=== PATIENT | male | born 1975 | race Caucasian/White ===

== ENCOUNTER 2019-02-03 08:51 | Inpatient (IN) | payer BC ==
[2019-02-03] MEDS ORDERED: ONDANSETRON 4 MG/2 ML VIAL IVPUSH ONE (09:06)
[2019-02-03] MEDS ORDERED: KETOROLAC TROMETHAMINE 30 MG/1 ML VIAL IVPUSH ONE (09:09)
[2019-02-03] MEDS ORDERED: SODIUM CHLORIDE 1,000 ML IV STA ×2 (09:10→10:56)
--- NOTE | 2019-02-03 09:38 | PDOC ---
History of Present Illness - General Chief Complaint: Pain Stated Complaint: ABD PAIN/ NAUSEOUS Time Seen by Provider: 02/03/19 09:03 History Source: Patient Exam Limitations: No Limitations - History of Present Illness Travel History: No Initial Comments: 02/03/19 09:21 43-year-old male with history of high cholesterol presents to the ED with lower abdominal sharp pain since now associated with nausea and decreased appetite since yesterday. Patient states was constipated and Tuesday but had a normal brown bowel movement this morning. Patient denies history of GI disorders urinary disorders, or recent illness. Patient does state lifts heavy items at work but denies any protrusion of the abdomen since onset. Timing/Duration: reports: constant Quality: reports: mild, sharpness Abdominal Pain Onset Location: reports: RLQ Pain Radiation: reports: groin Activities at Onset: reports: none Aggravating Factors: improves with: None Alleviating Factors: improves with: None Past History - Travel Traveled outside of the country in the last 30 days: No - Past Medical History Allergies/Adverse Reactions: Allergies Allergy/AdvReac Type Severity Reaction Status Date / Time No Known Allergies Allergy Verified 02/03/19 08:57 Home Medications: Ambulatory Orders NK [No Known Home Medication] 02/03/19 COPD: No Hypercholesterolemia: Yes - Suicide/Smoking/Psychosocial Hx Smoking Status: No Smoking History: Never smoked Number of Cigarettes Smoked Daily: 0 Substance Use Type: Alcohol (occas) Hx Substance Use Treatment: No Patient Lives Alone: No Review of Systems - Review of Systems Able to Perform ROS?: Yes Constitutional: No: Symptoms Reported HEENTM: No: Symptoms Reported Respiratory: No: Symptoms reported Cardiac (ROS): No: Symptoms Reported ABD/GI: Yes: Constipated, Nausea, Poor Appetite : No: Symptoms Reported, Flank Pain Musculoskeletal: No: Back Pain Integumentary: No: Symptoms Reported Neurological: No: Symptoms reported Endocrine: No: Symptoms Reported Hematologic/Lymphatic: No: Symptoms Reported *Physical Exam - Vital Signs Last Vital Signs Temp Pulse Resp BP Pulse Ox 112 H 18 147/96 99 02/03/19 08:55 02/03/19 08:55 02/03/19 08:55 02/03/19 08:55 - Physical Exam General Appearance: Yes: Nourished, Appropriately Dressed. No: Apparent Distress HEENT: negative: Pale Conjunctivae Neck: positive: Supple Respiratory/Chest: positive: Lungs Clear, Normal Breath Sounds. negative: Respiratory Distress, Accessory Muscle Use Cardiovascular: positive: Regular Rhythm, Tachycardia. negative: Murmur Gastrointestinal/Abdominal: positive: Normal Bowel Sounds, Soft, Distended, Tenderness (right lower quadrant /right suprapubic). negative: Guarding, Rebound, Hernia, Mass Male Genitalia: positive: normal genitalia Extremity: positive: Normal Inspection Integumentary: positive: Normal Color, Warm, Moist Neurologic: positive: Motor Strength 5/5 (ambulatory) ED Treatment Course - LABORATORY CBC & Chemistry Diagram: 02/03/19 10:05 02/03/19 10:05 Medical Decision Making - Medical Decision Making 02/03/19 09:39 Chief complaint: Right lower quadrant right suprapubic sharp like pain since now associated with decreased appetite and mild nausea. Patient has no other complaints including fever, chills urinary complaints but does state was constipated and Tuesday but did have a bowel movement and normal consistency this morning Exam: Right lower quadrant right superpubic tenderness no CVA tenderness otherwise no acute findings. Patient was tachycardic in triage. Afebrile, Plan: Urine, CBC, comp and lipase, IV fluids, Zofran and Toradol ordered. We'll consider imaging once labs are reviewed 02/03/19 10:53 Laboratory Tests 02/03/19 02/03/19 02/03/19 10:05 10:05 10:05 WBC 16.3 H Hgb 14.6 Hct 43.0 Absolute Neuts (auto) 13.2 H Sodium 138 Potassium 4.3 Chloride 101 Carbon Dioxide 31 Anion Gap 5 L BUN 17.8 Creatinine 1.3 Random Glucose 112 H Calcium 9.3 Total Bilirubin 1.5 H AST 10 L Lipase 111 Due to patient's elevated white count and elevated heart rate, patient meets SIRS criteria. Nothing by mouth status ordered abdominal CT with contrast ordered second liter of IV fluids along with lactic acid and blood cultures ordered. Patient concerning for appendicitis versus colitis 02/03/19 12:28 CT of the abdomen shows extensive inflammatory changes within the right lower quadrant involving the cecum, terminal ileum, and appendix with a small fluid collection consistent with an abscess. The etiology of this inflammation is uncertain, however, acute appendicitis is suspected. Consult to surgery placed. Patient moves all holding. Patient ordered for vancomycin and Zosyn 02/03/19 14:17 Laboratory Tests 02/03/19 11:43 Lactic Acid 1.1 oral temp 99.0. Awaiting call back from sx. 2 nd call placed by med scribe 02/03/19 14:26 Case discussed with surgeon Dr. Arambula and is recommending IR referral for drainage of the abscess, give patient antibiotics, and keeping him nothing by mouth. He states will consult while patient's here in the hospital. *DC/Admit/Observation/Transfer Diagnosis at time of Disposition: Abdominal abscess, Sepsis, Appendicitis - Discharge Dispostion Decision to Admit order: Yes - Referrals - Patient Instructions - Post Discharge Activity
[2019-02-03] MEDS ORDERED: ONDANSETRON 4 MG/2 ML VIAL ONE (09:48)
[2019-02-03] MEDS ORDERED: KETOROLAC TROMETHAMINE 30 MG/1 ML VIAL ONE (09:48)
[2019-02-03 10:17] LABS: BASO % 0.6 % (0-2.0); EOS % 0.1 % (0-4.5); HEMOGLOBIN 14.6 GM/dL (11.7-16.9); MCH 30.4 pg (25.7-33.7); MEAN CELL VOLUME 89.4 fl (80-96); MEAN PLT VOLUME 7.4 fl (7.5-11.1); MONO % 9.4 % (3.8-10.2); NEUT % 80.9 % (42.8-82.8); PLATELET COUNT 323 K/MM3 (134-434); RDW 12.4 % (11.9-15.9); WHITE BLOOD COUNT 16.3 K/mm3 (4.0-10.0)
[2019-02-03 10:34] LABS: ALBUMIN 3.7 g/dl (3.4-5.0); BILIRUBIN,TOTAL 1.5 mg/dL (0.2-1); BLOOD UREA NITROGEN 17.8 mg/dL (7-18); CALCIUM 9.3 mg/dL (8.5-10.1); CREATININE 1.3 mg/dL (0.55-1.3); POTASSIUM 4.3 mmol/L (3.5-5.1); TOT PROT 7.2 g/dl (6.4-8.2)
[2019-02-03 11:07] LABS: URINE APPEARANCE Clear; URINE BILIRUBIN 1+ (NEGATIVE); URINE COLOR Dark yellow; URINE GLUCOSE (UA) Negative (NEGATIVE); URINE KETONE Negative (NEGATIVE); URINE LEUK ESTERASE Negative (NEGATIVE); URINE NITRITE Positive (NEGATIVE); URINE PROTEIN 2+ (NEGATIVE)
[2019-02-03 11:17] LABS: EPI CELLS 1.4 /HPF (0-5/HPF); HYALINE CASTS 5.25 /lpf (0-8); URINE BACTERIA 3.2 /hpf (NEGATIVE); URINE RBC 5.6 /hpf (0-4); URINE WBC 0.6 /hpf (0-5)
[2019-02-03] MEDS ORDERED: PIPERACILLIN/TAZOB 4.5 GM 4.5 GM in DEXTROSE 5%-WATER 100 ML IVPB ONE (12:20)
[2019-02-03] MEDS ORDERED: VANCOMYCIN 1,000 MG in DEXTROSE 5%-WATER - 250 ML IVPB ONE (12:20)
[2019-02-03 12:29] LABS: INR 1.27 (0.83-1.09)
[2019-02-03] MEDS ORDERED: PIPERACILLIN/TAZOB 4.5 GM 4.5 GM/100 ML BAG IVPB ONE (12:39)
[2019-02-03] MEDS ORDERED: VANCOMYCIN 1 GRAM (PRE-DOCKED) 1,000 MG/250 ML BAG IVPB ONE (12:39)
[2019-02-03] MEDS ORDERED: HYDROmorphone HCl 2 MG/ML VIAL IVPUSH PRN (15:38)
--- NOTE | 2019-02-03 15:51 | HP ---
CHIEF COMPLAINT: abdominal pain PCP: HISTORY OF PRESENT ILLNESS: Seen and examined; please refer to resident note for further historical information. Briefly, this is a 43 y/o male with a PMH as stated presenting with abdominal pain found to have likely appendicitis with abscess formation. 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 Septic on presentation with source +tachy +leukocytosis. Pain improved with pain medications; PRN dilaudid available. I contacted ID to inform them of his presence. In the ER he was hydrated and given broad spectrum abx per sepsis protocol. Surgery will see. Overall pain has been gradually worsening since but has improved with fliuids, abx, and hydration. Confirmed plan with sgy; to consult IR for drainage. Consult placed. Recent Travel: None PAST MEDICAL HISTORY: Denies chronic conditions, obesity PAST SURGICAL HISTORY: No abdominal surgeries Social History: Denies EtOH, IVDU, or tobacco Family History: Asked and noncontributory Allergies No Known Allergies Allergy (Verified 02/03/19 08:57) HOME MEDICATIONS: Home Medications Medication Instructions Recorded NK [No Known Home Medication] 02/03/19 REVIEW OF SYSTEMS 10 sys ROS done and negative aside from HPI PHYSICAL EXAMINATION Vital Signs - 24 hr 02/03/19 08:55 Pulse Rate 112 H Respiratory 18 Rate Blood Pressure 147/96 O2 Sat by Pulse 99 Oximetry (%) GENERAL: Awake, alert, and fully oriented, in no acute distress. HEAD: Normal with no signs of trauma. EYES: Pupils equal, round and reactive to light, extraocular movements intact EARS, NOSE, THROAT: Ears normal, nares patent, NECK: Normal range of motion, supple without lymphadenopathy, JVD, or masses. LUNGS: Breath sounds equal, clear to auscultation bilaterally. No wheezes HEART: Regular rate and rhythm, normal S1 and S2 without murmur, rub or gallop. ABDOMEN: Tender lower abdomen without rigidity, +BS, ND MUSCULOSKELETAL: Normal range of motion at all joints. No bony deformities LOWER EXTREMITIES: 2+ pulses, warm, well-perfused. No calf tenderness. No peripheral edema. NEUROLOGICAL: Cranial nerves II-XII intact. Normal speech. Normal gait. PSYCHIATRIC: Cooperative. Good eye contact. Appropriate mood and affect. SKIN: Warm, dry, normal turgor, no rashes or lesions noted, normal capillary refill Laboratory Results - last 24 hr 09/12/1502/03/19 02/03/19 10:05 10:05 10:05 WBC 16.3 H RBC 4.80 Hgb 14.6 Hct 43.0 MCV 89.4 MCH 30.4 MCHC 34.0 RDW 12.4 Plt Count 323 MPV 7.4 L Absolute Neuts (auto) 13.2 H Neutrophils % 80.9 Lymphocytes % 9.0 Monocytes % 9.4 Eosinophils % 0.1 Basophils % 0.6 Nucleated RBC % 0 PT with INR INR Sodium 138 Potassium 4.3 Chloride 101 Carbon Dioxide 31 Anion Gap 5 L BUN 17.8 Creatinine 1.3 Est GFR (CKD-EPI)AfAm 76.37 Est GFR (CKD-EPI)NonAf 65.90 Random Glucose 112 H Lactic Acid Calcium 9.3 Total Bilirubin 1.5 H AST 10 L ALT 21 Alkaline Phosphatase 93 Total Protein 7.2 Albumin 3.7 Lipase 111 Urine Color Urine Appearance Urine pH Ur Specific [place] Urine Protein Urine Glucose (UA) Urine Ketones Urine Blood Urine Nitrite Urine Bilirubin Urine Urobilinogen Ur Leukocyte Esterase Urine WBC (Auto) Urine RBC (Auto) Urine Casts (Auto) U Epithel Cells (Auto) Urine Bacteria (Auto) Blood Type Antibody Screen 02/03/19 02/03/19 02/03/19 10:11 11:43 11:43 WBC RBC Hgb Hct MCV MCH MCHC RDW Plt Count MPV Absolute Neuts (auto) Neutrophils % Lymphocytes % Monocytes % Eosinophils % Basophils % Nucleated RBC % PT with INR 15.00 H INR 1.27 H Sodium Potassium Chloride Carbon Dioxide Anion Gap BUN Creatinine Est GFR (CKD-EPI)AfAm Est GFR (CKD-EPI)NonAf Random Glucose Lactic Acid 1.1 Calcium Total Bilirubin AST ALT Alkaline Phosphatase Total Protein Albumin Lipase Urine Color Dark yellow Urine Appearance Clear Urine pH 6.0 Ur Specific [place] 1.020 Urine Protein 2+ H Urine Glucose (UA) Negative Urine Ketones Negative Urine Blood 2+ H Urine Nitrite Positive Urine Bilirubin 1+ H Urine Urobilinogen 1.0 Ur Leukocyte Esterase Negative Urine WBC (Auto) 0.6 Urine RBC (Auto) 5.6 Urine Casts (Auto) 5.25 U Epithel Cells (Auto) 1.4 Urine Bacteria (Auto) 3.2 Blood Type Antibody Screen 02/03/19 11:43 WBC RBC Hgb Hct MCV MCH MCHC RDW Plt Count MPV Absolute Neuts (auto) Neutrophils % Lymphocytes % Monocytes % Eosinophils % Basophils % Nucleated RBC % PT with INR INR Sodium Potassium Chloride Carbon Dioxide Anion Gap BUN Creatinine Est GFR (CKD-EPI)AfAm Est GFR (CKD-EPI)NonAf Random Glucose Lactic Acid Calcium Total Bilirubin AST ALT Alkaline Phosphatase Total Protein Albumin Lipase Urine Color Urine Appearance Urine pH Ur Specific [place] Urine Protein Urine Glucose (UA) Urine Ketones Urine Blood Urine Nitrite Urine Bilirubin Urine Urobilinogen Ur Leukocyte Esterase Urine WBC (Auto) Urine RBC (Auto) Urine Casts (Auto) U Epithel Cells (Auto) Urine Bacteria (Auto) Blood Type B POSITIVE Antibody Screen Negative CXR reviewed; NAD with no change since 2010 CT abdomen/pelvis shows extensive inflammation in RLQ involving cecum, terminal ileum, and appendix with abscess formation. Etiology suspected to be acute appendicitis. [id number]. I am informed that these findings were discussed with surgery by ER staff. I contacted ID to inform of consult. ASSESSMENT/PLAN: Patient presents with sepsis likely secondary to acute appendicitis; surgery and ID to follow. Full code. # Sepsis 2/2 appendicitis with abscess formation -Giving additional 500cc bolus checking lactate again. Consulted IR and sgy; pending callback from IR. ID consulted for zosyn; continue given IDSA guidelines. Will need procedural intervention. # Sinus Tachycardia, improved -Fluid responsive 2/2 above # Proteinuria -Assess for underlying hypertension DM once stable # Obesity (BMI 35) -Community Outreach Manager prior to DC; PCP referral to be given Full Code Visit type - Emergency Visit Emergency Visit: Yes ED Registration Date: 02/03/19 Care time: The patient presented to the Emergency Department on the above date and was hospitalized for further evaluation of their emergent condition. - New Patient This patient is new to me today: Yes Date on this admission: 02/03/19 - Critical Care Critical Care patient: No
[2019-02-03] MEDS: LACTATED RINGERS SOLUTION 1,000 ML/1,000 ML INFUS.BAG IV SCH ×2 (16:00→21:33)
[2019-02-03 16:12] LABS: BILIRUBIN,DIRECT 0.5 mg/dL (0.0-0.2)
[2019-02-03] MEDS ORDERED: LACTATED RINGERS SOLUTION 1000 ML INFUS.BAG IV ONE (20:23)
[2019-02-03 20:50] LABS: INR 1.28 (0.83-1.09); PROTHROMBIN TIME (PATIENT) 15.2 SEC (9.7-13.0)
[2019-02-03 23:02] VITALS: BMI 39.9
--- NOTE | 2019-02-04 08:32 | PN ---
Physical Exam: SUBJECTIVE: Patient seen and examined; abx pending ID approval. Please note I discussed with service; will require them LJ and please contact Dr. Aguiar for remote approval if needed as he has appendicitis with abscess formation requiring agent with specified coverage per IDSA guidelines. I spoke with IR this AM; states as clinically stabilizing will likely plan to drain tomorrow. Not on any AC, SCDs for DVT px. Lactate negative x2 with downtrending white count and improved clinical examination. 10 sys ROS done and negative aside from HPI OBJECTIVE: Vital Signs Period Temp Pulse Resp BP Sys/Ramírez Pulse Ox Last 24 Hr 97.4 F-100.9 F 89-112 18-20 120-147/66-96 96-99 GENERAL: The patient is awake, alert, and fully oriented, in no acute distress. HEAD: Normal with no signs of trauma. EYES: PERRL, extraocular movements intact, sclera anicteric, conjunctiva clear. No ptosis. ENT: Ears normal, nares patent, oropharynx clear without exudates, moist mucous membranes. NECK: Trachea midline, full range of motion, supple. LUNGS: Breath sounds equal, clear to auscultation bilaterally, no wheezes, no crackles, no accessory muscle use. HEART: Regular rate and rhythm, S1, S2 without murmur, rub or gallop. ABDOMEN: Soft, lower abdomen tender; when I saw him a second time last night it remains somewhat improved consistent with yesterday's exam; nondistended, normoactive bowel sounds, no guarding EXTREMITIES: 2+ pulses, warm, well-perfused, no edema. NEUROLOGICAL: Cranial nerves II through XII grossly intact. Normal speech, gait not observed. PSYCH: Normal mood, normal affect. SKIN: Warm, dry, normal turgor, no rashes or lesions noted Laboratory Results - last 24 hr 02/03/19 02/03/19 02/03/19 10:05 10:05 10:05 WBC 16.3 H RBC 4.80 Hgb 14.6 Hct 43.0 MCV 89.4 MCH 30.4 MCHC 34.0 RDW 12.4 Plt Count 323 MPV 7.4 L Absolute Neuts (auto) 13.2 H Neutrophils % 80.9 Lymphocytes % 9.0 Monocytes % 9.4 Eosinophils % 0.1 Basophils % 0.6 Nucleated RBC % 0 PT with INR INR Sodium 138 Potassium 4.3 Chloride 101 Carbon Dioxide 31 Anion Gap 5 L BUN 17.8 Creatinine 1.3 Est GFR (CKD-EPI)AfAm 76.37 Est GFR (CKD-EPI)NonAf 65.90 Random Glucose 112 H Lactic Acid Calcium 9.3 Total Bilirubin 1.5 H Direct Bilirubin 0.5 H AST 10 L ALT 21 Alkaline Phosphatase 93 Total Protein 7.2 Albumin 3.7 Lipase 111 Urine Color Urine Appearance Urine pH Ur Specific [place] Urine Protein Urine Glucose (UA) Urine Ketones Urine Blood Urine Nitrite Urine Bilirubin Urine Urobilinogen Ur Leukocyte Esterase Urine WBC (Auto) Urine RBC (Auto) Urine Casts (Auto) U Epithel Cells (Auto) Urine Bacteria (Auto) Blood Type Antibody Screen 02/03/19 02/03/19 02/03/19 10:11 11:43 11:43 WBC RBC Hgb Hct MCV MCH MCHC RDW Plt Count MPV Absolute Neuts (auto) Neutrophils % Lymphocytes % Monocytes % Eosinophils % Basophils % Nucleated RBC % PT with INR 15.00 H INR 1.27 H Sodium Potassium Chloride Carbon Dioxide Anion Gap BUN Creatinine Est GFR (CKD-EPI)AfAm Est GFR (CKD-EPI)NonAf Random Glucose Lactic Acid 1.1 Calcium Total Bilirubin Direct Bilirubin AST ALT Alkaline Phosphatase Total Protein Albumin Lipase Urine Color Dark yellow Urine Appearance Clear Urine pH 6.0 Ur Specific [place] 1.020 Urine Protein 2+ H Urine Glucose (UA) Negative Urine Ketones Negative Urine Blood 2+ H Urine Nitrite Positive Urine Bilirubin 1+ H Urine Urobilinogen 1.0 Ur Leukocyte Esterase Negative Urine WBC (Auto) 0.6 Urine RBC (Auto) 5.6 Urine Casts (Auto) 5.25 U Epithel Cells (Auto) 1.4 Urine Bacteria (Auto) 3.2 Blood Type Antibody Screen 02/03/19 02/03/19 02/03/19 11:43 20:08 20:08 WBC RBC Hgb Hct MCV MCH MCHC RDW Plt Count MPV Absolute Neuts (auto) Neutrophils % Lymphocytes % Monocytes % Eosinophils % Basophils % Nucleated RBC % PT with INR 15.20 H INR 1.28 H Sodium Potassium Chloride Carbon Dioxide Anion Gap BUN Creatinine Est GFR (CKD-EPI)AfAm Est GFR (CKD-EPI)NonAf Random Glucose Lactic Acid Calcium Total Bilirubin Direct Bilirubin AST ALT Alkaline Phosphatase Total Protein Albumin Lipase Urine Color Urine Appearance Urine pH Ur Specific [place] Urine Protein Urine Glucose (UA) Urine Ketones Urine Blood Urine Nitrite Urine Bilirubin Urine Urobilinogen Ur Leukocyte Esterase Urine WBC (Auto) Urine RBC (Auto) Urine Casts (Auto) U Epithel Cells (Auto) Urine Bacteria (Auto) Blood Type B POSITIVE B POSITIVE Antibody Screen Negative 02/03/19 20:58 WBC RBC Hgb Hct MCV MCH MCHC RDW Plt Count MPV Absolute Neuts (auto) Neutrophils % Lymphocytes % Monocytes % Eosinophils % Basophils % Nucleated RBC % PT with INR INR Sodium Potassium Chloride Carbon Dioxide Anion Gap BUN Creatinine Est GFR (CKD-EPI)AfAm Est GFR (CKD-EPI)NonAf Random Glucose Lactic Acid 0.7 Calcium Total Bilirubin Direct Bilirubin AST ALT Alkaline Phosphatase Total Protein Albumin Lipase Urine Color Urine Appearance Urine pH Ur Specific [place] Urine Protein Urine Glucose (UA) Urine Ketones Urine Blood Urine Nitrite Urine Bilirubin Urine Urobilinogen Ur Leukocyte Esterase Urine WBC (Auto) Urine RBC (Auto) Urine Casts (Auto) U Epithel Cells (Auto) Urine Bacteria (Auto) Blood Type Antibody Screen Active Medications Current Medications Generic Name Dose Route Start Last Admin Trade Name Freq PRN Reason Stop Dose Admin Hydromorphone HCl 1 mg 02/03/19 15:38 Dilaudid Vial - IVPUSH Q4H PRN PAIN LEVEL 7 - 10 Lactated Ringer's 1,000 ml in 1,000 mls @ 100 mls/hr 02/03/19 15:45 02/03/19 21:33 Lactated Ringers Solution IV 100 mls/hr ASDIR ALEXANDER Administration Piperacillin Sod/Tazobactam 100 mls @ 200 mls/hr 02/05/19 10:00 Sod 4.5 gm/ Dextrose IVPB Q8H-IV ALEXANDER Protocol Piperacillin Sod/Tazobactam 100 mls @ 200 mls/hr 02/04/19 10:15 Sod 4.5 gm/ Dextrose IVPB 02/05/19 02:29 Q8H-IV ALEXANDER Protocol NGTD on cultures ASSESSMENT/PLAN: Patient presents with appendicitis with abscess formation. He is being followed by IR, ID, and gen sgy. Pending IR drainage likely tomorrow. Discussed with their service. Continue abx per ID (please see in subjective; CALL ID FOR APPROVAL but he needs treatment now; protocol and restricted medication noted but he has an acute issue requiring specified agent). Problems include: -Sepsis 2/2 Appendicitis with abscess formation -Tachycardia (resolved, 2/2 above) -Obesity (BMI 40) Plan to continue isotonic fluids, broad spectrum abx, and monitor on the floor. Pending IR drainage. DVT px: SCDs Full Code Visit type - Emergency Visit Emergency Visit: No - New Patient This patient is new to me today: No - Critical Care Critical Care patient: No
[2019-02-04 09:40] LABS: HEMATOCRIT 39.8 % (35.4-49); HEMOGLOBIN 13.8 GM/dL (11.7-16.9); MCHC 34.7 g/dl (32.0-35.9); MEAN CELL VOLUME 89.4 fl (80-96); MEAN PLT VOLUME 7.6 fl (7.5-11.1); PLATELET COUNT 343 K/MM3 (134-434); RBC 4.45 M/mm3 (4.00-5.60); RDW 12.5 % (11.9-15.9); WHITE BLOOD COUNT 13.2 K/mm3 (4.0-10.0)
[2019-02-04 09:56] LABS: ALBUMIN 3.4 g/dl (3.4-5.0); BILIRUBIN,TOTAL 1.2 mg/dL (0.2-1); BLOOD UREA NITROGEN 14.8 mg/dL (7-18); CALCIUM 8.9 mg/dL (8.5-10.1); CREATININE 1.2 mg/dL (0.55-1.3); MAGNESIUM 2.3 mg/dL (1.8-2.4); POTASSIUM 3.8 mmol/L (3.5-5.1); TOT PROT 6.8 g/dl (6.4-8.2)
[2019-02-04] MEDS ORDERED: PIPERACILLIN/TAZOB 4.5 GM 4.5 GM in DEXTROSE 5%-WATER 100 ML IVPB SCH (10:15)
[2019-02-04] MEDS ORDERED: PIPERACILLIN/TAZOBACTAM 4.5 GM VIAL IVPB ONE (10:23)
[2019-02-04] MEDS ORDERED: DEXTROSE 5%-WATER 100 ML IVPB ONE (10:23)
[2019-02-04] MEDS: LACTATED RINGERS SOLUTION 1,000 ML/1,000 ML INFUS.BAG IV SCH (12:48)
--- NOTE | 2019-02-04 14:27 | CON.ID ---
Consult Consult Specialty:: infectious diseasea Referred by:: Reason for Consultation:: appendicular abscess,abd pain - History of Present Illness Chief Complaint: abd pain History of Present Illness: 43-year-old male with history of high cholesterol admitted with lower abdominal sharp pain since now associated with nausea and decreased appetite since yesterday. Patient states was constipated and Tuesday but had a normal brown bowel movement this morning. Patient denies history of GI disorders urinary disorders, or recent illness. patient came to the hospital because of continuos pain,was worked up and found to ahve appendicular abscess patient was started on abx and has started to feel better,but the pain is still present surgery has seen the patient and the plan is to drain the abscess wbc has decreased - History Source History Provided By: Patient Limitations to Obtaining History: No Limitations - Smoking History Smoking history: Never smoked Aproximately how many cigarettes per day: 0 Home Medications - Allergies Allergies/Adverse Reactions: Allergies Allergy/AdvReac Type Severity Reaction Status Date / Time No Known Allergies Allergy Verified 02/03/19 08:57 - Home Medications Home Medications: Ambulatory Orders NK [No Known Home Medication] 02/03/19 Review of Systems - Review of Systems Constitutional: reports: Fever Eyes: reports: No Symptoms HENT: reports: No Symptoms Neck: reports: No Symptoms Cardiovascular: reports: No Symptoms Respiratory: reports: No Symptoms Gastrointestinal: reports: Abdominal Pain Genitourinary: reports: No Symptoms Musculoskeletal: reports: No Symptoms Integumentary: reports: No Symptoms Neurological: reports: No Symptoms Endocrine: reports: No Symptoms Hematology/Lymphatic: reports: No Symptoms Psychiatric: reports: No Symptoms Physical Exam Vital Signs: Vital Signs Temperature 98.2 F 02/04/19 13:29 Pulse Rate 100 H 02/04/19 13:29 Respiratory Rate 20 02/04/19 13:29 Blood Pressure 136/73 02/04/19 13:29 O2 Sat by Pulse Oximetry (%) 98 02/03/19 22:47 Constitutional: Yes: Well Nourished, Calm, Mild Distress Neck: Yes: Supple, Trachea Midline Cardiovascular: Yes: Regular Rate and Rhythm Respiratory: Yes: Regular, CTA Bilaterally Gastrointestinal: Yes: Tenderness, Other (absent bowel sounds) Musculoskeletal: Yes: WNL Extremities: Yes: WNL Neurological: Yes: Alert, Oriented Psychiatric: Yes: Alert, Oriented Labs: CBC, BMP 02/04/19 08:50 02/04/19 08:50 Imaging - Results Chest X-ray: Report Reviewed, Image Reviewed Cat Scan: Report Reviewed, Image Reviewed Ultrasound: Report Reviewed, Image Reviewed Assessment/Plan ASSESSMENT/PLAN: patient coming to the hospital with ac appendicitis with appendicular abscess sepsis leukocytosis abd pain appndicitis appendicular abscess plan npo hydration plan for abscess drainage surgery on case close watch rest as per the team abx
--- NOTE | 2019-02-04 16:55 | EKG ---
Test Reason : Blood Pressure : / mmHG Vent. Rate : 103 BPM Atrial Rate : 103 BPM P-R Int : 138 ms QRS Dur : 090 ms QT Int : 344 ms P-R-T Axes : 025 009 009 degrees QTc Int : 450 ms SINUS TACHYCARDIA MINIMAL VOLTAGE CRITERIA FOR LVH, MAY BE NORMAL VARIANT BORDERLINE ECG WHEN COMPARED WITH ECG OF 24-SEP-2010 08:51, NO SIGNIFICANT CHANGE WAS FOUND Confirmed by DONALDO BURGOS MD ([id number]) on 02/04/2019 4:54:58 PM Referred By: Confirmed By:DONALDO BURGOS MD
[2019-02-04] MEDS ORDERED: PIPERACILLIN/TAZOBACTAM 3.375 GM VIAL IVPB ONE (17:11)
[2019-02-04] MEDS ORDERED: DEXTROSE 5%-WATER - 50 ML IVPB ONE (17:11)
[2019-02-04] MEDS: PIPERACILLIN/TAZOB 3.375 GM 3.375 GM in DEXTROSE 5%-WATER - 50 ML IVPB SCH (17:13)
--- NOTE | 2019-02-04 20:31 | PN ---
Progress Note (short form) - Note Progress Note: surgery pt seen and examined in am. full consult dictated. 43m with ruptured appendicitis and contained abscess with phlegmon involving appendix, terminal ileum, and cecum. surgery in acute setting setting would likely involve open right colectomy. recommendations for IR drainage have been made. if medical mgmt successful would recommend interval appendectomy in 6 weeks after colonoscopy. Pt is non toxic and disease is localized.
[2019-02-05] MEDS ORDERED: PIPERACILLIN/TAZOBACTAM 3.375 GM VIAL IVPB ONE ×3 (00:35→17:40)
[2019-02-05] MEDS ORDERED: DEXTROSE 5%-WATER - 50 ML IVPB ONE ×3 (00:36→17:40)
[2019-02-05] MEDS: PIPERACILLIN/TAZOB 3.375 GM 3.375 GM in DEXTROSE 5%-WATER - 50 ML IVPB SCH ×3 (01:20→17:42)
[2019-02-05] MEDS: LACTATED RINGERS SOLUTION 1,000 ML/1,000 ML INFUS.BAG IV SCH (03:15)
--- NOTE | 2019-02-05 07:30 | PN ---
Teaching Attending Note ATTENDING PHYSICIAN STATEMENT I saw and evaluated the patient. I reviewed the resident's note and discussed the case with the resident. I agree with the resident's findings and plan as documented. SUBJECTIVE: OBJECTIVE: ASSESSMENT AND PLAN:
[2019-02-05 08:38] LABS: BASO % 0.3 % (0-2.0); EOS % 0.6 % (0-4.5); HEMATOCRIT 39.9 % (35.4-49); HEMOGLOBIN 13.8 GM/dL (11.7-16.9); LYMPH % 9.7 % (8-40); MCH 30.8 pg (25.7-33.7); MCHC 34.6 g/dl (32.0-35.9); MEAN CELL VOLUME 89.1 fl (80-96); MEAN PLT VOLUME 7.5 fl (7.5-11.1); MONO % 6.7 % (3.8-10.2); NEUT % 82.7 % (42.8-82.8); PLATELET COUNT 339 K/MM3 (134-434); RBC 4.47 M/mm3 (4.00-5.60); RDW 12.4 % (11.9-15.9)
[2019-02-05 08:59] LABS: BLOOD UREA NITROGEN 12.9 mg/dL (7-18); CALCIUM 9.1 mg/dL (8.5-10.1); CREATININE 0.9 mg/dL (0.55-1.3)
--- NOTE | 2019-02-05 09:35 | PN ---
Progress Note, Physician History of Present Illness: patient stable stil with abd pain plan for drainage today - Current Medication List Current Medications: Active Medications Hydromorphone HCl (Dilaudid Vial -) 1 mg IVPUSH Q4H PRN PRN Reason: PAIN LEVEL 7 - 10 Lactated Ringer's (Lactated Ringers Solution) 1,000 ml in 1,000 mls @ 100 mls/ hr IV ASDIR ALEXANDER Last Admin: 02/05/19 03:15 Dose: 100 mls/hr Piperacillin Sod/Tazobactam (Sod 3.375 gm/ Dextrose) 50 mls @ 100 mls/hr IVPB Q8H-IV ALEXANDER; Protocol Last Admin: 02/05/19 09:17 Dose: 100 mls/hr - Objective Vital Signs: Vital Signs Temperature 98.4 F 02/05/19 05:48 Pulse Rate 93 H 02/05/19 05:48 Respiratory Rate 18 02/05/19 05:48 Blood Pressure 132/84 02/05/19 05:48 O2 Sat by Pulse Oximetry (%) 98 02/04/19 22:00 Constitutional: Yes: No Distress, Calm Cardiovascular: Yes: S1, S2 Respiratory: Yes: Regular, CTA Bilaterally Gastrointestinal: Yes: Soft, Tenderness, Other (absent bowel sounds) Musculoskeletal: Yes: WNL Extremities: Yes: WNL Neurological: Yes: Alert, Oriented Psychiatric: Yes: Alert, Oriented Labs: CBC, BMP 02/05/19 08:00 02/05/19 08:00 INR, PTT INR 1.28 (0.83-1.09) H 02/03/19 20:08 Assessment/Plan ASSESSMENT/PLAN: patient coming to the hospital with ac appendicitis with appendicular abscess sepsis leukocytosis abd pain appndicitis appendicular abscess plan npo hydration plan for abscess drainage surgery on case close watch rest as per the team abx
[2019-02-05] MEDS ORDERED: PIPERACILLIN/TAZOB 4.5 GM 4.5 GM in DEXTROSE 5%-WATER 100 ML IVPB SCH (10:00)
[2019-02-05 10:07] LABS: INR 1.2 (0.83-1.09); PROTHROMBIN TIME (PATIENT) 14.2 SEC (9.7-13.0)
--- NOTE | 2019-02-05 11:40 | CONS ---
DATE OF CONSULTATION: 02/04/2019 REASON FOR CONSULTATION: Acute appendicitis, abdominal abscess. This is an emergency room consultation at the request of the emergency room physician. Patient was seen and examined this morning at approximately 8:00. BRIEF HISTORY: This is a 43-year-old male who for several days had been having lower abdominal pain. He presented to the [facility] Emergency Room yesterday in the evening. There he was noted to have right lower quadrant tenderness. He had a low-grade fever of 100.9, and his white blood cell count was elevated at 16,000. His tenderness was localized to the right lower quadrant. He went for a CAT scan of his abdomen and pelvis, which showed an abscess in the right lower quadrant with extensive inflammatory changes involving the cecum as well as the terminal ileum and the appendix. The abscess was noted to be 4 cm x 2 cm x 5 cm in size. The patient was, otherwise, nontoxic, and since this appeared to be a contained process, decision was made for admission with evaluation by the interventional radiology service for drainage of abscess. Overnight, the patient had received Zosyn antibiotic as well as vancomycin. His fever has resolved. His white blood cell count dropped to 13,000, and he stated that he felt much better and was asking for food. He was also noted to have mildly elevated liver function tests likely secondary to sepsis; however, an ultrasound was done of the gallbladder, which showed no gallstones and no ductal dilatation. There was fatty liver. PAST MEDICAL HISTORY: Negative. PAST SURGICAL HISTORY: Nil. ALLERGIES: No known drug allergies. MEDICATIONS: Takes no medications. FAMILY HISTORY: Noncontributory. SOCIAL HISTORY: Negative for tobacco. REVIEW OF SYSTEMS: General: Denies fatigue or malaise. Cardiac: Denies chest pain or palpitations. Respiratory: Denies shortness of breath or wheeze. Gastrointestinal: As in HPI. Denies diarrhea. Denies blood in stool. Denies recent weight loss. Genitourinary: Denies dysuria. Musculoskeletal: Denies joint pain. Psychiatric: Denies anxiety, depression, or hearing voices. PHYSICAL EXAMINATION: General: This is a morbidly obese 43-year-old male in no distress. Vital Signs: He is currently afebrile. His vital signs are stable. HEENT: His head is normocephalic. His sclerae are anicteric. Neck: Supple. Chest: Clear. Abdomen: Soft. He has localized right lower quadrant tenderness with guarding as well as rebound. Overall, though, it is moderate. The remainder of his abdominal exam is benign. He has no surgical scars. Extremities: No edema. His laboratory is as stated in HPI. His imaging is as stated in HPI. ASSESSMENT/PLAN: A 43-year-old male with several days of lower abdominal pain with a CAT scan showing an abscess involving the appendix, terminal ileum, and cecum. Clinically, this is a ruptured appendix with a contained abscess. Any surgery in the acute setting would likely involve a full laparotomy with a right hemicolectomy. Also, this abscess, which has been contained by the body, would be disturbed during surgery, which could lead to worsening sepsis. Therefore, I have recommended drainage of the abscess by interventional radiology. This was recommended on February 03 in the evening. The patient is agreeable with this plan. This would hopefully allow him to get out of the hospital several days sooner and then decrease the length of time he is on antibiotics and then we could proceed with an appendectomy, and approximately 6 weeks after, a colonoscopy. Patient is currently nontoxic. He was also offered exploratory surgery and declines, and he prefers the more conservative approach. I have discussed this plan with the hospitalist service, and they are making arrangements as well as the ER physician with interventional radiology. DO FLORIAN DOTSON/[id number] MTDD
--- NOTE | 2019-02-05 14:08 | PN ---
Physical Exam: SUBJECTIVE: Patient seen and examined; he has no complaints today. pain improved. Surgery to be done severalweeks after drainagew. If he tolerates PO tomorrow and is clinically stable he can be discharged. All questions answered. Clinically improved. 10 sys ROS done and negative aside from HPI OBJECTIVE: Vital Signs Period Temp Pulse Resp BP Sys/Ramírez Pulse Ox Last 24 Hr 98.1 F-99.7 F 71-99 16-19 127-140/63-84 98-98 GENERAL: The patient is awake, alert, and fully oriented, in no acute distress. HEAD: Normal with no signs of trauma. EYES: PERRL, extraocular movements intact, sclera anicteric, conjunctiva clear. No ptosis. ENT: Ears normal, nares patent, oropharynx clear without exudates, moist mucous membranes. NECK: Trachea midline, full range of motion, supple. LUNGS: Breath sounds equal, clear to auscultation bilaterally, no wheezes, no crackles, no accessory muscle use. HEART: Regular rate and rhythm, S1, S2 without murmur, rub or gallop. ABDOMEN: Soft, lower abdomen tender; when I saw him a second time last night it remains somewhat improved consistent with yesterday's exam; nondistended, normoactive bowel sounds, no guarding EXTREMITIES: 2+ pulses, warm, well-perfused, no edema. NEUROLOGICAL: Cranial nerves II through XII grossly intact. Normal speech, gait not observed. PSYCH: Normal mood, normal affect. SKIN: Warm, dry, normal turgor, no rashes or lesions noted Laboratory Results - last 24 hr 02/05/19 02/05/19 02/05/19 08:00 08:00 08:45 WBC 12.0 H RBC 4.47 Hgb 13.8 Hct 39.9 MCV 89.1 MCH 30.8 MCHC 34.6 RDW 12.4 Plt Count 339 MPV 7.5 Absolute Neuts (auto) 9.9 H Neutrophils % 82.7 Lymphocytes % 9.7 Monocytes % 6.7 Eosinophils % 0.6 D Basophils % 0.3 Nucleated RBC % 0 PT with INR 14.20 H INR 1.20 H Sodium 140 Potassium 4.0 Chloride 104 Carbon Dioxide 28 Anion Gap 9 BUN 12.9 Creatinine 0.9 Est GFR (CKD-EPI)AfAm 119.13 Est GFR (CKD-EPI)NonAf 102.79 Random Glucose 95 Calcium 9.1 Active Medications Generic Name Dose Route Start Last Admin Trade Name Freq PRN Reason Stop Dose Admin Hydromorphone HCl 1 mg 02/03/19 15:38 Dilaudid Vial - IVPUSH Q4H PRN PAIN LEVEL 7 - 10 Lactated Ringer's 1,000 ml in 1,000 mls @ 100 mls/hr 02/03/19 15:45 02/05/19 03:15 Lactated Ringers Solution IV 100 mls/hr ASDIR ALEXANDER Administration Piperacillin Sod/Tazobactam 50 mls @ 100 mls/hr 02/04/19 18:00 02/05/19 09:17 Sod 3.375 gm/ Dextrose IVPB 100 mls/hr Q8H-IV ALEXANDER Administration Protocol NGTD on cultures ASSESSMENT/PLAN: Patient presents with appendicitis with abscess formation. He is being followed by IR, ID, and gen sgy. Drainage today, surgical followup as outpatient. If tolerating PO tomorrow and clinicaly improved will likely DC home tomorrow. Problems include: -Sepsis 2/2 Appendicitis with abscess formation; continuing zosyn, IR-guided drainage today. Discussed with [facility] surgical services. -Tachycardia (resolved, 2/2 above) -Obesity (BMI 40) Plan to continue isotonic fluids, broad spectrum abx, and monitor on the floor. Pending IR drainage. DVT px: SCDs Full Code Visit type - Emergency Visit Emergency Visit: No - New Patient This patient is new to me today: No - Critical Care Critical Care patient: No
--- NOTE | 2019-02-05 14:30 | PN ---
Progress Note (short form) - Note Progress Note: Surgery 43yo with ruptured appendicitis and contained abscess with phlegmon involving appendix, terminal ileum, and cecum. surgery in acute setting setting would likely involve open right colectomy. Plan for IR drainage today. Patient seen and examined at bedside with no new complaints. He denies any CP, SOB, Fever, Chills, N/V/D. Vital Signs Temp 98.4 F 02/05/19 05:48 Pulse 93 H 02/05/19 05:48 Resp 16 02/05/19 09:00 BP 132/84 02/05/19 05:48 Pulse Ox 98 02/05/19 09:00 Intake & Output 02/04/19 02/05/19 02/05/19 23:59 11:59 23:59 Intake Total 1200 Balance 1200 Intake: IV 1150 LACTATED RINGERS SOLUTION 1150 1,000 ml In 1,000 ml @ 100 mls/hr IV ASDIR ALEXANDER Rx#:[id number] IVPB 50 Oral 0 Other: Voiding Method Toilet Toilet # Unmeasured Voids Void 1 3 Bowel Movement No Yes # Bowel Movements 2 CBC, BMP 02/05/19 08:00 02/05/19 08:00 PE: A&Ox3, NAD Unlabored resp on RA ABD: Obese, with focal TTP and guarding over RLQ. no lesions or rashes seen. Non tender to palpation over LLQ Problem List - Problems (1) Abdominal abscess Assessment/Plan: Plan for IR drainage today. If medical management optimized, plan for interval appendectomy in 6 weeks after colonoscopy. The Pt is non toxic and disease is localized. - NPO for IR drainage today - IV ABX per ID - OOB as tolerated - start clear liquid diet tonight - d/c planning for home possibly tomorrow. Evaluation and plan discussed with Dr. Valdez Code(s): [id number] -
[2019-02-05] MEDS: SODIUM CHLORIDE 1,000 ML IV SCH (17:42)
[2019-02-06] MEDS ORDERED: PIPERACILLIN/TAZOBACTAM 3.375 GM VIAL IVPB ONE ×3 (00:41→17:45)
[2019-02-06] MEDS ORDERED: DEXTROSE 5%-WATER - 50 ML IVPB ONE ×3 (00:41→17:45)
[2019-02-06] MEDS: PIPERACILLIN/TAZOB 3.375 GM 3.375 GM in DEXTROSE 5%-WATER - 50 ML IVPB SCH ×3 (02:36→17:49)
[2019-02-06] MEDS: SODIUM CHLORIDE 1,000 ML IV SCH (05:42)
[2019-02-06 07:52] LABS: BLOOD UREA NITROGEN 13.9 mg/dL (7-18); CALCIUM 8.7 mg/dL (8.5-10.1); CREATININE 1.1 mg/dL (0.55-1.3); POTASSIUM 3.9 mmol/L (3.5-5.1)
[2019-02-06 08:12] LABS: HEMATOCRIT 37.5 % (35.4-49); MCH 31.1 pg (25.7-33.7); MCHC 34.8 g/dl (32.0-35.9); MEAN CELL VOLUME 89.4 fl (80-96); MEAN PLT VOLUME 7.4 fl (7.5-11.1); PLATELET COUNT 361 K/MM3 (134-434); RBC 4.19 M/mm3 (4.00-5.60); RDW 12.5 % (11.9-15.9); WHITE BLOOD COUNT 9.4 K/mm3 (4.0-10.0)
--- NOTE | 2019-02-06 08:21 | PN ---
Progress Note (short form) - Note Progress Note: 43m with ruptured appendicitis and contained abscess/phlegmon involving appendix , terminal ileum, and cecum. Surgery in acute setting setting would likely involve open right colectomy. Pt went to IR yesterday for possible drainage. Per patient, they were unable to perform procedure safely. This morning, found patient sitting on edge of bed. States he feels much better today compared to yesterday. Voiding spontaneously. OOB and ambulateing unassisted. Denies n/v/f/c, CP, SOB, TAYLOR. Last Vital Signs Temp Pulse Resp BP Pulse Ox 98.6 F 82 18 134/77 98 02/06/19 06:00 02/06/19 06:00 02/06/19 06:00 02/06/19 06:00 02/05/19 21:00 WBC TREND 02/03/19 02/04/19 02/05/19 02/06/19 10:05 08:50 08:00 06:00 WBC 16.3 H 13.2 H 12.0 H Pending Gen: nad Abd: Obese habitus. Soft. Minimal RLQ ttp. No guarding/reboud/rigidity Problem List - Problems (1) Acute appendicitis with rupture Assessment/Plan: 43m with ruptured appendicitis and contained abscess with phlegmon involving appendix, terminal ileum, and cecum. Surgery in acute setting setting would likely involve open right colectomy. IR unable to safely find a "window" to safely access abscess yesterday. Patient remains NPO as IR going to make a second attempt today. If IR successful, will keep patient in the hospital 1 mored day to make sure bowel wasn't inured during procedure. If unsuccessful, he will need a PICC line for 6 weeks. As well as ABD CT scan q week. NPO --> can feed after today's planned procedure. f/u WBC Cont OOB and ambulate If successful drain, will need interval appendectomy in 6 weeks ABX as out-patient (PO vs. PICC...to be determined based upon todays procedure) Above plan discussed with Dr. Valdez and agrees. Code(s): K35.32 - ACUTE APPENDICITIS WITH PERF AND LOC PERITONITIS, W/O ABSCS (2) Phlegmon Code(s): L02.91 - CUTANEOUS ABSCESS, UNSPECIFIED (3) Abdominal abscess Code(s): RFC8319 -
--- NOTE | 2019-02-06 12:03 | PN ---
Progress Note, Physician History of Present Illness: stable no new issues - Current Medication List Current Medications: Active Medications Hydromorphone HCl (Dilaudid Vial -) 1 mg IVPUSH Q4H PRN PRN Reason: PAIN LEVEL 7 - 10 Piperacillin Sod/Tazobactam (Sod 3.375 gm/ Dextrose) 50 mls @ 100 mls/hr IVPB Q8H-IV ALEXANDER; Protocol Last Admin: 02/06/19 10:08 Dose: 100 mls/hr Sodium Chloride (Normal Saline -) 1,000 mls @ 75 mls/hr IV ASDIR ALEXANDER Last Admin: 02/06/19 05:42 Dose: 75 mls/hr - Objective Vital Signs: Vital Signs Temperature 98.6 F 02/06/19 06:00 Pulse Rate 98 H 02/06/19 11:16 Respiratory Rate 22 H 02/06/19 11:16 Blood Pressure 154/69 02/06/19 11:16 O2 Sat by Pulse Oximetry (%) 100 02/06/19 11:16 Constitutional: Yes: No Distress, Calm Cardiovascular: Yes: S1, S2 Respiratory: Yes: Regular, CTA Bilaterally Gastrointestinal: Yes: Soft, Tenderness Musculoskeletal: Yes: WNL Extremities: Yes: WNL Labs: CBC, BMP 02/06/19 06:00 02/06/19 06:00 INR, PTT INR 1.20 (0.83-1.09) H 02/05/19 08:45 Assessment/Plan ASSESSMENT/PLAN: patient coming to the hospital with ac appendicitis with appendicular abscess sepsis leukocytosis abd pain appndicitis appendicular abscess plan npo hydration await for cx reports surgery on case close watch rest as per the team abx
[2019-02-06] MEDS ORDERED: ACETAMINOPHEN 500 MG TABLET (FP) PO PRN (21:29)
--- NOTE | 2019-02-06 21:37 | PN ---
Physical Exam: SUBJECTIVE: Patient seen and examined; no new complaints. Seen post procedure; was already cleared for diet when I encountered; eating without difficulty. Pending clearance from ID tomorrow and can likely be DC'd. 10 sys ROS done and negative aside from HPI OBJECTIVE: Vital Signs Period Temp Pulse Resp BP Sys/Ramírez Pulse Ox Last 24 Hr 98.1 F-99.2 F 82-109 13-22 134-154/62-93 100-100 GENERAL: The patient is awake, alert, and fully oriented, in no acute distress. HEAD: Normal with no signs of trauma. EYES: PERRL, extraocular movements intact, sclera anicteric, conjunctiva clear. No ptosis. ENT: Ears normal, nares patent, oropharynx clear without exudates, moist mucous membranes. NECK: Trachea midline, full range of motion, supple. LUNGS: Breath sounds equal, clear to auscultation bilaterally, no wheezes, no crackles, no accessory muscle use. HEART: Regular rate and rhythm, S1, S2 without murmur, rub or gallop. ABDOMEN: Soft, nontender, nondistended, normoactive bowel sounds, post- procedure site bandaged. Obee abdomen. EXTREMITIES: 2+ pulses, warm, well-perfused, no edema. NEUROLOGICAL: Cranial nerves II through XII grossly intact. Normal speech, gait not observed. PSYCH: Normal mood, normal affect. SKIN: Warm, dry, normal turgor, no rashes or lesions noted Laboratory Results - last 24 hr 02/03/19 02/06/19 02/06/19 14:18 06:00 06:00 WBC 9.4 RBC 4.19 Hgb 13.0 Hct 37.5 MCV 89.4 MCH 31.1 MCHC 34.8 RDW 12.5 Plt Count 361 MPV 7.4 L Sodium 141 Potassium 3.9 Chloride 101 Carbon Dioxide 28 Anion Gap 13 BUN 13.9 Creatinine 1.1 Est GFR (CKD-EPI)AfAm 93.47 Est GFR (CKD-EPI)NonAf 80.64 Random Glucose 104 Calcium 8.7 C. trachomatis (TREVON) Negative N. gonorrhoeae (TREVON) Negative Active Medications Generic Name Dose Route Start Last Admin Trade Name Freq PRN Reason Stop Dose Admin Acetaminophen 1,000 mg 02/06/19 21:29 Tylenol - PO Q6H PRN PAIN Piperacillin Sod/Tazobactam 50 mls @ 100 mls/hr 02/04/19 18:00 02/06/19 17:49 Sod 3.375 gm/ Dextrose IVPB 100 mls/hr Q8H-IV ALEXANDER Administration Protocol Sodium Chloride 1,000 mls @ 75 mls/hr 02/05/19 17:00 02/06/19 05:42 Normal Saline - IV 75 mls/hr ASDIR ALEXANDER Administration ASSESSMENT/PLAN: Patient presents for appendicitis with abscess; on IV zosyn per ID s/p IR- drainage POD#0 with no notable complications. Eating without issues, pain greatly improved. Per ID pending culture from procedure. Spoke with surgical services PA and can be DCd tomorrow pending ID approval for OP followup with Dr. Valdez. Appreciate co-management from specialty services. Likely DC home in AM pending clearance. -Appendicitis with abscess formation, POD#1 IR drainage on zosyn -Obesity Followup: -3-5 days PCP -Surgical followup per sgy/IR FENA: -Off IVF -BMP in AM -As tolerated Full Code Visit type - Emergency Visit Emergency Visit: No - New Patient This patient is new to me today: No - Critical Care Critical Care patient: No
[2019-02-07] MEDS ORDERED: PIPERACILLIN/TAZOBACTAM 3.375 GM VIAL IVPB ONE ×3 (01:40→16:18)
[2019-02-07] MEDS ORDERED: DEXTROSE 5%-WATER - 50 ML IVPB ONE ×3 (01:43→16:18)
[2019-02-07] MEDS: PIPERACILLIN/TAZOB 3.375 GM 3.375 GM in DEXTROSE 5%-WATER - 50 ML IVPB SCH ×3 (01:45→17:43)
[2019-02-07 07:19] LABS: BASO % 0.5 % (0-2.0); EOS % 1.1 % (0-4.5); HEMATOCRIT 37.3 % (35.4-49); HEMOGLOBIN 12.8 GM/dL (11.7-16.9); LYMPH % 11.8 % (8-40); MCH 30.8 pg (25.7-33.7); MCHC 34.4 g/dl (32.0-35.9); MEAN CELL VOLUME 89.6 fl (80-96); MEAN PLT VOLUME 7.2 fl (7.5-11.1); MONO % 8.5 % (3.8-10.2); NEUT % 78.1 % (42.8-82.8); PLATELET COUNT 375 K/MM3 (134-434); RBC 4.16 M/mm3 (4.00-5.60); RDW 12.6 % (11.9-15.9)
[2019-02-07 07:41] LABS: BLOOD UREA NITROGEN 12.5 mg/dL (7-18); CALCIUM 8.6 mg/dL (8.5-10.1); POTASSIUM 4.1 mmol/L (3.5-5.1)
--- NOTE | 2019-02-07 09:18 | PN ---
Progress Note (short form) - Note Progress Note: Surgery 43yo with ruptured appendicitis and contained abscess with phlegmon involving appendix, terminal ileum, and cecum. surgery in acute setting setting would likely involve open right colectomy. S/p IR drainage yesterday. Patient seen and examined at bedside with no new complaints. He denies any CP, SOB, Fever, Chills, N/V/D. He is tolerating his diet and and moving his bowels. Vital Signs Temp 98.4 F 02/05/19 05:48 Pulse 93 H 02/05/19 05:48 Resp 16 02/05/19 09:00 BP 132/84 02/05/19 05:48 Pulse Ox 98 02/05/19 09:00 Intake & Output 02/04/19 02/05/19 02/05/19 23:59 11:59 23:59 Intake Total 1200 Balance 1200 Intake: IV 1150 LACTATED RINGERS SOLUTION 1150 1,000 ml In 1,000 ml @ 100 mls/hr IV ASDIR ALEXANDER Rx#:[id number] IVPB 50 Oral 0 Other: Voiding Method Toilet Toilet # Unmeasured Voids Void 1 3 Bowel Movement No Yes # Bowel Movements 2 CBC, BMP 02/05/19 08:00 02/05/19 08:00 PE: A&Ox3, NAD Unlabored resp on RA ABD: Obese, with minimal focal TTP and guarding over RLQ- improved from previous exam 2 days ago, dressing c/d/i with surrounding tissue intact and no tracking erythema or active d/c. no lesions or rashes seen. Non tender to palpation over LLQ B/L LE compartments soft, supple and non-tender to palpation. Preliminary blood wound cultures pending with no growth after 72hours Fluid gram stain with no PMNs or WBCs seen, cultures pending Problem List - Problems (1) Abdominal abscess Assessment/Plan: S/p IR drainage today for intaabdominal collection s/p appendix perforation. Plan for interval appendectomy in 6 weeks after colonoscopy and repeat abdominal scan. - diet as tolerated - IV ABX per ID, d/c planning for home abx - OOB as tolerated - daily IS - d/c planning for home. -follow up with Dr Valdez in 2 weeks as out patient. Evaluation and plan discussed with Dr. Valdez Code(s): [id number] -
[2019-02-07] MEDS: SODIUM CHLORIDE 1,000 ML IV SCH ×2 (09:36→19:47)
--- NOTE | 2019-02-07 10:10 | PN ---
Physical Exam: SUBJECTIVE: Patient seen and examined, abdominal pain markedly improved, minimal discomfort. Tolerating diet well, no fevers, chills, nausea, vomiting or concerns. OBJECTIVE: Vital Signs Period Temp Pulse Resp BP Sys/Ramírez Pulse Ox Last 24 Hr 98.2 F-98.8 F 84-109 13-22 114-154/62-88 95-100 Intake & Output 02/04/19 02/05/19 02/06/19 02/07/19 23:59 23:59 23:59 23:59 Intake Total 1600 3122019 Balance 1600 3124 2019 1659 General: sitting in bed in no acute distress Neck: soft, supple Chest: no rales or wheezing Abdomen:soft, obese, NT throughout on exam currently, no voluntary or involuntary guarding or rigidity, pos bowel sounds Extremities: no edema HEENT: PERRL, EOMI Psych: pleasant, co-operative Laboratory Results - last 24 hr 02/03/19 02/07/19 02/07/19 14:18 06:40 06:40 WBC 10.0 RBC 4.16 Hgb 12.8 Hct 37.3 MCV 89.6 MCH 30.8 MCHC 34.4 RDW 12.6 Plt Count 375 MPV 7.2 L Absolute Neuts (auto) 7.8 Neutrophils % 78.1 Lymphocytes % 11.8 D Monocytes % 8.5 Eosinophils % 1.1 D Basophils % 0.5 Nucleated RBC % 0 Sodium 139 Potassium 4.1 Chloride 104 Carbon Dioxide 29 Anion Gap 6 L BUN 12.5 Creatinine 1.0 Est GFR (CKD-EPI)AfAm 104.88 Est GFR (CKD-EPI)NonAf 90.49 Random Glucose 104 Calcium 8.6 C. trachomatis (TREVON) Negative N. gonorrhoeae (TREVON) Negative Active Medications Generic Name Dose Route Start Last Admin Trade Name Freq PRN Reason Stop Dose Admin Acetaminophen 1,000 mg 02/06/19 21:29 Tylenol - PO Q6H PRN PAIN 1-10 Piperacillin Sod/Tazobactam 50 mls @ 100 mls/hr 02/04/19 18:00 02/07/19 09:35 Sod 3.375 gm/ Dextrose IVPB 100 mls/hr Q8H-IV ALEXANDER Administration Protocol Sodium Chloride 1,000 mls @ 75 mls/hr 02/05/19 17:00 02/07/19 09:36 Normal Saline - IV 75 mls/hr ASDIR ALEXANDER Administration CT A/P results reviewed Abscess drainage report noted ASSESSMENT/PLAN: 43 yom with PMhx of obesity, admitted with ruptured appendicits and contained abscess/phlegmon involving appendix/terminal ileum/cecum s/p IR guided drainage. -Acute ruptured appendicitis with contained abscess/phlegmon involving appendix/ terminal ileum/cecum s/p IR guided drainage 02/06 -Sepsis -Obesity Plan: Surgery input noted, PO as tolerated. Zosyn, follow up final fluid culture results. Discussed with Dr. Aguiar. Ambulate, Incentive spirometry Dispo plan for d/c on PO abx in 24-48 hours pending final culture results. Discussed with patient in detail, all questions answered. Informed of need for surgery follow up in 2 weeks and educated on warning symptoms after discharge. Visit type - Emergency Visit Emergency Visit: Yes ED Registration Date: 02/03/19 Care time: The patient presented to the Emergency Department on the above date and was hospitalized for further evaluation of their emergent condition. - New Patient This patient is new to me today: Yes Date on this admission: 02/07/19 - Critical Care Critical Care patient: No - Discharge Referral Referred to [facility] No
--- NOTE | 2019-02-07 11:56 | PN ---
Progress Note, Physician History of Present Illness: patient stable doing well tolerating diet - Current Medication List Current Medications: Active Medications Acetaminophen (Tylenol -) 1,000 mg PO Q6H PRN PRN Reason: PAIN 1-10 Piperacillin Sod/Tazobactam (Sod 3.375 gm/ Dextrose) 50 mls @ 100 mls/hr IVPB Q8H-IV ALEXANDER; Protocol Last Admin: 02/07/19 09:35 Dose: 100 mls/hr Sodium Chloride (Normal Saline -) 1,000 mls @ 75 mls/hr IV ASDIR ALEXANDER Last Admin: 02/07/19 09:36 Dose: 75 mls/hr - Objective Vital Signs: Vital Signs Temperature 98.2 F 02/07/19 09:37 Pulse Rate 99 H 02/07/19 09:37 Respiratory Rate 17 02/07/19 09:37 Blood Pressure 131/88 02/07/19 09:37 O2 Sat by Pulse Oximetry (%) 95 02/06/19 22:00 Constitutional: Yes: No Distress, Calm Cardiovascular: Yes: S1, S2 Respiratory: Yes: Regular, CTA Bilaterally Gastrointestinal: Yes: Normal Bowel Sounds, Soft Musculoskeletal: Yes: WNL Extremities: Yes: WNL Neurological: Yes: Alert, Oriented Psychiatric: Yes: Alert, Oriented Labs: CBC, BMP 02/07/19 06:40 02/07/19 06:40 INR, PTT INR 1.20 (0.83-1.09) H 02/05/19 08:45 Assessment/Plan ASSESSMENT/PLAN: patient coming to the hospital with ac appendicitis with appendicular abscess sepsis leukocytosis abd pain appndicitis appendicular abscess plan continue current mgmt awaiting cx reports patient will be able to go on oral depending on the organism will need a total of 2 weeks
[2019-02-08] MEDS ORDERED: DEXTROSE 5%-WATER - 50 ML IVPB ONE ×2 (02:17→09:08)
[2019-02-08] MEDS ORDERED: PIPERACILLIN/TAZOBACTAM 3.375 GM VIAL IVPB ONE ×2 (02:17→09:08)
[2019-02-08] MEDS: PIPERACILLIN/TAZOB 3.375 GM 3.375 GM in DEXTROSE 5%-WATER - 50 ML IVPB SCH ×2 (02:24→10:33)
[2019-02-08 07:39] LABS: BASO % 0.4 % (0-2.0); EOS % 1.2 % (0-4.5); HEMATOCRIT 38.1 % (35.4-49); HEMOGLOBIN 12.8 GM/dL (11.7-16.9); LYMPH % 9.7 % (8-40); MCH 30.2 pg (25.7-33.7); MCHC 33.6 g/dl (32.0-35.9); MEAN CELL VOLUME 89.9 fl (80-96); MEAN PLT VOLUME 7.1 fl (7.5-11.1); NEUT % 81.7 % (42.8-82.8); PLATELET COUNT 412 K/MM3 (134-434); RBC 4.24 M/mm3 (4.00-5.60); RDW 12.7 % (11.9-15.9)
[2019-02-08 10:35] VITALS: BP 156/83; PULSE 98; TEMP 98.8
--- NOTE | 2019-02-08 11:14 | PN ---
Progress Note, Physician History of Present Illness: stable still with c/o of abd pain remained afebrile tolerating diet - Current Medication List Current Medications: Active Medications Acetaminophen (Tylenol -) 1,000 mg PO Q6H PRN PRN Reason: PAIN 1-10 Piperacillin Sod/Tazobactam (Sod 3.375 gm/ Dextrose) 50 mls @ 100 mls/hr IVPB Q8H-IV ALEXANDER; Protocol Last Admin: 02/08/19 10:33 Dose: 100 mls/hr Sodium Chloride (Normal Saline -) 1,000 mls @ 75 mls/hr IV ASDIR ALEXANDER Last Admin: 02/07/19 19:47 Dose: 75 mls/hr - Objective Vital Signs: Vital Signs Temperature 98.8 F 02/08/19 10:00 Pulse Rate 98 H 02/08/19 10:00 Respiratory Rate 18 02/08/19 10:00 Blood Pressure 156/83 02/08/19 10:00 O2 Sat by Pulse Oximetry (%) 96 02/07/19 22:00 Constitutional: Yes: No Distress, Calm, Obese Cardiovascular: Yes: S1, S2 Respiratory: Yes: Regular, CTA Bilaterally Gastrointestinal: Yes: Normal Bowel Sounds, Soft Musculoskeletal: Yes: WNL Extremities: Yes: WNL Wound/Incision: Yes: Dressing Dry and Intact Neurological: Yes: Alert, Oriented Psychiatric: Yes: Alert, Oriented Labs: CBC, BMP 02/08/19 06:43 02/07/19 06:40 INR, PTT INR 1.20 (0.83-1.09) H 02/05/19 08:45 Assessment/Plan ASSESSMENT/PLAN: patient coming to the hospital with ac appendicitis with appendicular abscess sepsis leukocytosis abd pain appndicitis appendicular abscess plan continue current mgmt can change to augmentin for 12 more days follow with surgery if starts spiking to come back to the hospital
--- NOTE | 2019-02-08 11:33 | DS ---
Physical Exam: SUBJECTIVE: Patient seen and examined, denies any pain, nausea, vomiting or concerns, tolerating diet well. OBJECTIVE: Vital Signs Period Temp Pulse Resp BP Sys/Ramírez Pulse Ox Last 24 Hr 98.2 F-99.1 F 81-98 18-20 126-156/72-91 96 Intake & Output 02/05/19 02/06/19 02/07/19 02/08/19 23:59 23:59 23:59 23:59 Intake Total 3125 2019 3365 1140 Balance 3125 2019 336 1140 PHYSICAL EXAM GENERAL: The patient is awake, alert, and fully oriented, in no acute distress. HEAD: Normal with no signs of trauma. EYES: PERRL, extraocular movements intact, sclera anicteric, conjunctiva clear. ENT: Ears normal, nares patent, oropharynx clear without exudates, moist mucous membranes. NECK: Trachea midline, full range of motion, supple. LUNGS: Breath sounds equal, clear to auscultation bilaterally, no wheezes, no crackles, no accessory muscle use. HEART: Regular rate and rhythm, S1, S2 ABDOMEN: Soft, obese, non tender throughout, No voluntary or involuntary guarding or rigidity, pos bowel sounds EXTREMITIES: 2+ pulses, warm, well-perfused, no edema. PSYCH: Normal mood, normal affect. SKIN: Warm, dry, normal turgor, no rashes or lesions noted. LABS Laboratory Results - last 24 hr 02/08/19 06:43 WBC 12.0 H RBC 4.24 Hgb 12.8 Hct 38.1 MCV 89.9 MCH 30.2 MCHC 33.6 RDW 12.7 Plt Count 412 MPV 7.1 L Absolute Neuts (auto) 9.8 H Neutrophils % 81.7 Lymphocytes % 9.7 Monocytes % 7.0 Eosinophils % 1.2 Basophils % 0.4 Nucleated RBC % 0 Microbiology 02/06/19 11:00 Abscess Gram Stain - Final 02/06/19 11:00 Abscess Body Fluid Culture - Final NO GROWTH OF AEROBIC ORGANISMS AFTER 48 HOURS INCUBATION 02/06/19 11:00 Abscess Anaerobic Culture - Final NO ANAEROBES WERE ISOLATED 02/03/19 11:43 Blood - Peripheral Venous Blood Culture - Preliminary NO GROWTH OBTAINED AFTER 96 HOURS, INCUBATION TO CONTINUE FOR 1 DAYS. 02/03/19 11:43 Blood - Peripheral Venous Blood Culture - Preliminary NO GROWTH OBTAINED AFTER 96 HOURS, INCUBATION TO CONTINUE FOR 1 DAYS. 02/03/19 10:11 Urine - Urine Clean Catch Urine Culture - Final NO GROWTH OBTAINED CT A/P (02/03/19) Sequential axial images were obtained from the domes of the diaphragms through the symphysis pubis following the administration of both oral and intravenous contrast material. The liver, spleen, pancreas, adrenal glands and kidneys demonstrate no significant abnormalities. There is no evidence of intra- abdominal or retroperitoneal lymphadenopathy or fluid collections. There is no evidence of pneumoperitoneum or bowel obstruction. There are extensive inflammatory changes involving the right lower quadrant. These include the cecum , terminal ileum and appendix. The etiology of the inflammation is uncertain and acute appendicitis is suspected. There is a fluid collection in this location consistent with an abscess. The collection measures approximately 4.1 x 2.3 x 5.3 cm. Examination of the pelvis demonstrates no evidence of pelvic masses, fluid collections or lymphadenopathy. There is no evidence of acute bony pathology. IMPRESSION: Extensive inflammatory changes within the right lower quadrant involving the cecum, terminal ileum and appendix with a small fluid collection consistent with an abscess. The etiology of this inflammation is uncertain, however, acute appendicitis is suspected. Clinical correlation and follow -up recommended. Please see above discussion. Reported By: Kavon Burnham MD Ultrasound abdomen (02/03/2019): The study is limited. There is a trace amount of ascites within the upper abdomen. The gallbladder is normal in size and free of calculi with no evidence of intra or extrahepatic biliary duct dilatation. The liver is enlarged measuring 19 cm in craniocaudad dimension. It is hyperechoic in texture consistent with diffuse fatty infiltration. No discrete intrahepatic masses are identified. Hepatopedal flow is documented within the main portal vein. The pancreas is normal in size and texture with no pancreatic masses identified. The tail of the pancreas was not well visualized due to overlying bowel gas. There is no evidence of hydronephrosis or acute abnormalities of the right kidney. There is no evidence of AAA. The IVC is patent. IMPRESSION: Diffuse fatty infiltration of the liver and trace ascites. There is no evidence of biliary ductal dilatation. Limited study as described above. Reported By: Kavon Burnham MD HOSPITAL COURSE: Date of Admission:02/03/19 Date of Discharge: 02/08/19 Minutes to complete discharge: 42 Discharge Summary Reason For Visit: APPENDICITIS Current Active Problems Abdominal abscess (Acute) Acute appendicitis with rupture (Acute) Appendicitis (Acute) Phlegmon (Acute) Sepsis (Acute) Hospital Course: 43 yom with PMhx of obesity, admitted with ruptured appendicits and contained abscess/phlegmon involving appendix/terminal ileum/cecum . He was seen by surgery and had IR guided abscess drainage. He was continued on zosyn. Drainage cultures have been negative so far. He was seen by infectious disease and recommended augmentin for 12 more days. He is advised follow up with Dr. Valdez in 2 weeks and plan for interval appendectomy in 6 weeks Discharge instructions were discussed in detail with patient and he relayed full understanding. he will be discharged home in stable condition. Condition: Good - Instructions Diet, Activity, Other Instructions: You've been diagnosed with an acute appendicitis that has ruptured. An abscess/phlegmon developed. Interventional Radiology drained the abscess. MEDICATIONS: Augmentin twice daily for 12 more days. INSTRUCTIONS: Resume your normal everyday activity as tolerated. There are no dietary restrictions. Eat healthy, high-fiber foods. Drink 6 to 8 glasses of liquid each day. This will assist in keeping your bowels are regular. FOLLOW UP: You will f/u with Dr. Shiva Valdez as an out-patient to schedule follow up in 2 weeks time. Will discuss/plan an INTERVAL APPENDECTOMY in 6 weeks. Return to ER if any of the following develops: Severe pain not relieved by medication worsening belly pain, fevers 101 or higher, nausea, vomiting, inability to eat or any new concerns. Referrals: Shiva Valdez MD [Staff Physician] - Disposition: HOME - Home Medications Comprehensive Discharge Medication List: Ambulatory Orders Amox-Tr/K Cl [Augmentin - 875Mg Tablet] 1 tab PO BID #24 tablet 02/08/19 This patient is new to me today: No Emergency Visit: Yes ED Registration Date: 02/03/19 Care time: The patient presented to the Emergency Department on the above date and was hospitalized for further evaluation of their emergent condition. Critical Care patient: No - Discharge Referral Referred to [facility] Med [facility].C[facility] No
== END 2019-02-08 14:32 | disposition home or self-care (01) | DRG 853 ==
LOC: JER 08:51 → JERBED 12:29 → J6S 19:28
PROVIDERS: ADMIT Internal Medicine; ATTEND Hospitalist
PROC: 0D9J3ZX Drainage of Appendix, Percutaneous Approach, Diagnostic (ICD-10-PCS; principal; 2019-02-06)
DX: A41.9 Sepsis, unspecified organism (principal); K35.33 Acute appendicitis with perforation, localized peritonitis, and gangrene, with abscess; E66.9 Obesity, unspecified; Z68.35 Body mass index [BMI] 35.0-35.9, adult; R00.0 Tachycardia, unspecified; D41.9 Neoplasm of uncertain behavior of unspecified urinary organ; R80.9 Proteinuria, unspecified
CPT/HCPCS: 36415; 49406; 71045-TC-FY; 74177-TC; 76098-TC-FY; 76380-TC; 76705-TC; 80048; 80053; 81003; 82248; 83605; 83690; 83735; 85025; 85027; 85610; 86850; 86900; 86901; 87040; 87070; 87075; 87086; 87205; 87491; 87591; 87899; 93005; 93010; 99284-25; J7030

== ENCOUNTER 2019-02-20 22:34 | Inpatient (IN) | payer BC ==
--- NOTE | 2019-02-20 23:25 | PDOC ---
History of Present Illness - General Chief Complaint: Edema Stated Complaint: right sided abdominal swelling Time Seen by Provider: 02/20/19 23:25 History Source: Patient Exam Limitations: No Limitations - History of Present Illness Initial Comments: Ki Reddy is a 43 yo M w a hx of HTN, HCL, and a recent appendiceal abscess 10 days ago who received a surgical drainage of the abscess by Dr. Valdez. The patient was given a 10 day course of amoxicillin clavulanate as well and told to follow up after he finished the Abx course. The patient has taken 9/10 pills and has one more dose to take tomorrow. He presents to the ER today because he is concerned that his right lower quadrant is swollen and wants to make sure there is no new infection inside of his abdomen. Patient denies any fevers, chills, abdominal pain, nausea, vomiting, diarrhea, or other complaints. Surgeon: Dr. Valdez PCP: None Past History - Past Medical History Allergies/Adverse Reactions: Allergies Allergy/AdvReac Type Severity Reaction Status Date / Time No Known Allergies Allergy Verified 02/20/19 22:39 Home Medications: Ambulatory Orders Amox-Tr/K Cl [Augmentin - 875Mg Tablet] 1 tab PO BID #24 tablet 02/08/19 COPD: No Hypercholesterolemia: Yes - Immunization History Immunization Up to Date: No - Psycho Social/Smoking Cessation Hx Smoking Status: No Smoking History: Unknown if ever smoked Have you smoked in the past 12 months: No Number of Cigarettes Smoked Daily: 0 Information on smoking cessation initiated: No Hx Alcohol Use: No Drug/Substance Use Hx: No Substance Use Type: Alcohol Hx Substance Use Treatment: No Review of Systems - Review of Systems Able to Perform ROS?: Yes Comments:: CONSTITUTIONAL: Absent: fever, no chills, no fatigue EYES: Absent: visual changes ENT: Absent: ear pain, no sore throat CARDIOVASCULAR: Absent: chest pain, no palpitations RESPIRATORY: Absent: cough, no SOB GI: Absent: abdominal pain, no nausea, no vomiting, no constipation, no diarrhea GENITOURINARY: Absent: dysuria, no frequency, no hematuria MUSKULOSKELETAL: Absent: back pain, no arthralgia, no myalgia SKIN: Absent: rash NEURO: Absent: headache *Physical Exam - Vital Signs Last Vital Signs Temp Pulse Resp BP Pulse Ox 98.0 F 102 H 16 156/99 100 02/20/19 22:36 02/20/19 22:36 02/20/19 22:36 02/20/19 22:36 02/20/19 22:36 - Physical Exam Comments: GENERAL: Well-appearing, well-nourished. No apparent distress. HEENT: Normocephalic, atraumatic. PERRL, EOM intact. CARDIOVASCULAR: Normal S1, S2. Regular rate and rhythm. PULMONARY: No evidence of respiratory distress. Lungs clear to auscultation bilaterally. No wheezing, rales or rhonchi. ABDOMEN: There is no RLQ abdominal pain or swelling. Soft, non-distended, non-tender. EXTREMITIES: Normal ROM in all four extremities. No gross deformities. SKIN: Warm, dry. No rash NEUROLOGICAL: No focal neurological deficits. ED Treatment Course - LABORATORY CBC & Chemistry Diagram: 02/21/19 00:00 02/21/19 00:00 - RADIOLOGY Radiograph Interpretation: CTAP: EXAM: ABDOMEN \T\ PELVIS CT WITH CONTR HISTORY: Rule out abscess COMPARISON: None. FINDINGS: Lung bases are clear. The visualized cardiac chambers are normal size and configuration. There is a 1.6 and a nonspecific left digital nodule. Normal liver, gallbladder, pancreas, spleen, right adrenal gland and kidneys. The stomach and abdominal small and large bowel are normal. There is no aortic aneurysm. There is no significant retroperitoneal lymphadenopathy. The pelvic small and large bowel are normal. The appendix is dilated to 12 mm in inflamed, consistent with acute appendicitis. No abscess or free air. The urinary bladder and prostate gland are normal. No pelvic free fluid is identified. There is no significant pelvic lymphadenopathy. Left inguinal calcification or possibly surgical device is noted unrelated to any acute pathology. IMPRESSION: Acute appendicitis without abscess or free air. Left adrenal nodule can be followed up with nonemergent MRI Medical Decision Making - Medical Decision Making Ki Reddy is a 43 yo M w a hx of HTN, HCL, and a recent appendiceal abscess 10 days ago who received a surgical drainage of the abscess by Dr. Valdez. The patient was given a 10 day course of amoxicillin clavulanate as well and told to follow up after he finished the Abx course. The patient has taken 9/10 pills and has one more dose to take tomorrow. He presents to the ER today because he is concerned that his right lower quadrant is swollen and wants to make sure there is no new infection inside of his abdomen. Patient denies any fevers, chills, abdominal pain, nausea, vomiting, diarrhea, or other complaints. Surgeon: Dr. Valdez Vital Signs Temp Pulse Resp BP Pulse Ox 98.0 F 102 H 16 156/99 100 02/20/19 22:36 02/20/19 22:36 02/20/19 22:36 02/20/19 22:36 02/20/19 22:36 DDx IBNLT: Abdominal abscess, abdominal swelling, UTI/Pylo, electrolyte/ metabolic disturbance Plan: Labs, Urine, IV hydration, CTAP, re-assess Labs: Elevated BUN - Hydrating patient Urine: Clean CTAP: Acute appendicitis without an abscess. appendix still inflamed, mild irregular. Re-assessment: Patient has minimal RLQ pain Surgical consult: I have spoken with Dr. Valdez who is aware of the situation. He requests for patient to be admitted to the hospital, him to be consulted, NPO , IVNS at 100 mls/hr, Zosyn Disposition: Admit *DC/Admit/Observation/Transfer Diagnosis at time of Disposition: Appendicitis Qualifiers: Appendicitis type: acute appendicitis Acute appendicitis type: unspecified acute appendicitis type Qualified Code(s): K35.80 - Unspecified acute appendicitis - Discharge Dispostion Condition at time of disposition: Stable Decision to Admit order: Yes - Referrals - Patient Instructions - Post Discharge Activity Discharge - Discharge Information Problems reviewed: Yes Clinical Impression/Diagnosis: Appendicitis Qualifiers: Appendicitis type: acute appendicitis Acute appendicitis type: unspecified acute appendicitis type Qualified Code(s): K35.80 - Unspecified acute appendicitis Condition: Stable
--- NOTE | 2019-02-20 23:27 | PDOC ---
Attending Attestation - Resident Resident Name: Sunny Gómez - ED Attending Attestation I have performed the following: I have examined & evaluated the patient, The case was reviewed & discussed with the resident, I agree w/resident's findings & plan - HPI HPI: 02/21/19 00:31 see resident hpi - Physicial Exam PE: 02/21/19 00:31 agree with resident exam - Medical Decision Making 02/21/19 00:32 44 yo male with history of appendiceal abscess pt due for appendectomy plan for repeat CT surgical consultation
[2019-02-20] MEDS ORDERED: SODIUM CHLORIDE 0.9% 500 ML INFUS.BAG IV ONE (23:30)
[2019-02-21 00:17] LABS: BASO % 0.9 % (0-2.0); EOS % 1.3 % (0-4.5); HEMATOCRIT 43.7 % (35.4-49); HEMOGLOBIN 14.5 GM/dL (11.7-16.9); LYMPH % 28.3 % (8-40); MCH 29.7 pg (25.7-33.7); MCHC 33.3 g/dl (32.0-35.9); MEAN CELL VOLUME 89.2 fl (80-96); MONO % 9.7 % (3.8-10.2); NEUT % 59.8 % (42.8-82.8); PLATELET COUNT 410 K/MM3 (134-434); WHITE BLOOD COUNT 7.4 K/mm3 (4.0-10.0)
[2019-02-21 00:24] LABS: PH,URINE 5.5 (5.0-8.0); URINE APPEARANCE CLEAR; URINE BILIRUBIN NEGATIVE (NEGATIVE); URINE COLOR YELLOW; URINE GLUCOSE (UA) NEGATIVE (NEGATIVE); URINE KETONE NEGATIVE (NEGATIVE); URINE LEUK ESTERASE NEGATIVE (NEGATIVE); URINE NITRITE NEGATIVE (NEGATIVE); URINE PROTEIN NEGATIVE (NEGATIVE); URINE UROBILINOGEN 0.2 mg/dL (0.2-1.0)
[2019-02-21 00:38] LABS: ALBUMIN 3.8 g/dl (3.4-5.0); BILIRUBIN,TOTAL 0.4 mg/dL (0.2-1); BLOOD UREA NITROGEN 18.5 mg/dL (7-18); CALCIUM 9.1 mg/dL (8.5-10.1); CREATININE 1.2 mg/dL (0.55-1.3); POTASSIUM 3.8 mmol/L (3.5-5.1); TOT PROT 7.2 g/dl (6.4-8.2)
[2019-02-21] MEDS ORDERED: PIPERACILLIN/TAZOB 4.5 GM 4.5 GM in DEXTROSE 5%-WATER 100 ML IVPB ONE (02:14)
[2019-02-21] MEDS ORDERED: SODIUM CHLORIDE 1,000 ML IV SCH (02:15)
[2019-02-21] MEDS ORDERED: PIPERACILLIN/TAZOB 4.5 GM 4.5 GM/100 ML BAG IVPB ONE (02:25)
--- NOTE | 2019-02-21 04:05 | HP ---
CHIEF COMPLAINT: abdominal swelling PCP: none HISTORY OF PRESENT ILLNESS: 44 y.o. M PMH HTN, HLD, recent appendiceal abscess 10 days ago s/p surgical drainage by Dr. Ingram (currently on last day of 10 day course Augmentin) presented for RLQ abdominal swelling. Pt says he is not in much pain, and hasnt been in pain over the past 10 days. Pain today is 2/10 in intensity. The pain is localized to RLQ and does not radiate. There is no associated nausea or vomiting. Pt has been eating well and exercising without experiencing any pain. On ROS denies CP/ SOB/ RAMIREZ/ fevers/ chills/ N/V/D/ myalgias. ER course was notable for: (1) Zosyn 4.5g (2) 1L NS (3) CT abdomen: acute appendicitis w/o abscess or free air Recent Travel: denies PAST MEDICAL HISTORY: as per HPI PAST SURGICAL HISTORY: drainage of appendiceal abscess [address] Dill Social History: denies x3 Smoking: Alcohol: Drugs: Allergies No Known Allergies Allergy (Verified 02/20/19 22:39) Family Hx: Mom & Dad Diabetes mellitus HOME MEDICATIONS: Home Medications Medication Instructions Recorded Amox-Tr/K Cl [Augmentin - 875Mg 1 tab PO BID #24 tablet 02/08/19 Tablet] REVIEW OF SYSTEMS CONSTITUTIONAL: Absent: fever, chills, diaphoresis, generalized weakness, malaise, loss of appetite, weight change HEENT: Absent: rhinorrhea, nasal congestion, throat pain, throat swelling, difficulty swallowing, mouth swelling, ear pain, eye pain, visual changes CARDIOVASCULAR: Absent: chest pain, syncope, palpitations, irregular heart rate, lightheadedness , peripheral edema RESPIRATORY: Absent: cough, shortness of breath, dyspnea with exertion, orthopnea, wheezing, stridor, hemoptysis GASTROINTESTINAL: Absent: abdominal pain, abdominal distension, nausea, vomiting, diarrhea, constipation, melena, hematochezia GENITOURINARY: Absent: dysuria, frequency, urgency, hesitancy, hematuria, flank pain, genital pain MUSCULOSKELETAL: Absent: myalgia, arthralgia, joint swelling, back pain, neck pain SKIN: Absent: rash, itching, pallor HEMATOLOGIC/IMMUNOLOGIC: Absent: easy bleeding, easy bruising, lymphadenopathy, frequent infections ENDOCRINE: Absent: unexplained weight gain, unexplained weight loss, heat intolerance, cold intolerance NEUROLOGIC: Absent: headache, focal weakness or paresthesias, dizziness, unsteady gait, seizure, mental status changes, bladder or bowel incontinence PSYCHIATRIC: Absent: anxiety, depression, suicidal or homicidal ideation, hallucinations. PHYSICAL EXAMINATION Vital Signs - 24 hr 02/20/19 02/21/19 22:36 03:46 Temperature 98.0 F Pulse Rate 102 H Pulse Rate [ 78 Left Radial] Respiratory 16 18 Rate Blood Pressure 156/99 Blood Pressure 157/85 [Left Arm] O2 Sat by Pulse 100 95 Oximetry (%) GENERAL: Awake, alert, and fully oriented, in no acute distress. HEENT: No lymphadenopathy. No scleral icterus LUNGS: Breath sounds equal, clear to auscultation bilaterally. No wheezes, and no crackles. No accessory muscle use. HEART: Regular rate and rhythm, normal S1 and S2 without murmur, rub or gallop. ABDOMEN: Minimally tender to palpation of RLQ; otherwise nontender. [place] + . Soft, not distended, normoactive bowel sounds, no guarding, no rebound, no masses. UPPER EXTREMITIES: 2+ pulses, warm, well-perfused. No cyanosis. No clubbing. No peripheral edema. LOWER EXTREMITIES: 2+ pulses, warm, well-perfused. No calf tenderness. No peripheral edema. PSYCHIATRIC: Cooperative. Good eye contact. Appropriate mood and affect. SKIN: No rashes or lesions noted Laboratory Results - last 24 hr 02/21/19 02/21/19 02/21/19 00:00 00:00 00:00 WBC 7.4 RBC 4.90 Hgb 14.5 Hct 43.7 MCV 89.2 MCH 29.7 MCHC 33.3 RDW 13.0 Plt Count 410 MPV 7.0 L Absolute Neuts (auto) 4.4 Neutrophils % 59.8 D Lymphocytes % 28.3 D Monocytes % 9.7 Eosinophils % 1.3 Basophils % 0.9 Nucleated RBC % 0 Sodium 141 Potassium 3.8 Chloride 104 Carbon Dioxide 29 Anion Gap 8 BUN 18.5 H Creatinine 1.2 Est GFR (CKD-EPI)AfAm 83.54 Est GFR (CKD-EPI)NonAf 72.08 Random Glucose 97 Calcium 9.1 Total Bilirubin 0.4 AST 15 ALT 40 Alkaline Phosphatase 81 Total Protein 7.2 Albumin 3.8 Urine Color Yellow Urine Appearance Clear Urine pH 5.5 Ur Specific [place] 1.008 L Urine Protein Negative Urine Glucose (UA) Negative Urine Ketones Negative Urine Blood Negative Urine Nitrite Negative Urine Bilirubin Negative Urine Urobilinogen 0.2 Ur Leukocyte Esterase Negative ASSESSMENT/PLAN: 44 y.o. M PMH HTN, HLD, appendiceal abscess presenting for RLQ edema found to have acute appendicitis. #Acute appendicitis -CT abdomen confirms appendicitis w/o abscess or free air -S/p Zosyn 4.5g -Surgery consulted (Dr. Dill)- on board for OR tomorrow -C/w IVF: NS @100mL/ hr -Monitor vitals -NPO -F/u ID consult #Hx appendiceal abscess -On day #03/08 Augmentin -Resolved on repeat imaging -Abd fluid drainage cultures negative for organisms #L adrenal nodule -Incidental finding on CT abdomen -Outpatient workup recommended #FEN -NS -Monitor lytes -NPO #DVT PPX: SCDs Visit type - Emergency Visit Emergency Visit: Yes ED Registration Date: 02/21/19 Care time: The patient presented to the Emergency Department on the above date and was hospitalized for further evaluation of their emergent condition. - New Patient This patient is new to me today: Yes Date on this admission: 02/21/19 - Critical Care Critical Care patient: No ATTENDING PHYSICIAN STATEMENT I saw and evaluated the patient. I reviewed the resident's note and discussed the case with the resident. I agree with the resident's findings and plan as documented. SUBJECTIVE: OBJECTIVE: ASSESSMENT AND PLAN:
[2019-02-21 04:17] LABS: INR 1.03 (0.83-1.09)
[2019-02-21 04:23] LABS: PROTHROMBIN TIME (PATIENT) 12.2 SEC (9.7-13.0)
--- NOTE | 2019-02-21 04:42 | PN ---
Teaching Attending Note Name of Resident: Mariana Hemphill ATTENDING PHYSICIAN STATEMENT I saw and evaluated the patient. I reviewed the resident's note and discussed the case with the resident. I agree with the resident's findings and plan as documented. SUBJECTIVE: 44yo man admitted 02/03 for sepsis secondary to appendicitis, 02/06 periappendiceal abscess drained- 20cc of serous-turbinate fluid, treated with IV zosyn, no growth from culture. Was d/c 02/08 with 12 days of augment with surgery f/u. Now returns with worsening rlq abdominal pain. OBJECTIVE: Last Vital Signs Temp Pulse Resp BP Pulse Ox 98.0 F 78 18 157/85 95 02/20/19 22:36 02/21/19 03:46 02/21/19 03:46 02/21/19 03:46 02/21/19 03:46 gen -aaox3 , obese heent- at, nc neck supple cv-s1+s2+rrr abdomen -soft, nontender Abnormal Lab Results 02/21/19 02/21/19 02/21/19 00:00 00:00 00:00 MPV 7.0 L BUN 18.5 H Ur Specific [place] 1.[address] abdomen confirms appendicitis w/o abscess or free air ASSESSMENT AND PLAN: #appendicitis- did not respond to conservation management s/p IR periappendiceal abscess drainage and augmentin as outpatient. Surgery is warranted. -c/w zosyn -Surgery consulted (Dr. Dill) -iv fluid -type/screen -pt/ptt -keep npo -morphine iv for pain control #L adrenal nodule-Incidental finding on CT abdomen -Outpatient workup -dvt ppx- scds
[2019-02-21 07:12] VITALS: BMI 39.2
--- NOTE | 2019-02-21 11:01 | EKG ---
Test Reason : Blood Pressure : / mmHG Vent. Rate : 084 BPM Atrial Rate : 084 BPM P-R Int : 144 ms QRS Dur : 088 ms QT Int : 372 ms P-R-T Axes : 028 002 018 degrees QTc Int : 439 ms NORMAL SINUS RHYTHM NORMAL ECG WHEN COMPARED WITH ECG OF 03-FEB-2019 11:38, NO SIGNIFICANT CHANGE WAS FOUND Confirmed by EASTON PATEL MD ([id number]) on 02/21/2019 11:00:27 AM Referred By: Confirmed By:EASTON PATEL MD
--- NOTE | 2019-02-21 11:07 | PN ---
Progress Note (short form) - Note Progress Note: surgery pt seen and examined. well known to me. 3 weeks s/p drainage of appendiceal abscess and medical management of appendicitis. Pt is due to finish augmentin tomorrow. Pt eating well without fever or pain. Pt noted his rlq was more swollen so came to ER. wbc normal. no fever. exam benign. Ct shows significant improvent in inflammatory process. Plan- recommend regular diet. would extend augmentin for 7 more days. pt is scheduled to see Dr. Ambrosio in February to schedule interval appendectomy. Pt declines surgery now as still increased risk of conversion to open and right colectomy. Pt can return to work full duty no restrictions.
[2019-02-21 15:01] VITALS: BP 128/68; PULSE 80; TEMP 98.4
--- NOTE | 2019-02-21 15:06 | DS ---
Physical Exam: SUBJECTIVE: Patient seen and examined OBJECTIVE: Vital Signs Period Temp Pulse Resp BP Sys/Ramírez Pulse Ox Last 24 Hr 98.0 F-98.7 F 78-102 16-20 128-157/65-99 95-100 PHYSICAL EXAM GENERAL: The patient is awake, alert, and fully oriented, in no acute distress. HEAD: Normal with no signs of trauma. EYES: PERRL, extraocular movements intact, sclera anicteric, conjunctiva clear. ENT: Ears normal, nares patent, oropharynx clear without exudates, moist mucous membranes. NECK: Trachea midline, full range of motion, supple. LUNGS: Breath sounds equal, clear to auscultation bilaterally, no wheezes, no crackles, no accessory muscle use. HEART: Regular rate and rhythm, S1, S2 without murmur, rub or gallop. ABDOMEN: Soft, nontender, nondistended, normoactive bowel sounds, no guarding, no rebound, no hepatosplenomegaly, no masses. EXTREMITIES: 2+ pulses, warm, well-perfused, no edema. NEUROLOGICAL: Cranial nerves II through XII grossly intact. Normal speech, gait not observed. PSYCH: Normal mood, normal affect. SKIN: Warm, dry, normal turgor, no rashes or lesions noted. LABS Laboratory Results - last 24 hr 02/21/19 02/21/19 02/21/19 00:00 00:00 00:00 WBC 7.4 RBC 4.90 Hgb 14.5 Hct 43.7 MCV 89.2 MCH 29.7 MCHC 33.3 RDW 13.0 Plt Count 410 MPV 7.0 L Absolute Neuts (auto) 4.4 Neutrophils % 59.8 D Lymphocytes % 28.3 D Monocytes % 9.7 Eosinophils % 1.3 Basophils % 0.9 Nucleated RBC % 0 PT with INR INR PTT (Actin FS) Sodium 141 Potassium 3.8 Chloride 104 Carbon Dioxide 29 Anion Gap 8 BUN 18.5 H Creatinine 1.2 Est GFR (CKD-EPI)AfAm 83.54 Est GFR (CKD-EPI)NonAf 72.08 Random Glucose 97 Calcium 9.1 Total Bilirubin 0.4 AST 15 ALT 40 Alkaline Phosphatase 81 Total Protein 7.2 Albumin 3.8 Urine Color Yellow Urine Appearance Clear Urine pH 5.5 Ur Specific [place] 1.008 L Urine Protein Negative Urine Glucose (UA) Negative Urine Ketones Negative Urine Blood Negative Urine Nitrite Negative Urine Bilirubin Negative Urine Urobilinogen 0.2 Ur Leukocyte Esterase Negative Blood Type Antibody Screen 02/21/19 02/21/19 02/21/19 02:56 02:56 02:56 WBC RBC Hgb Hct MCV MCH MCHC RDW Plt Count MPV Absolute Neuts (auto) Neutrophils % Lymphocytes % Monocytes % Eosinophils % Basophils % Nucleated RBC % PT with INR 12.20 INR 1.03 PTT (Actin FS) 36.1 Sodium Potassium Chloride Carbon Dioxide Anion Gap BUN Creatinine Est GFR (CKD-EPI)AfAm Est GFR (CKD-EPI)NonAf Random Glucose Calcium Total Bilirubin AST ALT Alkaline Phosphatase Total Protein Albumin Urine Color Urine Appearance Urine pH Ur Specific [place] Urine Protein Urine Glucose (UA) Urine Ketones Urine Blood Urine Nitrite Urine Bilirubin Urine Urobilinogen Ur Leukocyte Esterase Blood Type B POSITIVE Antibody Screen Negative HOSPITAL COURSE: Date of Admission:02/21/19 Date of Discharge: 02/21/19 Discharge Summary Reason For Visit: APPENDICITIS Current Active Problems Abdominal abscess (Acute) Appendicitis (Acute) Condition: Stable - Instructions Diet, Activity, Other Instructions: You presented to the hospital with abdominal pain that was concerning for Acute Appendicitis. You were evaluated by a general surgeon and advised to follow up outpatient. Medication Changes: 1. Continue to take Augmentin twice a day for 7 more days. Follow up with the following physicians: 1. PCP in one week, please call to schedule follow up to further manage your diabetes 2. General surgeon (Dr. Ambrosio) in February for your already scheduled appointment to further schedule your interval appendectomy. You can return to work for full duty with no restrictions. Please continue to monitor your diet as you need to intake less sugar and drink plenty of fluids. Continue all your other medications as prescribed. Please return to the ER if you have any signs or symptoms of chest pain, shortness of breath, uncontrollable fever, chills, nausea, vomiting, numbness, tingling, or weakness in any part of your body, changes in vision, or slurred speech. Please return to the ER if symptoms persist, worsen, or new symptoms arise. Referrals: Kian Ambrosio MD [Staff Physician] - Disposition: HOME - Home Medications Comprehensive Discharge Medication List: Ambulatory Orders Amox-Tr/K Cl [Augmentin 875-125mg Tablet -] 1 tab PO BID@0800,1730 #14 tablet ATTENDING PHYSICIAN STATEMENT I saw and evaluated the patient. I reviewed the resident's note and discussed the case with the resident. I agree with the resident's findings and plan as documented. SUBJECTIVE: OBJECTIVE: ASSESSMENT AND PLAN:
[2019-02-21] MEDS ORDERED: AMOX TR/POT CLAV 875MG/125MG TABLETS (FP) PO SCH (17:30)
--- NOTE | 2019-02-21 18:01 | PN ---
Teaching Attending Note Name of Resident: Brody Aguirre ATTENDING PHYSICIAN STATEMENT I saw and evaluated the patient. I reviewed the resident's note and discussed the case with the resident. I agree with the resident's findings and plan as documented. SUBJECTIVE: RLQ abdominal pain improved. No nausea/vomiting. No diarrhea/melena/ hematochezia. No fever/chills. OBJECTIVE: Afebrile, hemodynamically Stable. Last Vital Signs Temp Pulse Resp BP Pulse Ox 98.4 F 80 20 128/68 97 02/21/19 14:59 02/21/19 14:59 02/21/19 14:59 02/21/19 14:59 02/21/19 09:00 HEENT: Atraumatic, Normocephalic. HEART: S1, S2, RRR LUNGS: clear to auscultation ABDOMEN: soft, minimal RLQ tenderness. No guarding/rebound. Bowel Sounds normal. EXTREMITIES: No edema, no calf tenderness. Laboratory Results - last 24 hr 02/21/19 02/21/19 02/21/19 00:00 00:00 00:00 WBC 7.4 RBC 4.90 Hgb 14.5 Hct 43.7 MCV 89.2 MCH 29.7 MCHC 33.3 RDW 13.0 Plt Count 410 MPV 7.0 L Absolute Neuts (auto) 4.4 Neutrophils % 59.8 D Lymphocytes % 28.3 D Monocytes % 9.7 Eosinophils % 1.3 Basophils % 0.9 Nucleated RBC % 0 PT with INR INR PTT (Actin FS) Sodium 141 Potassium 3.8 Chloride 104 Carbon Dioxide 29 Anion Gap 8 BUN 18.5 H Creatinine 1.2 Est GFR (CKD-EPI)AfAm 83.54 Est GFR (CKD-EPI)NonAf 72.08 Random Glucose 97 Calcium 9.1 Total Bilirubin 0.4 AST 15 ALT 40 Alkaline Phosphatase 81 Total Protein 7.2 Albumin 3.8 Urine Color Yellow Urine Appearance Clear Urine pH 5.5 Ur Specific [place] 1.008 L Urine Protein Negative Urine Glucose (UA) Negative Urine Ketones Negative Urine Blood Negative Urine Nitrite Negative Urine Bilirubin Negative Urine Urobilinogen 0.2 Ur Leukocyte Esterase Negative Blood Type Antibody Screen 02/21/19 02/21/19 02/21/19 02:56 02:56 02:56 WBC RBC Hgb Hct MCV MCH MCHC RDW Plt Count MPV Absolute Neuts (auto) Neutrophils % Lymphocytes % Monocytes % Eosinophils % Basophils % Nucleated RBC % PT with INR 12.20 INR 1.03 PTT (Actin FS) 36.1 Sodium Potassium Chloride Carbon Dioxide Anion Gap BUN Creatinine Est GFR (CKD-EPI)AfAm Est GFR (CKD-EPI)NonAf Random Glucose Calcium Total Bilirubin AST ALT Alkaline Phosphatase Total Protein Albumin Urine Color Urine Appearance Urine pH Ur Specific [place] Urine Protein Urine Glucose (UA) Urine Ketones Urine Blood Urine Nitrite Urine Bilirubin Urine Urobilinogen Ur Leukocyte Esterase Blood Type B POSITIVE Antibody Screen Negative Home Medications Medication Instructions Recorded Amox-Tr/K Cl [Augmentin 875-125mg 1 tab PO BID@0800,1730 #14 tablet 02/21/19 Tablet -] ASSESSMENT AND PLAN: 44 year old male with history of sepsis secondary to appendicitis, admitted 02/03 , s/p periappendiceal abscess drainage by IR 02/06, Cx negative, treated with IV Zosyn, discharged 02/08 on Augmentin, now re-presents with recurrence of RLQ abdominal pain, without nausea/vomiting/diarrhea/melena/fever/chills. CT A/P - possible recurrent/persistent acute appendicits with resolution of prior collection. He was evaluated by Surgery - patient declines appendectomy currently due to risks involved with acute surgical intervention. Surgery recommends continuation of oral Augmentin and follow up with Dr. Ambrosio as an out- patient for elective appendectomy. He has remained afebrile, hemodynamically stale, tolerating oral intake. He is strongly advised to seek medical attention if any fever/cills or worsening of abdominal pain.
== END 2019-02-21 15:22 | disposition home or self-care (01) | DRG 373 ==
LOC: JER 22:34 → JERBED 02-21 02:19 → J7W 02-21 06:36
PROVIDERS: ADMIT Internal Medicine
DX: K35.890 Other acute appendicitis without perforation or gangrene (principal)
CPT/HCPCS: 36415; 74177-TC; 80053; 81003; 85025; 85610; 85730; 86850; 86900; 86901; 87086; 93005; 93010; 97116-GP; 97161-GP; 99285-25; J7030

== ENCOUNTER 2019-05-02 07:01 | Day surgery (SDC) | payer BC ==
--- NOTE | 2019-04-25 09:28 | HP ---
DATE OF ADMISSION: 05/02/2019 DATE OF DICTATION: 03/01/2019 BRIEF HISTORY: This is a 44-year-old gentleman who at the end of December/early January presented to [facility] with a right lower quadrant pain. Diagnosis at that time was acute perforated appendicitis. He underwent interventional radiology and drainage and was managed medically. He went on to improve and subsequently discharged. On February 21, 2019, he re-presented to the hospital with complaint and worry that he had noted some swelling in his right lower quadrant. At that time, the patient underwent a CAT scan again through the emergency room. The CT demonstrated resolution of the right lower quadrant abscess that was seen in early January and improvement in the inflammatory changes in the right lower quadrant about the appendix. Patient was subsequently discharged and placed on another week's worth of p.o. antibiotics. At present, the patient followed with me in the office (March 01, 2019), and he had no complaints of fever, chills, or sweats. No complaints of pain and his appetite has been excellent. His bowel movements are normal. PAST MEDICAL HISTORY: No coronary disease, hypertension, or diabetes. PAST SURGICAL HISTORY: None. MEDICATIONS: None. ALLERGIES: None. SOCIAL HISTORY: Patient does not smoke or drink. No history of drug use. PHYSICAL EXAMINATION: Abdomen: Soft, nontender, nondistended. It is obese. He has an upper midline diastasis from xiphoid to umbilicus. He has a chronically incarcerated, small umbilical hernia. He has no right lower quadrant tenderness. No guarding. No rebound. IMPRESSION/PLAN: History of perforated acute appendicitis, intraabdominal abscess, status post percutaneous drainage and medical management. This is a 44-year-old gentleman who clearly has improved from a perforated appendix with medical management. At this point, I would recommend proceeding with an appendectomy in the next month or two. The patient understands that his perforated appendix could be related to a carcinoma and that was explained to him at the time of his initial evaluation at [facility] and the patient has opted to undergo medical management since the likelihood of a carcinoma was low. Since carcinoma is still on the differential, I think he should undergo evaluation by GI and get a full colonoscopy prior to any surgical intervention. Once the colonoscopy is performed, and assuming no suspicious findings are noted, he will then undergo an interval laparoscopic appendectomy, possible open, possible partial colectomy as needed, depending on what the appendix looks like at the base. The indications, alternatives, and complications of the procedure have been discussed. Questions answered. We will plan to obtain written consent the day of surgery. Huber BENITEZ [id number] cc: MD Luis Tang MD
[2019-05-01 15:04] VITALS: BMI 40.4
[2019-05-02] MEDS ORDERED: ERTAPENEM SODIUM 1 GM VIAL ONE (08:01)
[2019-05-02] MEDS ORDERED: TAMSULOSIN HCL 0.4 MG CAP ONE (08:01)
[2019-05-02] MEDS ORDERED: TAMSULOSIN HCL 0.4 MG CAP PO ONE (08:05)
[2019-05-02] MEDS ORDERED: LIDOCAINE HCL/PF 2% SDV 5ML VIAL ONE (09:45)
[2019-05-02] MEDS ORDERED: KETOROLAC TROMETHAMINE 30 MG/1 ML VIAL ONE (09:45)
[2019-05-02] MEDS ORDERED: DEXAMETHASONE SOD PHOSPHATE 4 MG/1 ML VIAL ONE (09:45)
[2019-05-02] MEDS ORDERED: ONDANSETRON 4 MG/2 ML VIAL ONE (09:45)
[2019-05-02] MEDS ORDERED: SODIUM CHLORIDE 0.9% P/F 10 ML VIAL IJ ONE ×2 (09:45→11:10)
[2019-05-02] MEDS ORDERED: ceFAZolin SODIUM 1 GM VIAL ONE (09:45)
[2019-05-02] MEDS ORDERED: KETAMINE HCL 200 MG/20 ML VIAL ONE (09:48)
[2019-05-02] MEDS ORDERED: PROPOFOL 20 ML ONE (09:49)
[2019-05-02] MEDS ORDERED: ROCURONIUM BROMIDE 50 MG/5 ML SYRINGE ONE ×2 (09:49→11:01)
[2019-05-02] MEDS ORDERED: MIDAZOLAM HCL 2 MG/2 ML SINGLE DOSE VIAL ONE ×3 (09:53→09:57)
[2019-05-02] MEDS ORDERED: ROPIVACAINE HCL 0.5% 30ML VIAL ONE (09:56)
[2019-05-02] MEDS ORDERED: ONDANSETRON 4 MG/2 ML VIAL IVPUSH PRN ×2 (10:34→11:26)
[2019-05-02] MEDS ORDERED: oxyCODONE HCL 5 MG TABLET PO PRN ×3 (10:34→11:26)
[2019-05-02] MEDS ORDERED: ERTAPENEM SODIUM 1 GM VIAL IVPB ONE (10:40)
[2019-05-02] MEDS ORDERED: PHENYLEPHRINE HCL 10 MG/1 ML SINGLE DOSE VIAL ONE (10:45)
[2019-05-02] MEDS ORDERED: LACTATED RINGERS SOLUTION 1,000 ML IV SCH (10:45)
[2019-05-02] MEDS ORDERED: GLYCOPYRROLATE 0.2 MG/1 ML VIAL ONE (11:25)
[2019-05-02] MEDS ORDERED: NEOSTIGMINE METHYLSULFATE 0.5 MG/1 ML - 10 ML MDV ONE (11:25)
[2019-05-02] MEDS ORDERED: ACETAMINOPHEN 325 MG TABLET (FP) PO PRN (11:26)
[2019-05-02] MEDS ORDERED: morphine SULFATE 4 MG/ML VIAL IVPB PRN (11:26)
[2019-05-02] MEDS ORDERED: D5-1/2NS+20 MEQ KCL - 20 MEQ/1,000 ML INFUS.BAG IV SCH (11:30)
[2019-05-02] MEDS ORDERED: LABETALOL HCL 5 MG/1 ML (100MG/20 ML VIAL) ONE (11:31)
--- NOTE | 2019-05-02 11:34 | HP ---
DATE OF ADMISSION: 05/02/2019 HISTORY OF PRESENT ILLNESS: Patient was initially evaluated on March 01, 2019. Please refer to that dictation for complete details. The details are essentially unchanged. This is a re-dictation due to [facility] guidelines. Patient has had a history of previous acute perforated appendicitis. Now he is here for an elective appendectomy. PAST MEDICAL HISTORY: Significant for no coronary disease, hypertension or diabetes. PAST SURGICAL HISTORY: None. MEDICATIONS: None. ALLERGIES: None. SOCIAL HISTORY: Patient does not smoke nor drink. No history of drug use. PHYSICAL EXAMINATION: Abdomen: Obese, soft, nontender and nondistended. He has an upper midline diastasis from xiphoid to umbilicus. Chronically incarcerated small umbilical hernia. He has no right lower quadrant tenderness, no guarding, no rebound. IMPRESSION/PLAN: History of perforated appendicitis. Patient is here today for elective appendectomy. The indications, alternatives and complications were discussed. Questions answered. Will plan to obtain re-consent the day of surgery. Huber BENITEZ [id number] cc: MD Luis Tang MD MTDD
--- NOTE | 2019-05-02 15:18 | OP ---
DATE OF OPERATION: 05/02/2019 PREOPERATIVE DIAGNOSIS: History of perforated acute appendicitis. POSTOPERATIVE DIAGNOSIS: History of perforated acute appendicitis. PROCEDURE: Laparoscopic partial colectomy, appendectomy. SURGEON: Kian Ambrosio MD FUR FINISHER: Antony Morales MD ANESTHESIA: Michael Cota MD (general). ESTIMATED BLOOD LOSS: Minimal. SPECIMEN: Portion of appendix with colon. INDICATION FOR PROCEDURE: This is a 44-year-old gentleman who presented late summer with perforated appendicitis. He was managed medically and now is here for interval appendectomy. Patient identified and appropriately positioned on operating room table. After placement of general anesthesia, the abdomen prepped and draped in usual sterile fashion with ChloraPrep. A supraumbilical incision was made deep in the subcutaneous tissue. The fascia was divided sharply under direct vision. A Veress needle followed by structural needle was placed. Also under direct vision, a suprapubic 12-mm port placed as well as a left lower quadrant 5-mm. The right colon was identified along with the terminal ileum. The appendix was tucked in a retrocecal/intrapelvic location and therefore the right colon had to be mobilized off the white line of T[place] with blunt dissection. Once this was accomplished, the appendix was densely adherent medially to the mesentery of the terminal ileum. This had to be with blunt and sharp dissection, and as this was accomplished, the appendix was slowly teased out of the pelvis. At this point, it was obvious it was not really retrocecal but tucked on itself into the pelvis. Using blunt dissection, the mesentery of the appendix was slowly mobilized and off the mesentery of the terminal ileum, and the appendix rolled into the operative field. Next, the mesoappendix was divided with the LigaSure device, 4 welds placed prior to complete division. The appendix was hard near the midbody tip and it was also hard at its base, and therefore a portion of the cecum had to be resected to allow a nice tight staple line. An Hooja CRISTOPHER purple load 60 stapler was used for the resection of the portion of the colon. This was placed across the cecum. It was done in such a fashion that the terminal ileum was not compromised. The stapler was fired with a single load and the specimen was placed in an EndoCatch bag and brought out through the suprapubic port site. The right gutter was then irrigated, the operative field noted to be hemostatic. Ports were removed, port sites hemostatic. The suprapubic and 5-mm supraumbilical site was reapproximated with interrupted 0 Vicryl suture, all skin closed with nohemi followed by Dermabond. At the conclusion of this case, sponge count was correct. ATTESTATION: Brief operative note handwritten on the preprinted form. [facility] queried prior to giving narcotics. Huber BENITEZ [id number] cc: Lavelle Waters MD MTDD
[2019-05-03 06:04] VITALS: BP 112/60; PULSE 74; TEMP 97.7
[2019-05-03] MEDS ORDERED: PANTOPRAZOLE SODIUM 40 MG VIAL IVPUSH SCH (10:00)
[2019-05-03] MEDS ORDERED: ENOXAPARIN NA (PORCINE) 40 MG/0.4 ML DISP.SYRIN SQ SCH (10:00)
--- NOTE | 2019-05-03 14:29 | PN ---
Progress Note (short form) - Note Progress Note: surgery pt seen and examined. feels well. ambulating and voiding abd- soft, nt, obese, incisions clean Plan- will d/c home. f/u in 2 weeks. liquids till sat. no lifting. path pending
[2019-05-03] MEDS ORDERED: ROSUVASTATIN CA 20 MG TABLET (FP) PO SCH (22:00)
[2019-05-04] MEDS ORDERED: METOPROLOL TARTRATE 50 MG TABLET (FP) PO SCH (10:00)
--- NOTE | 2019-05-04 18:44 | PATH ---
Surgical Pathology Report Patient Name: JOANNA HERRING [facility]. Rec. 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 TUMOR INVADES THROUGH THE VISCERAL PERITONEUM (SEROSA). PROXIMAL MARGIN INVOLVED BY RARE FOCUS OF ACELLULAR MUCIN IN THE SUBSEROSA. LYMPHOVASCULAR INVASION IDENTIFIED. PERINEURAL INVASION IDENTIFIED. FOCAL CHRONIC INFLAMMATION AND HISTIOCYTIC REACTION IN THE PERIAPPENDICEAL FIBROADIPOSE TISSUE PRESENT. PATHOLOGIC STAGE CLASSIFICATION (pTNM): pT4a pNX ALSO SEE SURGICAL PATHOLOGY CANCER CASE SUMMARY BELOW. Comment: The tumor measures approximately 6.1cm in length from appendiceal tip. One focus of isolated acellular mucin present in the subserosa of the proximal margin. Immunohistochemistry stained slides show tumor cells demonstrating patchy staining for neuroendocrine markers chromogranin and synaptophysin, diffuse positivity for CEA and CK20; CK 7 is negative; Ki-67 shows proliferative index~40 %. Mucicarmine stain highlights the intra and extracellular mucin. The histomorphology and immunophenotype support the above diagnosis. AE1/AE3 and CK20 (block 5) is negative in the areas of histiocytic reaction in the periappendiceal fibroadipose tissue. Mucicarmine stain, CEA and Ki-67 performed at [place], [place] ([id number]) and interpreted at [facility]. Immunohistochemistry stains AE1/AE3, CK7, CK20, chromogranin A and synaptophysin performed and interpreted at [facility]. Positive and negative controls (internal if applicable) show appropriate results Intradepartmental case reviewed with concordance of diagnosis. This case was discussed with Dr. Valdez on May 04, 2019. Comments Surgical Pathology Cancer Case Summary Procedure _x_ Appendectomy + Tumor Site + _x_ tumor occupies majority of the appendix, measuring approximately 6.1 cm from the appendiceal tip. 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) Histologic Grade _x_ G3: Poorly differentiated Tumor Extension _x_ Tumor invades the visceral peritoneum (serosa) Margins Proximal Margin _x__ Involved by acellular mucin Mesenteric Margin _x_ Uninvolved by invasive carcinoma + Distance of invasive carcinoma from closest mesenteric margin: <1 mm Lymphovascular Invasion _x_ Present Tumor Deposits _x_ Not identified + Perineural Invasion + __x_ Present Regional Lymph Nodes _x_ No lymph nodes submitted or found Pathologic Stage Classification (pTNM, AJCC 8th Edition) Primary Tumor (pT) _x_ pT4a: Tumor invades through the visceral peritoneum, including the acellular mucin or mucinous epithelium involving the serosa of the appendix or serosa of the mesoappendix Regional Lymph Nodes (pN) _x_ pNX: Regional lymph nodes cannot be assessed + Additional Pathologic Findings + _x_ Focal chronic inflammation and histiocytic reaction in the periappendiceal fibroadipose tissue. Electronically Signed Denita Gonzalez M.D. Addendum Reported: 05/08/2019 Addendum Diagnosis Additional Immunohistochemical stains performed at [facility], [place], [place] ([id number]) and interpreted at [facility] show P53 is positive. Immunohistochemical stains for MisMatch Repair Protein Analysis performed at [facility] in [place], [place] ([id number]) and interpreted at [facility] show the following: RESULTS: HMLH-1 INTACT NUCLEAR EXPRESSION HMSH-2 INTACT NUCLEAR EXPRESSION HMSH-6 INTACT NUCLEAR EXPRESSION PMS2 INTACT NUCLEAR EXPRESSION INTERPRETATION: No loss of nuclear expression of MMR proteins: low probability of microsatellite instability-high (MSI-H) Positive and negative controls (internal if applicable) show appropriate results. Maryam Armas M.D. Gross Description Received in formalin, labeled "appendix," is a 7 cm. in length vermiform appendix with a stapled margin of resection and minimal attached fat. The serosa is urbina-pink with adhesions. Sectioning reveals a possibly occluded lumen. The wall of the appendix averages 0.2 cm. in thickness. Investigations Consultant sections are submitted in one cassette. Additional cassettes are submitted as follows: 2-margin of resection; 3-9-wribihdvx of specimen from proximal to distal. The entire specimen submitted. 05/02/2019 saudi05/02/2019
== END 2019-05-03 16:11 | disposition home or self-care (01) ==
LOC: JASUSAT 07:01 → JASU-SURG 07:01 → J6S 16:23 → JASUSAT 05-03 16:11
PROVIDERS: ATTEND Surgery
PROC: 0DBH4ZZ Excision of Cecum, Percutaneous Endoscopic Approach (ICD-10-PCS; 2019-05-02)
PROC: 0DTJ4ZZ Resection of Appendix, Percutaneous Endoscopic Approach (ICD-10-PCS; principal; 2019-05-02 09:00)
DX: K36 Other appendicitis (principal)
CPT/HCPCS: 88305-TC; 88341-TC; 88342-TC; 94760

== ENCOUNTER 2019-07-24 07:39 | Inpatient (IN) | payer OTHER, BC ==
--- NOTE | 2019-07-19 09:09 | HP ---
DATE OF DICTATION: 05/15/2019 DATE OF SURGERY: 07/25/2019 REASON FOR ADMISSION: Appendiceal cancer. BRIEF HISTORY: This is a 44-year-old gentleman who had initially presented to [facility] with a perforated appendix. The patient at that time was managed medically. He subsequently then scheduled to undergo an interval appendectomy which he had in April 2019. 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 There is microscopic tumor at the stable line. There is invasion of this tumor into the subserosa. Patient is here today for a laparoscopic right hemicolectomy. PAST MEDICAL HISTORY: No coronary artery disease, hypertension, or diabetes. PAST SURGICAL HISTORY: As mentioned above. ALLERGIES: None. MEDICATION: Various antibiotics. SOCIAL HISTORY: He does not smoke, does not drink. No history of drug use. PHYSICAL EXAMINATION: Abdomen: Obese, soft, nontender, nondistended. He has upper midline diastasis. He has well healed laparoscopic appendectomy scars. No evidence of infection or hernia. IMPRESSION/PLAN: Appendiceal carcinoma: This is a 44-year-old gentleman with an unusual cancer of the appendix. 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 Patient is here today for a laparoscopic right hemicolectomy. The indications, alternatives, and complications of the procedure discussed. Questions answered. Will plan on obtaining written consent the day of surgery. SETH PORTER M.D. [id number] MTDD
[2019-07-24] MEDS ORDERED: PEG 3350/NA SULF BICARB CL/KCL 4000 ML SOLN.RECON PO ONE (10:00)
[2019-07-24] MEDS ORDERED: METOPROLOL TARTRATE 50 MG TABLET (FP) PO SCH (10:00)
[2019-07-24] MEDS ORDERED: ERTAPENEM SODIUM 1 GM in SODIUM CHLORIDE 50 ML IVPB ONE (10:45)
[2019-07-24 11:18] LABS: HEMOGLOBIN 15.7 GM/dL (11.7-16.9); MCH 30.6 pg (25.7-33.7); MCHC 34.1 g/dl (32.0-35.9); MEAN CELL VOLUME 89.6 fl (80-96); MEAN PLT VOLUME 7.2 fl (7.5-11.1); PLATELET COUNT 280 K/MM3 (134-434); RBC 5.13 M/mm3 (4.00-5.60); RDW 12.9 % (11.9-15.9); WHITE BLOOD COUNT 6.1 K/mm3 (4.0-10.0)
[2019-07-24] MEDS ORDERED: FLU VACCINE QUAD 60 MCG/0.5 ML (MDV 19-20) IM ONE (12:00)
[2019-07-24] MEDS: LACTATED RINGERS SOLUTION 1,000 ML IV SCH ×2 (12:15→22:03)
--- NOTE | 2019-07-24 13:30 | EKG ---
Test Reason : Blood Pressure : / mmHG Vent. Rate : 080 BPM Atrial Rate : 080 BPM P-R Int : 138 ms QRS Dur : 084 ms QT Int : 378 ms P-R-T Axes : 026 002 016 degrees QTc Int : 435 ms NORMAL SINUS RHYTHM NORMAL ECG WHEN COMPARED WITH ECG OF 21-FEB-2019 03:05, NO SIGNIFICANT CHANGE WAS FOUND Confirmed by Michael Velazquez MD ([id number]) on 07/24/2019 1:30:06 PM Referred By: Gladys MALLORY Confirmed By:Michael Velazquez MD
[2019-07-25] MEDS: LACTATED RINGERS SOLUTION 1,000 ML IV SCH (07:00)
[2019-07-25] MEDS ORDERED: KETOROLAC TROMETHAMINE 30 MG/1 ML VIAL ONE (07:34)
[2019-07-25] MEDS ORDERED: ceFAZolin SODIUM 1 GM VIAL ONE ×2 (07:34→07:55)
[2019-07-25] MEDS ORDERED: DEXAMETHASONE SOD PHOSPHATE 4 MG/1 ML VIAL ONE (07:34)
[2019-07-25] MEDS ORDERED: SODIUM CHLORIDE 0.9% P/F 10 ML VIAL IJ ONE (07:34)
[2019-07-25] MEDS ORDERED: LIDOCAINE HCL/PF 2% SDV 5ML VIAL ONE (07:34)
[2019-07-25] MEDS ORDERED: ONDANSETRON 4 MG/2 ML VIAL ONE (07:34)
[2019-07-25] MEDS ORDERED: SUCCINYLCHOLINE CHLORIDE 200 MG/10 ML SYRINGE ONE (07:35)
[2019-07-25] MEDS ORDERED: ROCURONIUM BROMIDE 50 MG/5 ML SYRINGE ONE ×3 (07:35→09:47)
[2019-07-25] MEDS ORDERED: MIDAZOLAM HCL 2 MG/2 ML SINGLE DOSE VIAL ONE ×3 (07:35→07:37)
[2019-07-25] MEDS ORDERED: PROPOFOL 20 ML ONE ×2 (07:35→09:38)
[2019-07-25] MEDS ORDERED: DEXMEDETOMIDINE HCL 200 MCG/2 ML IVPB ONE (07:40)
[2019-07-25] MEDS ORDERED: DEXAMETHASONE SOD PHOSPHATE/PF 10 MG/ML SDV ONE (07:40)
[2019-07-25] MEDS ORDERED: GlUCAGON HUMAN RECOMBINANT 1 MG/VIAL ONE (07:52)
[2019-07-25] MEDS ORDERED: LIDOCAINE HCL 2% (20ML MULTI-DOSE VIAL) ONE (07:58)
[2019-07-25] MEDS ORDERED: BUPIVACAINE HCL/PF 0.25% (2.5MG/ML) 10 ML VIAL ONE (08:02)
[2019-07-25] MEDS ORDERED: ceFAZolin SODIUM 1 GM VIAL IVPB ONE (08:19)
[2019-07-25] MEDS ORDERED: KETAMINE HCL 200 MG/20 ML VIAL ONE (08:21)
[2019-07-25] MEDS ORDERED: NEOSTIGMINE METHYLSULFATE 0.5 MG/1 ML - 10 ML MDV ONE (09:04)
[2019-07-25] MEDS ORDERED: GLYCOPYRROLATE 0.2 MG/1 ML VIAL ONE (09:05)
[2019-07-25] MEDS ORDERED: MAGNESIUM SULF 50% (8.12 MEQ/2 ML-1 GM VIAL) ONE (09:34)
[2019-07-25] MEDS ORDERED: DEXAMETHASONE SOD PHOSPHATE 4 MG/1 ML VIAL NR ONE (10:30)
[2019-07-25] MEDS ORDERED: BUPIVACAINE HCL 0.25% 125 MG/50 ML VIAL NR ONE (10:30)
--- NOTE | 2019-07-25 11:02 | OP ---
Operative Note - Note: Operative Date: 07/25/19 Pre-Operative Diagnosis: cancer of appendix Operation: laparoscopic right colectomy Findings: significant intra-abdominal fat, chronic scarring in rlq, no metastatic disease or adenopathy Post-Operative Diagnosis: Same as Pre-op Surgeon: Kian Ambrosio Joint Setter: Shiva Valdez Anesthesiologist/GRINDING SUPERVISOR: Sascha Lee Anesthesia: General Specimens Removed: right colon Estimated Blood Loss (mls): 30
[2019-07-25] MEDS ORDERED: oxyCODONE HCL 5 MG TABLET PO PRN (11:03)
[2019-07-25] MEDS ORDERED: ONDANSETRON 4 MG/2 ML VIAL IVPUSH PRN (11:03)
[2019-07-25] MEDS ORDERED: morphine SULFATE 4 MG/ML VIAL IVPB PRN (11:03)
[2019-07-25] MEDS ORDERED: ACETAMINOPHEN 325 MG TABLET (FP) PO PRN (11:03)
[2019-07-25] MEDS ORDERED: LACTATED RINGERS SOLUTION 1,000 ML IV SCH (12:45)
[2019-07-25] MEDS ORDERED: ACETAMINOPHEN INJECTION 100 ML IVPB ONE (12:58)
[2019-07-25] MEDS: ACETAMINOPHEN 1000 MG/100 ML VIAL (NON FORMULARY) IVPB SCH ×3 (13:00→19:41)
[2019-07-25] MEDS: D5-1/2NS+20 MEQ KCL - 20 MEQ/1,000 ML INFUS.BAG IV SCH ×2 (14:00→15:10)
[2019-07-25] MEDS: ERTAPENEM SODIUM 1 GM in SODIUM CHLORIDE 50 ML IVPB SCH (16:18)
[2019-07-26] MEDS: D5-1/2NS+20 MEQ KCL - 20 MEQ/1,000 ML INFUS.BAG IV SCH ×2 (04:07→16:52)
[2019-07-26] MEDS ORDERED: ERTAPENEM SODIUM 1 GM in SODIUM CHLORIDE 50 ML IVPB ONE (06:00)
[2019-07-26 08:06] LABS: HEMATOCRIT 40.5 % (35.4-49); HEMOGLOBIN 14.4 GM/dL (11.7-16.9); MCH 31.3 pg (25.7-33.7); MCHC 35.4 g/dl (32.0-35.9); MEAN CELL VOLUME 88.3 fl (80-96); PLATELET COUNT 248 K/MM3 (134-434); RBC 4.59 M/mm3 (4.00-5.60); RDW 12.9 % (11.9-15.9); WHITE BLOOD COUNT 9.6 K/mm3 (4.0-10.0)
--- NOTE | 2019-07-26 08:28 | PN ---
Progress Note, Physician Chief Complaint: s/p right hemicolectomy under general anesthesia History of Present Illness: post op day one - Current Medication List Current Medications: Active Medications Acetaminophen (Tylenol -) 650 mg PO Q4H PRN PRN Reason: FEVER Acetaminophen (Ofirmev Injection -) 1,000 mg IVPB Q6H [facility] Stop: 07/26/19 13:59 Last Admin: 07/25/19 19:41 Dose: 1,000 mg Enoxaparin Sodium (Lovenox -) 40 mg SQ DAILY [facility] Potassium Chloride/Dextrose/Sod Cl (D5-1/2ns+20 Meq Kcl -) 20 meq in 1,000 mls @ 100 mls/hr IV ASDIR [facility] Last Admin: 07/26/19 04:07 Dose: 100 mls/hr Ertapenem 1 gm/ Sodium (Chloride) 50 mls @ 100 mls/hr IVPB DAILY [facility] Stop: 07/26/19 10:29 Last Admin: 07/25/19 16:18 Dose: 100 mls/hr Metoprolol Tartrate (Lopressor -) 50 mg PO DAILY [facility] Morphine Sulfate (Morphine Sulfate) 8 mg IVPB Q3H PRN PRN Reason: PAIN LEVEL 7 - 10 Ondansetron HCl (Zofran Injection) 4 mg IVPUSH Q6H PRN PRN Reason: NAUSEA Oxycodone HCl (Roxicodone -) 7.5 mg PO Q4H PRN PRN Reason: PAIN LEVEL 4 - 6 Pantoprazole Sodium (Protonix Iv) 40 mg IVPUSH DAILY [facility] - Objective Vital Signs: Vital Signs Temperature 98.2 F 07/26/19 05:30 Pulse Rate 64 07/26/19 05:30 Respiratory Rate 20 07/26/19 05:30 Blood Pressure 149/71 07/26/19 05:30 O2 Sat by Pulse Oximetry (%) 97 07/25/19 21:00 Constitutional: Yes: Well Nourished Cardiovascular: Yes: WNL Respiratory: Yes: WNL Gastrointestinal: Yes: Tenderness Labs: CBC, BMP 07/26/19 07:20 Assessment/Plan doing well, no nausea or vomiting overnight, pain controlled, no anesthetic complications. Dept of anesthesia will sign off care at this time
[2019-07-26] MEDS: ACETAMINOPHEN 1000 MG/100 ML VIAL (NON FORMULARY) IVPB SCH (08:34)
--- NOTE | 2019-07-26 08:55 | OP ---
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 PROCEDURE: Laparoscopic right hemicolectomy. SURGEON: Kian Ambrosio MD. CHIEF GUARD: Shiva Valdez DO. ANESTHESIOLOGIST: Fanny Jones MD. ANESTHESIA: General anesthesia. ESTIMATED BLOOD LOSS: Minimal. SPECIMEN: Right colon. 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 He is now here for a right colectomy. Patient identified and appropriately positioned on operating table. He was placed under general anesthesia. The abdomen prepped and draped in the usual sterile fashion with ChloraPrep. An incision overlying the previous scar was made deep in the subcutaneous tissue. The fascia divided sharply. Under direct vision, the peritoneum incised, and the Veress needle was placed followed by a structural needle placed. The remaining 4 ports were placed under direct vision as well, all 5 mm. Upon placement of the laparoscope, this gentleman has a large amount of intraabdominal fat. There were no adhesions from his previous laparoscopic appendectomy. The right colon identified and the cecum lifted to the anterior abdominal wall. In doing so, the ileocolic pedicle was identified. The ileocolic pedicle was in a large amount of fat within the mesentery. The fat was sharply divided with the LigaSure device. The vessel was isolated circumferentially and then taken serially with the LigaSure, four welds placed prior to complete division. The ileocolic pedicle examined, noted to be hemostatic. The loose areolar plane was then subsequently developed with blunt dissection, but in the peritoneal side of the mesentery and fat there was a large amount, and very thick layer of fat. This was taken with LigaSure device. The duodenum identified and left in the retroperitoneal location. The colon anterior to this was subsequently lifted and into the loose areolar fat. As this approached the level of the hepatic flexure, there was again so much fat that to identify the liver bed from the medial to lateral approach was next to impossible. Therefore, the colon was now brought down from the hepatic flexure, and the reflection was taken down with LigaSure device. The fat in the posterior portion of the flexure was then serially taken with LigaSure device, four welds placed prior to complete division. Next, the transverse colon was off the omentum in a similar fashion with the LigaSure device, and the mesocolon identified for the transverse portion of the colon. Next the transverse colon lifted to the anterior abdominal wall and the fat from the medial side was then subsequently slowly divided in layers to identify the right colic as well as the right branch of the middle colic vessels. Once this was accomplished, those vessels were serially taken with LigaSure device, four welds placed prior to complete division. Now this freed up the medial surface of the mesentery, and the colon now rolled more inferiorly, and going from the lateral to the medial approach, the fat was then serially taken to connect the 2 sides. Once the proximal transverse colon was completely freed, attention was now focused back to the right gutter. The colon rolled off the right gutter, and the peritoneal reflection divided with LigaSure device at the level of the cecum where the previous appendectomy had been performed, and the drain area was a little thickened, and this area was taken with LigaSure to free up and mobilize the ileum. Once the colon completely freed, a limited midline incision was made (the port site was lengthened). A wound protector placed to the area draped in the usual fashion, and the colon extracted through this opening. The proximal transverse colon was anastomosed to the ileum in a functional [id number] fashion with CRISTOPHER 83.8-mm stapler. The antrotomy closed with a TA60 3.8-mm stapler, and the transverse staple line was then oversewn with horizontal mattress 3-0 silk sutures, and the staple line was then subsequently dunked with 3-0 silk Lembert sutures. The surgeon and offset press assistant then scrubbed and changed gloves and gown. The draped area was all handed off. The wound protector removed. The area irrigated, the operative field irrigated and noted to be hemostatic. The ports removed. Port sites were hemostatic as well. The assistant product manager now injected a total of 40 mL 0.25% Marcaine with 2 mg Decadron in the rectus sheath bilaterally as a rectus sheath block. The rectus midline was then reapproximated with interrupted 0 PDS suture. The chronically incarcerated umbilical hernia was repaired primarily with these sutures as well. The skin now stapled, and Dermabond placed to the staple line. At the conclusion of this case, sponge and instrument counts were correct. ATTESTATION: Brief operative note handwritten on the preprinted form. [facility] queried prior to giving narcotics. Huber BENITEZ [id number] cc: MD SATNAM PÉREZ MD MTDD
[2019-07-26 09:22] LABS: BLOOD UREA NITROGEN 17.9 mg/dL (7-18); CALCIUM 8.3 mg/dL (8.5-10.1); CREATININE 1.2 mg/dL (0.55-1.3); MAGNESIUM 2.6 mg/dL (1.8-2.4); PHOSPHOROUS 2.9 mg/dL (2.5-4.9); POTASSIUM 4.1 mmol/L (3.5-5.1)
--- NOTE | 2019-07-26 09:37 | PN ---
Progress Note (short form) - Note Progress Note: surgery pt seen and examined. feels well. spirometer at max. ambulating and voiding. no pain afebrile abd- soft, minimal soilage on dressing. nohemi intact. no infection Laboratory Tests 07/26/19 07:20 WBC 9.6 A/P 1) Pod#1- npo, ivf, 2) morphine, oxycodone, tyleonol -- no nsaids 3) prophylaxis- lovenox, protonix, oob, spirometer, finish invanz 4) htn- controlled, 5) appendiceal cancer- follow path
[2019-07-26] MEDS: PANTOPRAZOLE SODIUM 40 MG VIAL IVPUSH SCH (10:42)
[2019-07-26] MEDS: ERTAPENEM SODIUM 1 GM in SODIUM CHLORIDE 50 ML IVPB SCH (10:42)
[2019-07-26] MEDS: METOPROLOL TARTRATE 50 MG TABLET (FP) PO SCH (10:42)
--- NOTE | 2019-07-26 10:50 | CONSULT ---
Consult Consult Specialty:: FM Reason for Consultation:: f/u pt medically h/o htn - History Source History Provided By: Patient - Past Surgical History Past Surgical History: Yes: None - Alcohol/Substance Use Hx Alcohol Use: No History of Substance Use: reports: None - Smoking History Smoking history: Never smoked Have you smoked in the past 12 months: No Aproximately how many cigarettes per day: 0 - Social History Usual Living Arrangement: With Spouse Place of : [facility] History of Recent Travel: No Home Medications - Allergies Allergies/Adverse Reactions: Allergies Allergy/AdvReac Type Severity Reaction Status Date / Time No Known Allergies Allergy Verified 05/01/19 15:17 - Home Medications Home Medications: Ambulatory Orders Metoprolol Tartrate 50 mg PO DAILY 05/01/19 Rosuvastatin [Crestor -] 20 mg PO DAILY 05/01/19 Family Medical History Family History: Unremarkable Review of Systems - Review of Systems Constitutional: reports: No Symptoms Eyes: reports: No Symptoms HENT: reports: No Symptoms Neck: reports: No Symptoms Cardiovascular: reports: No Symptoms Respiratory: reports: No Symptoms Gastrointestinal: reports: No Symptoms Genitourinary: reports: No Symptoms Breasts: reports: No Symptoms Reported Musculoskeletal: reports: Other (rt bottuck rad to rtleg) Integumentary: reports: No Symptoms Neurological: reports: No Symptoms Endocrine: reports: No Symptoms Hematology/Lymphatic: reports: No Symptoms Psychiatric: reports: No Symptoms Physical Exam Vital Signs: Vital Signs Temperature 98.2 F 07/26/19 05:30 Pulse Rate 64 07/26/19 05:30 Respiratory Rate 20 07/26/19 05:30 Blood Pressure 149/71 07/26/19 05:30 O2 Sat by Pulse Oximetry (%) 97 07/25/19 21:00 Constitutional: Yes: Calm Eyes: Yes: WNL HENT: Yes: WNL Neck: Yes: WNL Cardiovascular: Yes: WNL Respiratory: Yes: WNL Gastrointestinal: Yes: WNL, Other (wd dry intact) ...Rectal Exam: Yes: Deferred Renal/: Yes: WNL Breast(s): Yes: WNL Musculoskeletal: Yes: Back Pain Extremities: Yes: WNL Edema: No Peripheral Pulses WNL: Yes Wound/Incision: Yes: Clean/Dry Neurological: Yes: WNL ...Motor Strength: WNL Psychiatric: Yes: WNL Labs: CBC, BMP 07/26/19 07:20 07/26/19 07:20 Assessment/Plan cont meds as is oob bowel sounds decreaced vss oob tylenol for pain dvt prophylaxisis will f/u if needed appy with me out pt will hold off feeding ? 2 days fua if ilius shoiud occur
[2019-07-26] MEDS: ENOXAPARIN NA (PORCINE) 40 MG/0.4 ML DISP.SYRIN SQ SCH (10:54)
[2019-07-26 15:15] VITALS: BMI 41.1
[2019-07-27] MEDS: D5-1/2NS+20 MEQ KCL - 20 MEQ/1,000 ML INFUS.BAG IV SCH ×3 (01:27→23:09)
[2019-07-27 08:21] LABS: BASO % 0.7 % (0-2.0); EOS % 1.5 % (0-4.5); HEMOGLOBIN 14.6 GM/dL (11.7-16.9); LYMPH % 16.3 % (8-40); MCH 31.4 pg (25.7-33.7); MCHC 35.6 g/dl (32.0-35.9); MEAN CELL VOLUME 88.3 fl (80-96); MONO % 11.1 % (3.8-10.2); NEUT % 70.4 % (42.8-82.8); PLATELET COUNT 230 K/MM3 (134-434); RBC 4.64 M/mm3 (4.00-5.60); WHITE BLOOD COUNT 7.3 K/mm3 (4.0-10.0)
[2019-07-27 08:49] LABS: BLOOD UREA NITROGEN 16.2 mg/dL (7-18); CALCIUM 8.7 mg/dL (8.5-10.1); CREATININE 1.2 mg/dL (0.55-1.3); MAGNESIUM 2.5 mg/dL (1.8-2.4); PHOSPHOROUS 2.8 mg/dL (2.5-4.9); POTASSIUM 4.1 mmol/L (3.5-5.1)
[2019-07-27] MEDS: PANTOPRAZOLE SODIUM 40 MG VIAL IVPUSH SCH (09:25)
[2019-07-27] MEDS: ENOXAPARIN NA (PORCINE) 40 MG/0.4 ML DISP.SYRIN SQ SCH (09:26)
[2019-07-27] MEDS: METOPROLOL TARTRATE 50 MG TABLET (FP) PO SCH (09:26)
--- NOTE | 2019-07-27 13:07 | PN ---
Progress Note, Physician Chief Complaint: comfotable vss no po food yet adb tympanic ? ileus sx f/u - Current Medication List Current Medications: Active Medications Acetaminophen (Tylenol -) 650 mg PO Q4H PRN PRN Reason: FEVER Acetaminophen (Tylenol -) 650 mg PO Q4H [facility] Enoxaparin Sodium (Lovenox -) 40 mg SQ DAILY [facility] Last Admin: 07/27/19 09:26 Dose: 40 mg Potassium Chloride/Dextrose/Sod Cl (D5-1/2ns+20 Meq Kcl -) 20 meq in 1,000 mls @ 100 mls/hr IV ASDIR [facility] Last Admin: 07/27/19 11:36 Dose: 100 mls/hr Metoprolol Tartrate (Lopressor -) 50 mg PO DAILY [facility] Last Admin: 07/27/19 09:26 Dose: 50 mg Morphine Sulfate (Morphine Sulfate) 8 mg IVPB Q3H PRN PRN Reason: PAIN LEVEL 7 - 10 Ondansetron HCl (Zofran Injection) 4 mg IVPUSH Q6H PRN PRN Reason: NAUSEA Oxycodone HCl (Roxicodone -) 7.5 mg PO Q4H PRN PRN Reason: PAIN LEVEL 4 - 6 Pantoprazole Sodium (Protonix Iv) 40 mg IVPUSH DAILY [facility] Last Admin: 07/27/19 09:25 Dose: 40 mg - Objective Vital Signs: Vital Signs Temperature 98.1 F 07/27/19 08:23 Pulse Rate 88 07/27/19 08:23 Respiratory Rate 16 07/27/19 08:23 Blood Pressure 122/84 07/27/19 08:23 O2 Sat by Pulse Oximetry (%) 99 07/27/19 09:00 Labs: CBC, BMP 07/27/19 07:10 07/27/19 07:10
[2019-07-27] MEDS ORDERED: ACETAMINOPHEN 325 MG TABLET (FP) PO PRN (14:49)
--- NOTE | 2019-07-27 14:52 | PN ---
Progress Note (short form) - Note Progress Note: surgery pt seen and examined. remains well. spirometer at max. ambulating and voiding. no pain. had a bm afebrile abd- soft, incisions clean, nohemi intact. no infection, minimal ruq tenderness Laboratory Tests 07/26/19 07:20 WBC 9.6 A/P 1) Pod#2- npo, ivf. poss liquids between pod 3-5 pending clinical course and abd exam. 2) morphine, oxycodone, tylenol -- no nsaids 3) prophylaxis- lovenox, protonix, oob, spirometer, off invanz 4) htn- controlled, 5) appendiceal cancer- follow path x-ray by medical team unrevealing. no surgical concerns or management decisions require imaging currently.
[2019-07-28 08:53] LABS: BASO % 0.5 % (0-2.0); EOS % 1.5 % (0-4.5); HEMATOCRIT 42.5 % (35.4-49); HEMOGLOBIN 15.2 GM/dL (11.7-16.9); MCH 31.4 pg (25.7-33.7); MCHC 35.7 g/dl (32.0-35.9); MEAN CELL VOLUME 87.8 fl (80-96); MONO % 11.9 % (3.8-10.2); NEUT % 67.1 % (42.8-82.8); PLATELET COUNT 248 K/MM3 (134-434); RBC 4.84 M/mm3 (4.00-5.60); RDW 12.9 % (11.9-15.9); WHITE BLOOD COUNT 7.2 K/mm3 (4.0-10.0)
[2019-07-28 09:30] LABS: BLOOD UREA NITROGEN 15.2 mg/dL (7-18); CALCIUM 7.9 mg/dL (8.5-10.1); CREATININE 1.2 mg/dL (0.55-1.3); MAGNESIUM 2.1 mg/dL (1.8-2.4); PHOSPHOROUS 3.4 mg/dL (2.5-4.9); POTASSIUM 4.2 mmol/L (3.5-5.1)
[2019-07-28] MEDS: ENOXAPARIN NA (PORCINE) 40 MG/0.4 ML DISP.SYRIN SQ SCH (09:30)
[2019-07-28] MEDS: D5-1/2NS+20 MEQ KCL - 20 MEQ/1,000 ML INFUS.BAG IV SCH (09:31)
[2019-07-28] MEDS: PANTOPRAZOLE SODIUM 40 MG VIAL IVPUSH SCH (09:32)
[2019-07-28] MEDS: METOPROLOL TARTRATE 50 MG TABLET (FP) PO SCH (09:32)
--- NOTE | 2019-07-28 11:23 | PN ---
Progress Note (short form) - Note Progress Note: surgery pt seen and examined. remains well. spirometer at max. ambulating and voiding. more bms. no pain afebrile abd- soft, incisions clean, nohemi intact. no infection, no tenderness and minimal distension Selected Entries 07/28/19 05:49 Temperature 98.0 F Laboratory Tests 07/27/19 07/28/19 07:10 07:00 WBC 7.3 7.2 A/P 1) Pod#3- full liquids. stop ivf. poss d/c tomorrow on liquids if tolerates. 2) morphine, oxycodone, tylenol -- no nsaids 3) prophylaxis- lovenox, protonix, oob, spirometer, 4) htn- controlled, 5) appendiceal cancer- follow path
--- NOTE | 2019-07-28 11:58 | PN ---
Progress Note, Physician Chief Complaint: none - Current Medication List Current Medications: Active Medications Acetaminophen (Tylenol -) 650 mg PO Q4H PRN PRN Reason: FEVER Acetaminophen (Tylenol -) 650 mg PO Q4H PRN PRN Reason: PAIN Enoxaparin Sodium (Lovenox -) 40 mg SQ DAILY [facility] Last Admin: 07/28/19 09:30 Dose: 40 mg Metoprolol Tartrate (Lopressor -) 50 mg PO DAILY [facility] Last Admin: 07/28/19 09:32 Dose: 50 mg Ondansetron HCl (Zofran Injection) 4 mg IVPUSH Q6H PRN PRN Reason: NAUSEA Pantoprazole Sodium (Protonix -) 40 mg PO DAILY [facility] - Objective Vital Signs: Vital Signs Temperature 98.0 F 07/28/19 05:49 Pulse Rate 75 07/28/19 05:49 Respiratory Rate 18 07/28/19 05:49 Blood Pressure 131/86 07/28/19 05:49 O2 Sat by Pulse Oximetry (%) 99 07/27/19 21:00 Constitutional: Yes: No Distress Eyes: Yes: WNL HENT: Yes: WNL Neck: Yes: WNL Cardiovascular: Yes: WNL Respiratory: Yes: WNL Gastrointestinal: Yes: Normal Bowel Sounds ...Rectal Exam: Yes: Deferred Genitourinary: Yes: WNL Musculoskeletal: Yes: WNL Extremities: Yes: WNL Edema: No Peripheral Pulses WNL: Yes Integumentary: Yes: WNL Wound/Incision: Yes: Clean/Dry Neurological: Yes: WNL ...Motor Strength: WNL Psychiatric: Yes: WNL Labs: CBC, BMP 07/28/19 07:00 07/28/19 07:00 Assessment/Plan agree w full liq po no ileus vss ? d/c in am
[2019-07-29 09:22] LABS: BASO % 0.4 % (0-2.0); EOS % 1.5 % (0-4.5); HEMATOCRIT 46.9 % (35.4-49); HEMOGLOBIN 16.5 GM/dL (11.7-16.9); LYMPH % 22.7 % (8-40); MCH 31.3 pg (25.7-33.7); MCHC 35.2 g/dl (32.0-35.9); MEAN CELL VOLUME 88.9 fl (80-96); MEAN PLT VOLUME 7.2 fl (7.5-11.1); MONO % 10.1 % (3.8-10.2); NEUT % 65.3 % (42.8-82.8); PLATELET COUNT 302 K/MM3 (134-434); RBC 5.27 M/mm3 (4.00-5.60); RDW 13.1 % (11.9-15.9); WHITE BLOOD COUNT 8.4 K/mm3 (4.0-10.0)
[2019-07-29] MEDS ORDERED: PANTOPRAZOLE 40 MG TABLET PO SCH (10:00)
[2019-07-29] MEDS: METOPROLOL TARTRATE 50 MG TABLET (FP) PO SCH (10:04)
[2019-07-29 10:05] VITALS: BP 138/86; PULSE 96; TEMP 98.3
[2019-07-29] MEDS: ENOXAPARIN NA (PORCINE) 40 MG/0.4 ML DISP.SYRIN SQ SCH (10:05)
--- NOTE | 2019-07-29 16:00 | DS ---
DATE OF ADMISSION: 07/24/2019 DATE OF DISCHARGE: 07/29/2019 ADMITTING DIAGNOSES: Cancer of the appendix with preexisting hypertension and hyperlipidemia. DISCHARGE DIAGNOSES: Cancer of the appendix with preexisting hypertension and hyperlipidemia. BRIEF HISTORY: This is a 44-year-old male who has been treated for a ruptured appendicitis in the past. This was done medically. Eventually he had an interval appendectomy, which showed that he had a cancer of his appendix. He presented to [facility] on July 24 for surgical management. He was admitted. He was given IV hydration and bowel preparation. On July 25, he underwent a laparoscopic right hemicolectomy. Please reference Dr. Kian Ambrosio's operative report for further details. Postoperatively he did well. He was treated with intravenous antibiotics. He received prophylactic Invanz. He received his usual medication for hypertension and hyperlipidemia. He is being discharged home today, July 28. He is ambulating, voiding, having bowel movements, passing gas, and tolerating a full liquid diet. He has had no fevers in the past 72 hours and only 1 recorded the entire admission, the day of surgery itself. His heart rate is 96. His blood pressure is 138/86. His white blood cell count is 8.4 without a shift. His white blood cell count has been normal throughout the admission. He is currently pain free at the time of discharge and requesting to go home. He will stay on a liquid diet until Tuesday, at which point he will transition to a regular diet. He is okay to shower. He is okay to walk. He is okay to climb stairs. He will not lift more than 20 pounds. He will follow with Dr. Ambrosio in approximately 1 to 2 weeks time to evaluate for staple removal. He will apply Vaseline to his onhemi to soften the glue. His pathology report is not available at the time of his discharge. He also was consulted on with Dr. Lavelle Waters throughout his visit to manage his hypertension and hyperlipidemia. He will follow with Dr. Waters as well regarding his medical needs. DO FLORIAN DOTSON/[id number]
--- NOTE | 2019-08-01 15:47 | PATH ---
Surgical Pathology Report Patient Name: JOANNA HERRING Med. Rec. #: [id number] /Age/Gender: 1975 (Age: 44) / M Account: [id number] Location: [address] [place] [address]/[facility] Taken: 07/25/2019 Received: 07/25/2019 Reported: 08/01/2019 Physicians: Kian Ambrosio Specimen(s) Received RIGHT COLON Clinical History Malignant neoplasm appendix Final Diagnosis COLON, RIGHT, LAPAROSCOPIC HEMICOLECTOMY: SEGMENT OF CECUM AND SURROUNDING PERICOLONIC FAT WITH CHANGES OF PRIOR PROCEDURE INCLUDING CHRONIC INFLAMMATION, HISTIOCYTIC INFILTRATE, POLARIZABLE FOREIGN BODY MATERIAL WITH ASSOCIATED FOREIGN BODY GIANT CELL REACTION. NO MALIGNANCY IDENTIFIED. PORTION OF RIGHT COLON AND TERMINAL ILEUM WITHOUT SIGNIFICANT PATHOLOGIC FINDINGS. TWELVE LYMPH NODES NEGATIVE FOR CARCINOMA (0/12). SURGICAL MARGINS ARE VIABLE. Comment: Immunohistochemical stains performed and interpreted at [facility] for AE1/3 and CK20 utilized to evaluate this case. Prior material from appendix malignancy reviewed ([id number]). Positive and negative controls (internal if applicable) show appropriate results. Electronically Signed Maryam Armas M.D. Gross Description Received in formalin labeled "right colon," is a 12.5 cm in length portion of terminal ileum with an attached 20 cm in length portion of cecum and right colon. The specimen displays 2 stapled mucosal margins as well as abundant attached pericolonic adipose tissue. There is no appendix present and there is a staple line at the previous appendiceal resection site. The remaining serosa is urbina-knowles and smooth. The mucosa is urbina with normal folds. No mucosal masses are identified. Sectioning of the pericolonic adipose tissue reveals multiple small possible lymph nodes. Previous appendiceal resection site and all possible lymph nodes are submitted. Plate Straightener sections are submitted in 38 cassettes as follows: 1-terminal ileal margin of resection; 2-distal mucosal margin of resection; 3-mesenteric margin of resection; 3-3-bklmwdhm appendiceal resection site staple line; 9-uninvolved terminal ileum; 10-uninvolved right colon; 11-one lymph node; 12-18-two whole possible lymph nodes each, 19-20- pericolonic adipose tissue near previous appendiceal resection site, 76-vdzb-cxmkauyfvd adipose tissue, 23-28- multiple possible lymph nodes, 32-34- multiple possible lymph nodes, 35-38- additional jean-intestinal adipose tissue. 07/26/2019 [facility]07/26/2019
== END 2019-07-29 13:43 | disposition home or self-care (01) | DRG 331 ==
LOC: JSAMEDAYSX 07:39 → J5S 09:28 → J6S 07-25 14:29
PROVIDERS: ADMIT Surgery; ATTEND Surgery
PROC: 0DBF4ZZ Excision of Right Large Intestine, Percutaneous Endoscopic Approach (ICD-10-PCS; principal; 2019-07-25 08:00)
DX: C18.1 Malignant neoplasm of appendix (principal); I10 Essential (primary) hypertension
CPT/HCPCS: 36415; 74018-TC-FY; 74019-TC-FY; 80048; 83735; 84100; 85025; 85027; 88307-TC; 88341-TC; 93005; 93010; 94010; 94760; G0008; J0131; Q2036

== ENCOUNTER 2020-07-08 16:25 | Emergency (ER) | payer BC, OTHER ==
[2020-07-08 16:35] VITALS: BMI 39.0
[2020-07-08] MEDS ORDERED: ACETAMINOPHEN 325 MG TABLET (FP) PO ONE (16:42)
[2020-07-08] MEDS ORDERED: ACETAMINOPHEN 325 MG TABLET (FP) ONE (16:45)
[2020-07-08] MEDS ORDERED: LIDOCAINE HCL 1%, 10 MG/ML (50 mL VIAL) SQ ONE (17:02)
[2020-07-08] MEDS ORDERED: LIDOCAINE HCL 1%, 10 MG/ML (20ML VIAL) ONE (17:06)
[2020-07-08] MEDS ORDERED: SODIUM CHLORIDE 0.9% 500 ML INFUS.BAG IV ONE (17:43)
[2020-07-08] MEDS ORDERED: DALBAVANCIN HCL 1,500 MG in DEXTROSE 5%-WATER - 500 ML IVPB ONE (17:43)
[2020-07-08] MEDS ORDERED: DALBAVANCIN HCL 500 MG VIAL (RESTRICTED TO ID ONLY) IVPB ONE (17:46)
[2020-07-08 18:06] VITALS: BP 130/86; PULSE 101; TEMP 99.8
[2020-07-08 18:50] LABS: ALBUMIN 4.7 g/dl (3.4-5.0); BILIRUBIN,TOTAL 1.1 mg/dl (0.2-1); CALCIUM 9.3 mg/dl (8.5-10); CREATININE 1.2 mg/dl (0.55-1.3); POTASSIUM 4.1 mmol/L (3.5-5.1)
== END 2020-07-08 19:02 | disposition home or self-care (01) ==
LOC: FER 16:25
DX: L03.011 Cellulitis of right finger (principal)
CPT/HCPCS: 36415; 73130-TC-RT-FY; 73140-TC-RT-FY; 80053; 87070; 87077; 87205; 99285-25; J0875

== ENCOUNTER 2020-07-09 15:19 | Emergency (ER) | payer BC ==
[2020-07-09 15:28] VITALS: BP 151/99; PULSE 99; TEMP 99.9; BMI 39.0
== END 2020-07-09 16:57 | disposition home or self-care (01) ==
LOC: FER 15:19
DX: L03.011 Cellulitis of right finger (principal)
CPT/HCPCS: 99283-25

== ENCOUNTER 2021-09-25 16:43 | Observation (INO) | payer BC ==
[2021-09-25] MEDS ORDERED: LACTATED RINGERS SOLUTION 1000 ML INFUS.BAG IV ONE (17:15)
[2021-09-25] MEDS ORDERED: ACETAMINOPHEN 1000 MG/100 ML BAG IVPB ONE (17:15)
[2021-09-25] MEDS ORDERED: ONDANSETRON 4 MG/2 ML VIAL IVPUSH ONE (17:15)
[2021-09-25] MEDS ORDERED: ONDANSETRON 4 MG/2 ML VIAL ONE (17:29)
[2021-09-25] MEDS ORDERED: ACETAMINOPHEN INJECTION 100 ML IVPB ONE (17:30)
[2021-09-25 17:52] LABS: HEMATOCRIT 39.7 % (35.4-49); HEMOGLOBIN 14.2 G/dL (11.7-16.9); MCH 30.6 pg (25.7-33.7); MCHC 35.8 g/dl (32.0-35.9); MEAN CELL VOLUME 85.6 fl (80-96); MEAN PLT VOLUME 7.3 fl (7.5-11.1); PLATELET COUNT 298.7 10^3/uL (134-434); RBC 4.64 10^6/uL (4.00-5.60); RDW 14.2 % (11.9-15.9); WHITE BLOOD COUNT 6.3 10^3/uL (4.0-10.8)
[2021-09-25 18:08] LABS: ALBUMIN 4.4 g/dl (3.4-5.0); BILIRUBIN,TOTAL 1.3 mg/dl (0.2-1); CALCIUM 9.2 mg/dl (8.5-10); TOT PROT 7.3 g/dl (6.4-8.2)
[2021-09-25 18:24] LABS: PLATELET ESTIMATE ADEQUATE
[2021-09-25] MEDS ORDERED: LACTATED RINGERS SOLUTION 1,000 ML/1,000 ML INFUS.BAG IV STA (20:03)
[2021-09-25] MEDS ORDERED: ACETAMINOPHEN 1000 MG/100 ML BAG IVPB PRN (20:49)
[2021-09-25] MEDS: HEPARIN NA (PORCINE) 5,000 UNITS/ML 1ML VIAL SQ SCH (23:43)
[2021-09-25] MEDS: DEXTROSE 5%-NORMAL SALINE 1,000 ML IV SCH (23:54)
[2021-09-26] MEDS: HEPARIN NA (PORCINE) 5,000 UNITS/ML 1ML VIAL SQ SCH ×2 (07:00→15:27)
[2021-09-26 08:13] LABS: HEMATOCRIT 37.2 % (35.4-49); HEMOGLOBIN 12.9 G/dL (11.7-16.9); MCHC 34.6 g/dl (32.0-35.9); MEAN CELL VOLUME 86.6 fl (80-96); MEAN PLT VOLUME 7.5 fl (7.5-11.1); PLATELET COUNT 254.7 10^3/uL (134-434); RBC 4.29 10^6/uL (4.00-5.60); RDW 14.4 % (11.9-15.9); WHITE BLOOD COUNT 4.6 10^3/uL (4.0-10.8)
[2021-09-26 08:21] LABS: INR 1.29 (0.83-1.09); PROTHROMBIN TIME (PATIENT) 14.9 SEC (9.7-13.0)
[2021-09-26 08:24] LABS: ACTIVATED PTT 30.9 SECONDS (25.2-36.5)
[2021-09-26 08:52] LABS: CALCIUM 8.8 mg/dl (8.5-10); CREATININE 1.8 mg/dl (0.55-1.3); MAGNESIUM 2.2 mg/dL (1.8-2.4)
[2021-09-26] MEDS ORDERED: HYDROCHLOROTHIAZIDE 25 MG TABLET (FP) PO SCH (10:00)
[2021-09-26] MEDS: DEXTROSE 5%-NORMAL SALINE 1,000 ML IV SCH (11:21)
[2021-09-26 13:31] LABS: PLATELET ESTIMATE ADEQUATE
[2021-09-26 14:33] VITALS: BP 139/72; PULSE 58; TEMP 98.1
[2021-09-26 14:53] VITALS: BMI 40.5
[2021-09-26] MEDS ORDERED: ROSUVASTATIN CA 20 MG TABLET PO SCH (22:00)
[2021-09-26] MEDS ORDERED: ACETAMINOPHEN 325 MG TABLET (FP) PO PRN ×2 (22:00)
== END 2021-09-26 15:40 | disposition home or self-care (01) ==
LOC: FER 16:43 → INTOOBSV 20:44 → FM/S 20:44
PROVIDERS: ADMIT Hospitalist; ATTEND Nurse Practitioner Family
PROC: 3E0337Z Introduction of Electrolytic and Water Balance Substance into Peripheral Vein, Percutaneous Approach (ICD-10-PCS; principal; 2021-09-25)
PROC: 3E033NZ Introduction of Analgesics, Hypnotics, Sedatives into Peripheral Vein, Percutaneous Approach (ICD-10-PCS; 2021-09-25)
PROC: 3E023GC Introduction of Other Therapeutic Substance into Muscle, Percutaneous Approach (ICD-10-PCS; 2021-09-25)
PROC: 3E033GC Introduction of Other Therapeutic Substance into Peripheral Vein, Percutaneous Approach (ICD-10-PCS; 2021-09-25)
DX: N17.9 Acute kidney failure, unspecified (principal); N13.30 Unspecified hydronephrosis; I10 Essential (primary) hypertension; E78.00 Pure hypercholesterolemia, unspecified; D35.00 Benign neoplasm of unspecified adrenal gland; I31.3 Pericardial effusion (noninflammatory); R79.89 Other specified abnormal findings of blood chemistry; Z85.038 Personal history of other malignant neoplasm of large intestine; Z29.8 Encounter for other specified prophylactic measures; Z68.41 Body mass index [BMI] 40.0-44.9, adult; E66.01 Morbid (severe) obesity due to excess calories; Z90.49 Acquired absence of other specified parts of digestive tract
CPT/HCPCS: 36415; 71046-TC-FY; 74176-TC; 80048; 80053; 83690; 83735; 85025; 85610; 85730; 93005; 99285-25; C9803-CS; G0378; J1644; U0003; U0005

== ENCOUNTER 2021-10-14 22:12 | Inpatient (IN) | payer BC ==
[2021-10-15] MEDS ORDERED: ACETAMINOPHEN 1000 MG/100 ML BAG IVPB ONE (00:42)
[2021-10-15] MEDS ORDERED: FAMOTIDINE 20 MG/50 ML IVPB 20 MG/50 ML MG IVPB ONE (00:42)
[2021-10-15] MEDS ORDERED: LACTATED RINGERS SOLUTION 1,000 ML IV STA (00:42)
[2021-10-15] MEDS ORDERED: ONDANSETRON 4 MG/2 ML VIAL IVPUSH ONE (00:43)
[2021-10-15] MEDS ORDERED: ONDANSETRON 4 MG/2 ML VIAL ONE (01:28)
[2021-10-15] MEDS ORDERED: ACETAMINOPHEN INJECTION 100 ML IVPB ONE (01:28)
[2021-10-15] MEDS ORDERED: FAMOTIDINE 10 MG/ML VIAL IVPB ONE (01:29)
[2021-10-15 01:35] LABS: BASO % 0.4 % (0-2.0); EOS % 1.9 % (0-4.5); HEMATOCRIT 46.9 % (35.4-49); HEMOGLOBIN 16.2 GM/dL (11.7-16.9); LYMPH % 14.3 % (8-40); MCH 29.6 pg (25.7-33.7); MCHC 34.5 g/dl (32.0-35.9); MEAN CELL VOLUME 85.8 fl (80-96); MEAN PLT VOLUME 7.7 fl (7.5-11.1); MONO % 9.3 % (3.8-10.2); NEUT % 74.1 % (42.8-82.8); PLATELET COUNT 308 10^3/uL (134-434); RBC 5.47 M/mm3 (4.00-5.60); RDW 13.9 % (11.9-15.9); WHITE BLOOD COUNT 8.3 K/mm3 (4.0-10.0)
[2021-10-15 01:56] LABS: ALBUMIN 4.3 g/dl (3.4-5.0); BLOOD UREA NITROGEN 55.1 mg/dL (7-18); CALCIUM 9.9 mg/dL (8.5-10.1); MAGNESIUM 2.7 mg/dL (1.8-2.4)
[2021-10-15 01:59] LABS: CREATININE 3.2 mg/dL (0.55-1.3); PHOSPHOROUS 5.7 mg/dL (2.5-4.9)
[2021-10-15 02:01] LABS: BILIRUBIN,TOTAL 2.2 mg/dL (0.2-1); TOT PROT 7.6 g/dl (6.4-8.2)
[2021-10-15] MEDS ORDERED: LACTATED RINGERS SOLUTION 1000 ML INFUS.BAG IV ONE (03:05)
[2021-10-15 04:40] LABS: EPI CELLS 11 /uL (0-25.1); HYALINE CASTS 13 /uL (0-3.1); URINE APPEARANCE CLEAR; URINE BACTERIA 6 /uL (0-1359); URINE BILIRUBIN 2+ (NEGATIVE); URINE COLOR DK YELLOW; URINE GLUCOSE (UA) NEGATIVE (NEGATIVE); URINE KETONE 1+ (NEGATIVE); URINE LEUK ESTERASE NEGATIVE (NEGATIVE); URINE NITRITE NEGATIVE (NEGATIVE); URINE PROTEIN 1+ (NEGATIVE); URINE RBC 5 /uL (0-23.9); URINE WBC 12 /uL (0-25.8)
[2021-10-15] MEDS: LACTATED RINGERS SOLUTION 1,000 ML/1,000 ML INFUS.BAG IV SCH ×4 (06:47→18:21)
[2021-10-15] MEDS ORDERED: ONDANSETRON 4 MG/2 ML VIAL IVPB PRN (10:29)
[2021-10-15] MEDS ORDERED: BENZOCAINE/MENTH/CETYLPYRD CL 1 EACH LOZENGE MM PRN (18:01)
[2021-10-16 08:27] LABS: ALBUMIN 3.6 g/dl (3.4-5.0); BLOOD UREA NITROGEN 40.5 mg/dL (7-18); CALCIUM 8.7 mg/dL (8.5-10.1)
[2021-10-16 08:30] LABS: CREATININE 1.9 mg/dL (0.55-1.3)
[2021-10-16 08:32] LABS: BILIRUBIN,TOTAL 1.9 mg/dL (0.2-1); TOT PROT 6.2 g/dl (6.4-8.2)
[2021-10-16] MEDS: LISINOPRIL 5 MG TABLET PO SCH (09:03)
[2021-10-16] MEDS ORDERED: predniSONE 20 MG TABLET (UD) PO SCH (10:00)
[2021-10-16] MEDS: PANTOPRAZOLE SODIUM 40 MG VIAL IVPUSH SCH (10:52)
[2021-10-16] MEDS: PHENOL 177 ML SPRAY BOTTLE MM SCH ×3 (11:30→17:23)
[2021-10-16] MEDS ORDERED: METOPROLOL TARTRATE 5 MG/5 ML VIAL IVPB PRN (14:04)
[2021-10-16 15:13] VITALS: BMI 35.1
[2021-10-16] MEDS: POTASSIUM CHLORIDE 20 MEQ in AMINO ACIDS 4.25%/D5W 1,000 ML IV SCH (15:48)
[2021-10-17] MEDS: PHENOL 177 ML SPRAY BOTTLE MM SCH ×4 (00:10→17:56)
[2021-10-17] MEDS: POTASSIUM CHLORIDE 20 MEQ in AMINO ACIDS 4.25%/D5W 1,000 ML IV SCH ×2 (07:18→14:03)
[2021-10-17 08:13] LABS: BASO % 0.5 % (0-2.0); EOS % 0.9 % (0-4.5); HEMATOCRIT 43.3 % (35.4-49); HEMOGLOBIN 14.6 GM/dL (11.7-16.9); LYMPH % 11.8 % (8-40); MCH 29.4 pg (25.7-33.7); MCHC 33.7 g/dl (32.0-35.9); MEAN CELL VOLUME 87.5 fl (80-96); MEAN PLT VOLUME 8.4 fl (7.5-11.1); MONO % 9.4 % (3.8-10.2); NEUT % 77.4 % (42.8-82.8); PLATELET COUNT 203 10^3/uL (134-434); RBC 4.95 M/mm3 (4.00-5.60); RDW 14.1 % (11.9-15.9); WHITE BLOOD COUNT 9.8 K/mm3 (4.0-10.0)
[2021-10-17 08:42] LABS: CALCIUM 9.2 mg/dL (8.5-10.1)
[2021-10-17 08:43] LABS: ALBUMIN 3.6 g/dl (3.4-5.0); BLOOD UREA NITROGEN 31.4 mg/dL (7-18)
[2021-10-17 08:45] LABS: BILIRUBIN,TOTAL 1.5 mg/dL (0.2-1); TOT PROT 6.7 g/dl (6.4-8.2)
[2021-10-17 08:46] LABS: CREATININE 1.6 mg/dL (0.55-1.3)
[2021-10-17] MEDS: LISINOPRIL 5 MG TABLET PO SCH (10:37)
[2021-10-17] MEDS: PANTOPRAZOLE SODIUM 40 MG VIAL IVPUSH SCH (10:37)
[2021-10-17] MEDS: KCL 10 MEQ IVPB 10 MEQ/100 ML INFUS.BAG IVPB SCH ×3 (19:18→21:45)
[2021-10-17] MEDS ORDERED: ACETAMINOPHEN 1000 MG/100 ML BAG IVPB PRN (23:48)
[2021-10-18] MEDS: PHENOL 177 ML SPRAY BOTTLE MM SCH ×4 (00:59→17:24)
[2021-10-18] MEDS: POTASSIUM CHLORIDE 20 MEQ in AMINO ACIDS 4.25%/D5W 1,000 ML IV SCH ×2 (02:56→17:23)
[2021-10-18 09:12] LABS: BASO % 0.3 % (0-2.0); HEMATOCRIT 41.8 % (35.4-49); HEMOGLOBIN 14.4 GM/dL (11.7-16.9); LYMPH % 10.9 % (8-40); MCH 29.8 pg (25.7-33.7); MCHC 34.6 g/dl (32.0-35.9); MEAN CELL VOLUME 86.1 fl (80-96); MEAN PLT VOLUME 8.1 fl (7.5-11.1); MONO % 9.8 % (3.8-10.2); PLATELET COUNT 202 10^3/uL (134-434); RBC 4.85 M/mm3 (4.00-5.60); RDW 14.2 % (11.9-15.9); WHITE BLOOD COUNT 10.4 K/mm3 (4.0-10.0)
[2021-10-18 09:25] LABS: CALCIUM 9.2 mg/dL (8.5-10.1)
[2021-10-18 09:26] LABS: ALBUMIN 3.4 g/dl (3.4-5.0); BLOOD UREA NITROGEN 27.9 mg/dL (7-18)
[2021-10-18 09:29] LABS: CREATININE 1.6 mg/dL (0.55-1.3)
[2021-10-18 09:30] LABS: BILIRUBIN,TOTAL 1.2 mg/dL (0.2-1); TOT PROT 6.6 g/dl (6.4-8.2)
[2021-10-18] MEDS: PANTOPRAZOLE SODIUM 40 MG VIAL IVPUSH SCH (10:42)
[2021-10-19] MEDS: PHENOL 177 ML SPRAY BOTTLE MM SCH ×3 (00:21→14:24)
[2021-10-19] MEDS: POTASSIUM CHLORIDE 20 MEQ in AMINO ACIDS 4.25%/D5W 1,000 ML IV SCH (06:35)
[2021-10-19] MEDS: PANTOPRAZOLE SODIUM 40 MG VIAL IVPUSH SCH (10:29)
[2021-10-19 12:31] LABS: BLOOD UREA NITROGEN 30.4 mg/dL (7-18); CALCIUM 9.4 mg/dL (8.5-10.1); MAGNESIUM 2.5 mg/dL (1.8-2.4)
[2021-10-19 12:33] LABS: PHOSPHOROUS 2.7 mg/dL (2.5-4.9)
[2021-10-19 12:35] LABS: CREATININE 1.6 mg/dL (0.55-1.3)
[2021-10-19] MEDS ORDERED: FENTANYL CITRATE/PF 50 MCG/ML VIAL ONE ×7 (17:49→20:43)
[2021-10-19] MEDS ORDERED: BUPIVACAINE HCL/PF 0.25% (2.5MG/ML) 10 ML VIAL ONE (17:50)
[2021-10-19] MEDS ORDERED: MIDAZOLAM HCL 2 MG/2 ML SINGLE DOSE VIAL ONE (17:51)
[2021-10-19] MEDS ORDERED: DEXMEDETOMIDINE HCL 200 MCG/2 ML IVPB ONE (17:54)
[2021-10-19] MEDS ORDERED: ACETAMINOPHEN INJECTION 100 ML IVPB ONE (17:54)
[2021-10-19] MEDS ORDERED: cefOXitin SODIUM 2 GM VIAL (RESTRICTED TO ID) IVPB ONE ×2 (18:25)
[2021-10-19] MEDS ORDERED: ROCURONIUM BROMIDE 50 MG/5 ML SYRINGE ONE (18:27)
[2021-10-19] MEDS ORDERED: BUPIVACAINE HCL/PF 0.25% (2.5MG/ML) 10 ML VIAL IJ ONE (18:29)
[2021-10-19] MEDS ORDERED: NEOSTIGMINE METHYLSULFATE 0.5 MG/1 ML - 10 ML MDV ONE (18:50)
[2021-10-19] MEDS ORDERED: HYDROmorphone HCl 2 MG/ML VIAL ONE (19:51)
[2021-10-19] MEDS ORDERED: METOPROLOL TARTRATE 5 MG/5 ML VIAL IVPB PRN (20:28)
[2021-10-19] MEDS ORDERED: BENZOCAINE/MENTH/CETYLPYRD CL 1 EACH LOZENGE MM PRN (20:28)
[2021-10-19] MEDS ORDERED: ACETAMINOPHEN 1000 MG/100 ML BAG IVPB PRN (20:28)
[2021-10-19] MEDS ORDERED: HYDROmorphone HCL CARPU-JECT 2 MG/1 ML DISP.SYRIN IVPUSH ONE (20:31)
[2021-10-19] MEDS ORDERED: SCOPOLAMINE HYDROBROMIDE 1 PATCH PATCH.TD72 ONE (20:32)
[2021-10-19] MEDS ORDERED: HYDROmorphone *PCA* 10MG/50ML DISP.SYRIN ONE (21:18)
[2021-10-19] MEDS: LACTATED RINGERS SOLUTION 1,000 ML IV SCH (22:05)
[2021-10-19] MEDS: SCOPOLAMINE HYDROBROMIDE 1 PATCH PATCH.TD72 TD SCH (22:05)
[2021-10-19] MEDS: HYDROmorphone *PCA* 10MG/50ML DISP.SYRIN PCA SCH (22:06)
[2021-10-20] MEDS: PHENOL 177 ML SPRAY BOTTLE MM SCH ×5 (00:30→17:31)
[2021-10-20] MEDS ORDERED: POTASSIUM CHLORIDE 20 MEQ in AMINO ACIDS 4.25%/D5W 1,000 ML IV SCH (02:15)
[2021-10-20] MEDS ORDERED: KETOROLAC TROMETHAMINE 30 MG/1 ML VIAL IVPUSH PRN (08:46)
[2021-10-20] MEDS: GABAPENTIN 300 MG CAPSULE PO SCH ×2 (10:40→21:31)
[2021-10-20] MEDS: ENOXAPARIN NA (PORCINE) 40 MG/0.4 ML DISP.SYRIN SQ SCH (10:40)
[2021-10-20] MEDS: PANTOPRAZOLE SODIUM 40 MG VIAL IVPUSH SCH (10:40)
[2021-10-20] MEDS: POTASSIUM CHLORIDE 20 MEQ in AMINO ACIDS 4.25%/D5W 1,000 ML IV SCH (12:56)
[2021-10-20] MEDS: LACTATED RINGERS SOLUTION 1,000 ML IV SCH (21:30)
[2021-10-20] MEDS: HYDROmorphone *PCA* 10MG/50ML DISP.SYRIN PCA SCH (21:36)
[2021-10-21] MEDS: PHENOL 177 ML SPRAY BOTTLE MM SCH ×4 (00:06→19:11)
[2021-10-21] MEDS: ONDANSETRON 4 MG/2 ML VIAL IVPB PRN ×2 (00:06→14:35)
[2021-10-21] MEDS: LACTATED RINGERS SOLUTION 1,000 ML IV SCH (06:18)
[2021-10-21 08:59] LABS: HEMATOCRIT 43.1 % (35.4-49); HEMOGLOBIN 14.6 GM/dL (11.7-16.9); MCH 29.6 pg (25.7-33.7); MCHC 33.8 g/dl (32.0-35.9); MEAN CELL VOLUME 87.5 fl (80-96); PLATELET COUNT 293 10^3/uL (134-434); RBC 4.92 M/mm3 (4.00-5.60); RDW 14.1 % (11.9-15.9); WHITE BLOOD COUNT 3.9 K/mm3 (4.0-10.0)
[2021-10-21 09:00] LABS: BASO % 0.5 % (0-2.0); EOS % 2.3 % (0-4.5); LYMPH % 19.2 % (8-40); MEAN PLT VOLUME 8.5 fl (7.5-11.1); MONO % 16.6 % (3.8-10.2); NEUT % 61.4 % (42.8-82.8)
[2021-10-21 09:56] LABS: ALBUMIN 3.2 g/dl (3.4-5.0); CALCIUM 9.2 mg/dL (8.5-10.1)
[2021-10-21 09:57] LABS: BLOOD UREA NITROGEN 35.6 mg/dL (7-18); MAGNESIUM 2.4 mg/dL (1.8-2.4)
[2021-10-21 09:59] LABS: BILIRUBIN,TOTAL 2.4 mg/dL (0.2-1); CREATININE 1.9 mg/dL (0.55-1.3)
[2021-10-21 10:00] LABS: TOT PROT 6.8 g/dl (6.4-8.2)
[2021-10-21] MEDS: PANTOPRAZOLE SODIUM 40 MG VIAL IVPUSH SCH (11:13)
[2021-10-21] MEDS: GABAPENTIN 300 MG CAPSULE PO SCH ×2 (11:13→22:25)
[2021-10-21] MEDS: ENOXAPARIN NA (PORCINE) 40 MG/0.4 ML DISP.SYRIN SQ SCH (11:14)
[2021-10-21] MEDS ORDERED: SODIUM CHLORIDE 1,000 ML IV STA (15:56)
[2021-10-21] MEDS ORDERED: DEXTROSE 5%-0.45% SALINE 1,000 ML IV SCH (16:00)
[2021-10-21] MEDS: DEXTROSE 5%-0.45% SALINE 1,000 ML IV SCH (19:12)
[2021-10-21] MEDS: HYDROmorphone *PCA* 10MG/50ML DISP.SYRIN PCA SCH (22:19)
[2021-10-22] MEDS: PHENOL 177 ML SPRAY BOTTLE MM SCH ×4 (00:07→17:09)
[2021-10-22] MEDS: DEXTROSE 5%-0.45% SALINE 1,000 ML IV SCH ×2 (02:31→09:22)
[2021-10-22] MEDS: ONDANSETRON 4 MG/2 ML VIAL IVPB PRN ×2 (07:30→14:08)
[2021-10-22] MEDS: ENOXAPARIN NA (PORCINE) 40 MG/0.4 ML DISP.SYRIN SQ SCH (09:19)
[2021-10-22] MEDS: PANTOPRAZOLE SODIUM 40 MG VIAL IVPUSH SCH (09:20)
[2021-10-22] MEDS: GABAPENTIN 300 MG CAPSULE PO SCH ×2 (09:20→22:37)
[2021-10-22 09:26] LABS: BASO % 0.9 % (0-2.0); EOS % 2.6 % (0-4.5); HEMATOCRIT 37.7 % (35.4-49); HEMOGLOBIN 13.1 GM/dL (11.7-16.9); LYMPH % 10.2 % (8-40); MCH 30.2 pg (25.7-33.7); MCHC 34.8 g/dl (32.0-35.9); MEAN PLT VOLUME 8.4 fl (7.5-11.1); MONO % 21.4 % (3.8-10.2); NEUT % 64.9 % (42.8-82.8); PLATELET COUNT 236 10^3/uL (134-434); RBC 4.34 M/mm3 (4.00-5.60); RDW 14.1 % (11.9-15.9); WHITE BLOOD COUNT 3.7 K/mm3 (4.0-10.0)
[2021-10-22 09:58] LABS: CALCIUM 8.6 mg/dL (8.5-10.1)
[2021-10-22 09:59] LABS: ALBUMIN 2.8 g/dl (3.4-5.0); BLOOD UREA NITROGEN 35.1 mg/dL (7-18)
[2021-10-22 10:02] LABS: CREATININE 1.9 mg/dL (0.55-1.3)
[2021-10-22 10:03] LABS: TOT PROT 5.9 g/dl (6.4-8.2)
[2021-10-22 10:04] LABS: BILIRUBIN,TOTAL 1.4 mg/dL (0.2-1)
[2021-10-22 10:34] LABS: ANISOCYTOSIS 1+; MACROCYTOSIS 0
[2021-10-22] MEDS: DEXTROSE 5%-NORMAL SALINE 1,000 ML IV SCH (15:26)
[2021-10-22] MEDS: SCOPOLAMINE HYDROBROMIDE 1 PATCH PATCH.TD72 TD SCH (22:37)
[2021-10-22] MEDS: POLYETHYLENE GLYCOL (HEALTHYLAX) 3350 17 GM PACKET PO SCH (22:37)
[2021-10-23] MEDS: PHENOL 177 ML SPRAY BOTTLE MM SCH ×3 (00:20→12:41)
[2021-10-23] MEDS: DEXTROSE 5%-NORMAL SALINE 1,000 ML IV SCH ×3 (03:15→21:40)
[2021-10-23] MEDS: ONDANSETRON 4 MG/2 ML VIAL IVPB PRN ×2 (03:15→12:47)
[2021-10-23 09:16] LABS: ALBUMIN 2.6 g/dl (3.4-5.0); CALCIUM 8.6 mg/dL (8.5-10.1)
[2021-10-23 09:17] LABS: BLOOD UREA NITROGEN 28.9 mg/dL (7-18)
[2021-10-23 09:20] LABS: CREATININE 1.8 mg/dL (0.55-1.3)
[2021-10-23] MEDS: GABAPENTIN 300 MG CAPSULE PO SCH ×2 (09:20→21:38)
[2021-10-23] MEDS: POLYETHYLENE GLYCOL (HEALTHYLAX) 3350 17 GM PACKET PO SCH ×2 (09:20→21:39)
[2021-10-23] MEDS: PANTOPRAZOLE SODIUM 40 MG VIAL IVPUSH SCH (09:20)
[2021-10-23] MEDS: ENOXAPARIN NA (PORCINE) 40 MG/0.4 ML DISP.SYRIN SQ SCH (09:20)
[2021-10-23 09:21] LABS: BILIRUBIN,TOTAL 0.8 mg/dL (0.2-1); TOT PROT 5.9 g/dl (6.4-8.2)
[2021-10-23 17:35] LABS: EPI CELLS 10 /uL (0-25.1); HYALINE CASTS 4 /uL (0-3.1); URINE APPEARANCE CLEAR; URINE BACTERIA 0 /uL (0-1359); URINE BILIRUBIN NEGATIVE (NEGATIVE); URINE COLOR YELLOW; URINE GLUCOSE (UA) NEGATIVE (NEGATIVE); URINE KETONE TRACE (NEGATIVE); URINE LEUK ESTERASE NEGATIVE (NEGATIVE); URINE NITRITE NEGATIVE (NEGATIVE); URINE PROTEIN 2+ (NEGATIVE); URINE RBC 13 /uL (0-23.9); URINE UROBILINOGEN 0.2 mg/dL (0.2-1.0); URINE WBC 20 /uL (0-25.8)
[2021-10-23 19:14] LABS: YEAST NONE SEEN (NEGATIVE)
[2021-10-24 08:52] LABS: BASO % 0.5 % (0-2.0); EOS % 2.7 % (0-4.5); HEMATOCRIT 35.9 % (35.4-49); HEMOGLOBIN 12.4 GM/dL (11.7-16.9); LYMPH % 14.6 % (8-40); MCHC 34.4 g/dl (32.0-35.9); MEAN CELL VOLUME 87.1 fl (80-96); MEAN PLT VOLUME 7.6 fl (7.5-11.1); MONO % 16.8 % (3.8-10.2); NEUT % 65.4 % (42.8-82.8); PLATELET COUNT 235 10^3/uL (134-434); RBC 4.13 M/mm3 (4.00-5.60); WHITE BLOOD COUNT 3.7 K/mm3 (4.0-10.0)
[2021-10-24 09:21] LABS: ALBUMIN 2.4 g/dl (3.4-5.0); BLOOD UREA NITROGEN 21.4 mg/dL (7-18); CALCIUM 8.4 mg/dL (8.5-10.1)
[2021-10-24 09:24] LABS: CREATININE 1.4 mg/dL (0.55-1.3)
[2021-10-24 09:25] LABS: BILIRUBIN,TOTAL 0.6 mg/dL (0.2-1); TOT PROT 5.4 g/dl (6.4-8.2)
[2021-10-24] MEDS: PANTOPRAZOLE SODIUM 40 MG VIAL IVPUSH SCH (10:37)
[2021-10-24] MEDS: GABAPENTIN 300 MG CAPSULE PO SCH ×2 (10:37→21:57)
[2021-10-24] MEDS: ENOXAPARIN NA (PORCINE) 40 MG/0.4 ML DISP.SYRIN SQ SCH (10:37)
[2021-10-24] MEDS: ONDANSETRON 4 MG/2 ML VIAL IVPB PRN ×2 (10:43→18:11)
[2021-10-24] MEDS: POLYETHYLENE GLYCOL (HEALTHYLAX) 3350 17 GM PACKET PO SCH ×2 (10:48→22:00)
[2021-10-24] MEDS: DEXTROSE 5%-NORMAL SALINE 1,000 ML IV SCH ×2 (18:11→21:59)
[2021-10-25] MEDS: DEXTROSE 5%-NORMAL SALINE 1,000 ML IV SCH ×3 (06:52→18:02)
[2021-10-25] MEDS: GABAPENTIN 300 MG CAPSULE PO SCH ×2 (08:59→22:16)
[2021-10-25] MEDS: PANTOPRAZOLE SODIUM 40 MG VIAL IVPUSH SCH (08:59)
[2021-10-25] MEDS: ENOXAPARIN NA (PORCINE) 40 MG/0.4 ML DISP.SYRIN SQ SCH (09:00)
[2021-10-25] MEDS: POLYETHYLENE GLYCOL (HEALTHYLAX) 3350 17 GM PACKET PO SCH ×2 (09:00→22:20)
[2021-10-25] MEDS: SCOPOLAMINE HYDROBROMIDE 1 PATCH PATCH.TD72 TD SCH (22:16)
[2021-10-26] MEDS: DEXTROSE 5%-NORMAL SALINE 1,000 ML IV SCH (02:00)
[2021-10-26 08:50] LABS: BASO % 0.4 % (0-2.0); EOS % 1.6 % (0-4.5); LYMPH % 14.3 % (8-40); MCH 29.9 pg (25.7-33.7); MCHC 34.2 g/dl (32.0-35.9); MEAN CELL VOLUME 87.4 fl (80-96); MEAN PLT VOLUME 7.7 fl (7.5-11.1); MONO % 10.9 % (3.8-10.2); NEUT % 72.8 % (42.8-82.8); PLATELET COUNT 296 10^3/uL (134-434); RDW 14.1 % (11.9-15.9); WHITE BLOOD COUNT 5.1 K/mm3 (4.0-10.0)
[2021-10-26 09:02] LABS: CALCIUM 8.3 mg/dL (8.5-10.1)
[2021-10-26 09:03] LABS: ALBUMIN 2.3 g/dl (3.4-5.0); BLOOD UREA NITROGEN 17.5 mg/dL (7-18)
[2021-10-26 09:06] LABS: CREATININE 1.4 mg/dL (0.55-1.3)
[2021-10-26 09:08] LABS: BILIRUBIN,TOTAL 0.6 mg/dL (0.2-1); TOT PROT 5.4 g/dl (6.4-8.2)
[2021-10-26] MEDS: PANTOPRAZOLE SODIUM 40 MG VIAL IVPUSH SCH (09:32)
[2021-10-26] MEDS: ENOXAPARIN NA (PORCINE) 40 MG/0.4 ML DISP.SYRIN SQ SCH (09:32)
[2021-10-26] MEDS: POLYETHYLENE GLYCOL (HEALTHYLAX) 3350 17 GM PACKET PO SCH ×2 (09:32→21:57)
[2021-10-26] MEDS: GABAPENTIN 300 MG CAPSULE PO SCH ×2 (09:32→21:57)
[2021-10-26] MEDS: D5-1/2NS+10 MEQ KCL - 10 MEQ/1,000 ML INFUS.BAG IV SCH (12:45)
[2021-10-26] MEDS: ONDANSETRON 4 MG/2 ML VIAL IVPB PRN (17:50)
[2021-10-27] MEDS: D5-1/2NS+10 MEQ KCL - 10 MEQ/1,000 ML INFUS.BAG IV SCH (02:18)
[2021-10-27] MEDS: PANTOPRAZOLE SODIUM 40 MG VIAL IVPUSH SCH (10:08)
[2021-10-27] MEDS: GABAPENTIN 300 MG CAPSULE PO SCH ×2 (10:08→21:51)
[2021-10-27] MEDS: POLYETHYLENE GLYCOL (HEALTHYLAX) 3350 17 GM PACKET PO SCH ×2 (10:08→21:51)
[2021-10-27] MEDS ORDERED: METOCLOPRAMIDE HCL INJECTION 10 MG/2 ML VIAL IVPUSH PRN (10:20)
[2021-10-28] MEDS: D5-1/2NS+10 MEQ KCL - 10 MEQ/1,000 ML INFUS.BAG IV SCH ×2 (02:24→03:04)
[2021-10-28 09:07] LABS: BASO % 0.3 % (0-2.0); EOS % 1.3 % (0-4.5); HEMATOCRIT 34.9 % (35.4-49); HEMOGLOBIN 12.1 GM/dL (11.7-16.9); LYMPH % 11.3 % (8-40); MCH 30.2 pg (25.7-33.7); MCHC 34.6 g/dl (32.0-35.9); MEAN CELL VOLUME 87.3 fl (80-96); MEAN PLT VOLUME 7.3 fl (7.5-11.1); MONO % 7.1 % (3.8-10.2); PLATELET COUNT 279 10^3/uL (134-434); RDW 13.9 % (11.9-15.9)
[2021-10-28] MEDS: GABAPENTIN 300 MG CAPSULE PO SCH ×2 (09:56→22:43)
[2021-10-28] MEDS: POLYETHYLENE GLYCOL (HEALTHYLAX) 3350 17 GM PACKET PO SCH ×3 (09:56→22:43)
[2021-10-28] MEDS: PANTOPRAZOLE SODIUM 40 MG VIAL IVPUSH SCH (10:14)
[2021-10-28 10:35] LABS: BLOOD UREA NITROGEN 14.7 mg/dL (7-18)
[2021-10-28 10:36] LABS: CREATININE 1.3 mg/dL (0.55-1.3)
[2021-10-28 10:40] LABS: CALCIUM 8.4 mg/dL (8.5-10.1)
[2021-10-28] MEDS ORDERED: POTASSIUM CHLORIDE 20 MEQ in AMINO ACIDS 4.25%/D5W 1,000 ML IV SCH (16:15)
[2021-10-28] MEDS: SCOPOLAMINE HYDROBROMIDE 1 PATCH PATCH.TD72 TD SCH (22:43)
[2021-10-29 09:09] LABS: BASO % 0.3 % (0-2.0); EOS % 1.1 % (0-4.5); HEMATOCRIT 34.4 % (35.4-49); HEMOGLOBIN 12.2 GM/dL (11.7-16.9); LYMPH % 10.5 % (8-40); MCH 30.8 pg (25.7-33.7); MCHC 35.5 g/dl (32.0-35.9); MEAN PLT VOLUME 7.1 fl (7.5-11.1); MONO % 7.7 % (3.8-10.2); NEUT % 80.4 % (42.8-82.8); PLATELET COUNT 307 10^3/uL (134-434); RBC 3.96 M/mm3 (4.00-5.60); RDW 13.8 % (11.9-15.9)
[2021-10-29 09:27] LABS: WHITE BLOOD COUNT 6.1 K/mm3 (4.0-10.0)
[2021-10-29 09:28] LABS: CALCIUM 8.1 mg/dL (8.5-10.1)
[2021-10-29 09:29] LABS: BLOOD UREA NITROGEN 14.2 mg/dL (7-18)
[2021-10-29 09:32] LABS: CREATININE 1.2 mg/dL (0.55-1.3)
[2021-10-29] MEDS: GABAPENTIN 300 MG CAPSULE PO SCH ×2 (10:14→23:27)
[2021-10-29] MEDS: PANTOPRAZOLE SODIUM 40 MG VIAL IVPUSH SCH (10:14)
[2021-10-29] MEDS: POLYETHYLENE GLYCOL (HEALTHYLAX) 3350 17 GM PACKET PO SCH ×2 (10:15→23:27)
[2021-10-29] MEDS: ONDANSETRON 4 MG/2 ML VIAL IVPB PRN (10:18)
[2021-10-29 16:00] LABS: MAGNESIUM 1.9 mg/dL (1.8-2.4)
[2021-10-29] MEDS ORDERED: POTASSIUM CHLORIDE IV SCH (16:00)
[2021-10-29] MEDS ORDERED: MULTIVIT IV SCH (16:00)
[2021-10-29] MEDS ORDERED: [UNRECOGNIZED DRUG - OTHER] IV SCH (16:00)
[2021-10-29] MEDS ORDERED: THIAMINE HCL IV SCH (16:00)
[2021-10-29 16:03] LABS: PHOSPHOROUS 3.4 mg/dL (2.5-4.9)
[2021-10-29] MEDS ORDERED: ACETAMINOPHEN 500 MG TABLET (FP) PO PRN (16:21)
[2021-10-30 09:26] LABS: BASO % 0.6 % (0-2.0); EOS % 1.1 % (0-4.5); HEMATOCRIT 37.1 % (35.4-49); HEMOGLOBIN 12.7 GM/dL (11.7-16.9); LYMPH % 16.1 % (8-40); MCH 29.8 pg (25.7-33.7); MCHC 34.1 g/dl (32.0-35.9); MEAN CELL VOLUME 87.5 fl (80-96); MEAN PLT VOLUME 7.1 fl (7.5-11.1); NEUT % 75.2 % (42.8-82.8); PLATELET COUNT 353 10^3/uL (134-434); RBC 4.25 M/mm3 (4.00-5.60); RDW 13.9 % (11.9-15.9); WHITE BLOOD COUNT 6.2 K/mm3 (4.0-10.0)
[2021-10-30 09:52] LABS: BLOOD UREA NITROGEN 17.2 mg/dL (7-18); CALCIUM 8.6 mg/dL (8.5-10.1)
[2021-10-30 09:56] LABS: CREATININE 1.3 mg/dL (0.55-1.3)
[2021-10-30] MEDS: GABAPENTIN 300 MG CAPSULE PO SCH ×2 (10:42→22:40)
[2021-10-30] MEDS: POLYETHYLENE GLYCOL (HEALTHYLAX) 3350 17 GM PACKET PO SCH ×2 (10:43→22:40)
[2021-10-30] MEDS: PANTOPRAZOLE SODIUM 40 MG VIAL IVPUSH SCH (10:43)
[2021-10-30] MEDS: THIAMINE HCL IV SCH (17:49)
[2021-10-30] MEDS: [UNRECOGNIZED DRUG - OTHER] IV SCH (17:49)
[2021-10-30] MEDS: POTASSIUM CHLORIDE IV SCH (17:49)
[2021-10-30] MEDS: MULTIVIT IV SCH (17:49)
[2021-10-30] MEDS: FAT EMULSION/OLIVE/SOY/PHOSPHO 250 ML IV SCH (22:40)
[2021-10-31 08:36] LABS: BASO % 0.4 % (0-2.0); EOS % 1.6 % (0-4.5); HEMATOCRIT 37.1 % (35.4-49); HEMOGLOBIN 12.7 GM/dL (11.7-16.9); MCH 29.8 pg (25.7-33.7); MCHC 34.2 g/dl (32.0-35.9); MEAN CELL VOLUME 87.2 fl (80-96); MONO % 6.8 % (3.8-10.2); NEUT % 76.2 % (42.8-82.8); PLATELET COUNT 347 10^3/uL (134-434); RBC 4.26 M/mm3 (4.00-5.60); RDW 13.7 % (11.9-15.9); WHITE BLOOD COUNT 5.4 K/mm3 (4.0-10.0)
[2021-10-31 08:45] LABS: CALCIUM 8.1 mg/dL (8.5-10.1)
[2021-10-31 08:47] LABS: ALBUMIN 2.5 g/dl (3.4-5.0); BLOOD UREA NITROGEN 17.2 mg/dL (7-18)
[2021-10-31 08:49] LABS: CREATININE 1.2 mg/dL (0.55-1.3); PHOSPHOROUS 3.4 mg/dL (2.5-4.9)
[2021-10-31 08:51] LABS: BILIRUBIN,TOTAL 0.6 mg/dL (0.2-1); TOT PROT 5.6 g/dl (6.4-8.2)
[2021-10-31] MEDS: PANTOPRAZOLE SODIUM 40 MG VIAL IVPUSH SCH (10:28)
[2021-10-31] MEDS: POLYETHYLENE GLYCOL (HEALTHYLAX) 3350 17 GM PACKET PO SCH ×2 (10:28→21:42)
[2021-10-31] MEDS: GABAPENTIN 300 MG CAPSULE PO SCH ×2 (10:28→21:42)
[2021-10-31] MEDS: MULTIVIT IV SCH (20:44)
[2021-10-31] MEDS: THIAMINE HCL IV SCH (20:44)
[2021-10-31] MEDS: POTASSIUM CHLORIDE IV SCH (20:44)
[2021-10-31] MEDS: [UNRECOGNIZED DRUG - OTHER] IV SCH (20:44)
[2021-10-31] MEDS: FAT EMULSION/OLIVE/SOY/PHOSPHO 250 ML IV SCH (21:42)
[2021-10-31] MEDS: SCOPOLAMINE HYDROBROMIDE 1 PATCH PATCH.TD72 TD SCH (21:42)
[2021-11-01 10:00] LABS: BLOOD UREA NITROGEN 17.9 mg/dL (7-18)
[2021-11-01 10:03] LABS: ALBUMIN 2.5 g/dl (3.4-5.0); CALCIUM 8.1 mg/dL (8.5-10.1); MAGNESIUM 1.8 mg/dL (1.8-2.4)
[2021-11-01 10:06] LABS: CREATININE 1.2 mg/dL (0.55-1.3); PHOSPHOROUS 3.6 mg/dL (2.5-4.9)
[2021-11-01 10:07] LABS: BILIRUBIN,TOTAL 0.4 mg/dL (0.2-1); TOT PROT 5.4 g/dl (6.4-8.2)
[2021-11-01] MEDS: GABAPENTIN 300 MG CAPSULE PO SCH ×2 (10:30→21:55)
[2021-11-01] MEDS: PANTOPRAZOLE SODIUM 40 MG VIAL IVPUSH SCH (10:30)
[2021-11-01] MEDS: POLYETHYLENE GLYCOL (HEALTHYLAX) 3350 17 GM PACKET PO SCH ×2 (10:30→21:55)
[2021-11-01] MEDS: [UNRECOGNIZED DRUG - OTHER] IV SCH (16:15)
[2021-11-01] MEDS: MULTIVIT IV SCH (16:15)
[2021-11-01] MEDS: POTASSIUM CHLORIDE IV SCH (16:15)
[2021-11-01] MEDS: THIAMINE HCL IV SCH (16:15)
[2021-11-01] MEDS: FAT EMULSION/OLIVE/SOY/PHOSPHO 250 ML IV SCH (21:55)
[2021-11-02] MEDS: GABAPENTIN 300 MG CAPSULE PO SCH ×2 (09:15→21:28)
[2021-11-02] MEDS: POLYETHYLENE GLYCOL (HEALTHYLAX) 3350 17 GM PACKET PO SCH ×2 (09:15→21:29)
[2021-11-02] MEDS: PANTOPRAZOLE SODIUM 40 MG VIAL IVPUSH SCH (09:15)
[2021-11-02 09:59] LABS: ALBUMIN 2.5 g/dl (3.4-5.0)
[2021-11-02 10:00] LABS: BLOOD UREA NITROGEN 19.7 mg/dL (7-18); CALCIUM 8.2 mg/dL (8.5-10.1); MAGNESIUM 1.9 mg/dL (1.8-2.4)
[2021-11-02 10:01] LABS: CREATININE 1.2 mg/dL (0.55-1.3); PHOSPHOROUS 3.7 mg/dL (2.5-4.9)
[2021-11-02 10:02] LABS: BILIRUBIN,TOTAL 0.6 mg/dL (0.2-1)
[2021-11-02 10:03] LABS: TOT PROT 5.4 g/dl (6.4-8.2)
[2021-11-02] MEDS: AMINO ACID IV SCH (16:17)
[2021-11-02] MEDS: MULTIVIT IV SCH (16:17)
[2021-11-02] MEDS: [UNRECOGNIZED DRUG - OTHER] IV SCH (16:17)
[2021-11-02] MEDS: POTASSIUM CHLORIDE IV SCH (16:17)
[2021-11-02] MEDS: FAT EMULSION/OLIVE/SOY/PHOSPHO 250 ML IV SCH (22:45)
[2021-11-03] MEDS: PANTOPRAZOLE SODIUM 40 MG VIAL IVPUSH SCH (09:05)
[2021-11-03] MEDS: GABAPENTIN 300 MG CAPSULE PO SCH ×2 (09:05→21:02)
[2021-11-03] MEDS: POLYETHYLENE GLYCOL (HEALTHYLAX) 3350 17 GM PACKET PO SCH ×2 (09:05→21:02)
[2021-11-03 09:15] LABS: ALBUMIN 2.8 g/dl (3.4-5.0); BLOOD UREA NITROGEN 21.4 mg/dL (7-18); CALCIUM 8.6 mg/dL (8.5-10.1)
[2021-11-03 09:18] LABS: CREATININE 1.4 mg/dL (0.55-1.3); PHOSPHOROUS 3.4 mg/dL (2.5-4.9)
[2021-11-03 09:20] LABS: BILIRUBIN,TOTAL 0.5 mg/dL (0.2-1)
[2021-11-03] MEDS: SCOPOLAMINE HYDROBROMIDE 1 PATCH PATCH.TD72 TD SCH (21:02)
[2021-11-03] MEDS: AMINO ACID IV SCH (21:07)
[2021-11-03] MEDS: MULTIVIT IV SCH (21:07)
[2021-11-03] MEDS: POTASSIUM CHLORIDE IV SCH (21:07)
[2021-11-03] MEDS: [UNRECOGNIZED DRUG - OTHER] IV SCH (21:07)
[2021-11-03] MEDS: FAT EMULSION/OLIVE/SOY/PHOSPHO 250 ML IV SCH (21:08)
[2021-11-04 09:53] LABS: ALBUMIN 3.1 g/dl (3.4-5.0); BLOOD UREA NITROGEN 25.2 mg/dL (7-18); CALCIUM 8.9 mg/dL (8.5-10.1)
[2021-11-04 09:54] LABS: CREATININE 1.3 mg/dL (0.55-1.3)
[2021-11-04 09:55] LABS: TOT PROT 6.5 g/dl (6.4-8.2)
[2021-11-04 09:56] LABS: BILIRUBIN,DIRECT 0.2 mg/dL (0.0-0.2); PHOSPHOROUS 3.2 mg/dL (2.5-4.9)
[2021-11-04 09:58] LABS: BILIRUBIN,TOTAL 0.6 mg/dL (0.2-1)
[2021-11-04] MEDS: ONDANSETRON 4 MG/2 ML VIAL IVPB PRN (10:05)
[2021-11-04] MEDS: PANTOPRAZOLE SODIUM 40 MG VIAL IVPUSH SCH (10:06)
[2021-11-04] MEDS: POLYETHYLENE GLYCOL (HEALTHYLAX) 3350 17 GM PACKET PO SCH ×2 (10:06→22:42)
[2021-11-04] MEDS: GABAPENTIN 300 MG CAPSULE PO SCH ×2 (10:06→22:42)
[2021-11-04] MEDS: MULTIVIT IV SCH (16:00)
[2021-11-04] MEDS: [UNRECOGNIZED DRUG - OTHER] IV SCH (16:00)
[2021-11-04] MEDS: POTASSIUM CHLORIDE IV SCH (16:00)
[2021-11-04] MEDS: AMINO ACID IV SCH (16:00)
[2021-11-04] MEDS: FAT EMULSION/OLIVE/SOY/PHOSPHO 250 ML IV SCH (22:38)
[2021-11-05] MEDS: ONDANSETRON 4 MG/2 ML VIAL IVPB PRN (06:11)
[2021-11-05 10:02] LABS: BLOOD UREA NITROGEN 25.6 mg/dL (7-18); CALCIUM 8.6 mg/dL (8.5-10.1)
[2021-11-05 10:05] LABS: CREATININE 1.2 mg/dL (0.55-1.3); PHOSPHOROUS 3.4 mg/dL (2.5-4.9)
[2021-11-05] MEDS: POLYETHYLENE GLYCOL (HEALTHYLAX) 3350 17 GM PACKET PO SCH ×2 (11:20→22:17)
[2021-11-05] MEDS: GABAPENTIN 300 MG CAPSULE PO SCH ×2 (11:20→22:17)
[2021-11-05] MEDS: PANTOPRAZOLE SODIUM 40 MG VIAL IVPUSH SCH (13:47)
[2021-11-05] MEDS: MULTIVIT IV SCH (22:17)
[2021-11-05] MEDS: [UNRECOGNIZED DRUG - OTHER] IV SCH (22:17)
[2021-11-05] MEDS: AMINO ACID IV SCH (22:17)
[2021-11-05] MEDS: FAT EMULSION/OLIVE/SOY/PHOSPHO 250 ML IV SCH (22:17)
[2021-11-05] MEDS: POTASSIUM CHLORIDE IV SCH (22:17)
[2021-11-06] MEDS: AMINO ACID IV SCH (04:08)
[2021-11-06] MEDS: MULTIVIT IV SCH (04:08)
[2021-11-06] MEDS: [UNRECOGNIZED DRUG - OTHER] IV SCH (04:08)
[2021-11-06] MEDS: POTASSIUM CHLORIDE IV SCH (04:08)
[2021-11-06 05:48] VITALS: BP 126/81; PULSE 82; TEMP 98.6
[2021-11-06] MEDS: GABAPENTIN 300 MG CAPSULE PO SCH (10:27)
[2021-11-06] MEDS: PANTOPRAZOLE SODIUM 40 MG VIAL IVPUSH SCH (10:27)
[2021-11-06] MEDS: POLYETHYLENE GLYCOL (HEALTHYLAX) 3350 17 GM PACKET PO SCH (10:29)
== END 2021-11-06 18:39 | disposition home or self-care (01) | DRG 327 ==
LOC: JER 22:12 → JERBED 10-15 04:49 → J7W 10-15 09:27
PROVIDERS: ADMIT Family Medicine; ATTEND Family Medicine
PROC: 0D9670Z Drainage of Stomach with Drainage Device, Via Natural or Artificial Opening (ICD-10-PCS; principal; 2021-10-15)
PROC: 0D160ZA Bypass Stomach to Jejunum, Open Approach (ICD-10-PCS; 2021-10-15)
PROC: 02HV33Z Insertion of Infusion Device into Superior Vena Cava, Percutaneous Approach (ICD-10-PCS; 2021-10-15)
PROC: B518ZZA Fluoroscopy of Superior Vena Cava, Guidance (ICD-10-PCS; 2021-10-15)
DX: K31.1 Adult hypertrophic pyloric stenosis (principal); C18.1 Malignant neoplasm of appendix; N17.9 Acute kidney failure, unspecified; K62.5 Hemorrhage of anus and rectum; C78.6 Secondary malignant neoplasm of retroperitoneum and peritoneum; N13.39 Other hydronephrosis; E46 Unspecified protein-calorie malnutrition; I10 Essential (primary) hypertension; E78.5 Hyperlipidemia, unspecified; N28.89 Other specified disorders of kidney and ureter; D35.00 Benign neoplasm of unspecified adrenal gland; K64.8 Other hemorrhoids; R11.10 Vomiting, unspecified; R00.0 Tachycardia, unspecified; K31.89 Other diseases of stomach and duodenum; Z53.31 Laparoscopic surgical procedure converted to open procedure; R59.0 Localized enlarged lymph nodes; Z68.36 Body mass index [BMI] 36.0-36.9, adult
CPT/HCPCS: 0241U-QW; 36415; 36569; 71046-TC-FY; 74018-TC-FY; 74019-TC-FY; 74160-TC; 74176-TC; 74240-TC-FY; 74246-TC-FY; 76775-TC; 77001-TC-FY; 80048; 80053; 80076; 81003; 82746; 83605; 83690; 83735; 84100; 84478; 84630; 85025; 86850; 86900; 86901; 93005; 93010; 94760; 97116-GP; 97161-GP; 99285-25; C1751; Q9967

== ENCOUNTER 2021-12-15 15:29 | Inpatient (IN) | payer BC ==
[2021-12-15 15:50] VITALS: BMI 37.8
[2021-12-15 17:44] LABS: BASO % 0.3 % (0-2.0); EOS % 0.9 % (0-4.5); HEMATOCRIT 41.9 % (35.4-49); LYMPH % 15.1 % (8-40); MCH 29.5 pg (25.7-33.7); MCHC 33.3 g/dl (32.0-35.9); MEAN CELL VOLUME 88.7 fl (80-96); MEAN PLT VOLUME 7.5 fl (7.5-11.1); MONO % 9.6 % (3.8-10.2); NEUT % 74.1 % (42.8-82.8); PLATELET COUNT 327 10^3/uL (134-434); RBC 4.73 M/mm3 (4.00-5.60); RDW 14.8 % (11.9-15.9); WHITE BLOOD COUNT 7.8 K/mm3 (4.0-10.0)
[2021-12-15 17:51] LABS: INR 1.13 (0.83-1.09)
[2021-12-15 17:54] LABS: ACTIVATED PTT 31.1 SECONDS (25.2-36.5)
[2021-12-15 18:06] LABS: CALCIUM 9.2 mg/dL (8.5-10.1)
[2021-12-15 18:07] LABS: ALBUMIN 3.2 g/dl (3.4-5.0); BLOOD UREA NITROGEN 18.8 mg/dL (7-18)
[2021-12-15 18:10] LABS: CREATININE 1.6 mg/dL (0.55-1.3)
[2021-12-15 18:11] LABS: BILIRUBIN,TOTAL 0.5 mg/dL (0.2-1)
[2021-12-15 18:12] LABS: TOT PROT 6.4 g/dl (6.4-8.2)
[2021-12-15] MEDS ORDERED: HEPARIN NA (PORCINE) 5,000 UNITS/ML 1ML VIAL IVPUSH PRN ×2 (22:25)
[2021-12-15] MEDS: HEPARIN - 25,000 UNIT in SODIUM CHLORIDE 495 ML IV SCH (23:01)
[2021-12-15] MEDS: HEPARIN NA (PORCINE) 5,000 UNITS/ML 1ML VIAL IVPUSH PRN (23:01)
[2021-12-15] MEDS ORDERED: HEPARIN INFUSION - 25,000 UNITS/500 ML INFUS.BAG IVPB ONE (23:03)
[2021-12-15] MEDS ORDERED: HEPARIN NA (PORCINE) 5,000 UNITS/ML 1ML VIAL ONE (23:03)
[2021-12-16 09:12] LABS: BASO % 0.5 % (0-2.0); EOS % 0.9 % (0-4.5); HEMATOCRIT 38.7 % (35.4-49); HEMOGLOBIN 13.3 GM/dL (11.7-16.9); LYMPH % 17.5 % (8-40); MCH 29.9 pg (25.7-33.7); MCHC 34.3 g/dl (32.0-35.9); MEAN CELL VOLUME 87.2 fl (80-96); MEAN PLT VOLUME 7.4 fl (7.5-11.1); MONO % 9.8 % (3.8-10.2); NEUT % 71.3 % (42.8-82.8); PLATELET COUNT 293 10^3/uL (134-434); RBC 4.44 M/mm3 (4.00-5.60); WHITE BLOOD COUNT 6.1 K/mm3 (4.0-10.0)
[2021-12-16 09:48] LABS: CREATININE 1.5 mg/dL (0.55-1.3)
[2021-12-16 09:49] LABS: TOT PROT 6.3 g/dl (6.4-8.2)
[2021-12-16 09:52] LABS: BILIRUBIN,TOTAL 0.6 mg/dL (0.2-1)
[2021-12-16 09:53] LABS: BLOOD UREA NITROGEN 16.5 mg/dL (7-18)
[2021-12-16] MEDS ORDERED: metoPROLOL SUCCINATE 25 MG TAB.SR.24H (FP) PO SCH (10:00)
[2021-12-16 13:08] LABS: N-TERMINAL BNP 241.8 pg/ml (5-125)
[2021-12-16] MEDS: ROSUVASTATIN CA 20 MG TABLET PO SCH (21:37)
[2021-12-16] MEDS: HEPARIN - 25,000 UNIT in SODIUM CHLORIDE 495 ML IV SCH (22:28)
[2021-12-17] MEDS: HEPARIN NA (PORCINE) 5,000 UNITS/ML 1ML VIAL IVPUSH PRN (03:02)
[2021-12-17 08:50] LABS: CALCIUM 8.5 mg/dL (8.5-10.1)
[2021-12-17 08:51] LABS: BLOOD UREA NITROGEN 14.3 mg/dL (7-18)
[2021-12-17 08:54] LABS: CREATININE 1.3 mg/dL (0.55-1.3)
[2021-12-17] MEDS: LISINOPRIL 5 MG TABLET PO SCH (09:32)
[2021-12-17] MEDS: PANTOPRAZOLE 40 MG TABLET PO SCH (09:32)
[2021-12-17 11:26] LABS: HEMATOCRIT 40.2 % (35.4-49); HEMOGLOBIN 13.6 GM/dL (11.7-16.9); MCH 29.8 pg (25.7-33.7); MCHC 33.9 g/dl (32.0-35.9); MEAN CELL VOLUME 87.7 fl (80-96); MEAN PLT VOLUME 8.1 fl (7.5-11.1); PLATELET COUNT 279 10^3/uL (134-434); RBC 4.58 M/mm3 (4.00-5.60); RDW 14.7 % (11.9-15.9); WHITE BLOOD COUNT 4.9 K/mm3 (4.0-10.0)
[2021-12-17] MEDS: HEPARIN - 25,000 UNIT in SODIUM CHLORIDE 495 ML IV SCH ×3 (11:41→22:00)
[2021-12-17] MEDS: ROSUVASTATIN CA 20 MG TABLET PO SCH (21:05)
[2021-12-18 08:41] LABS: BASO % 0.7 % (0-2.0); EOS % 1.4 % (0-4.5); HEMATOCRIT 38.7 % (35.4-49); HEMOGLOBIN 12.9 GM/dL (11.7-16.9); LYMPH % 19.5 % (8-40); MCH 29.4 pg (25.7-33.7); MCHC 33.4 g/dl (32.0-35.9); MEAN PLT VOLUME 8.3 fl (7.5-11.1); MONO % 10.8 % (3.8-10.2); NEUT % 67.6 % (42.8-82.8); PLATELET COUNT 277 10^3/uL (134-434); RDW 14.7 % (11.9-15.9); WHITE BLOOD COUNT 5.7 K/mm3 (4.0-10.0)
[2021-12-18 08:43] LABS: CALCIUM 9.1 mg/dL (8.5-10.1)
[2021-12-18 08:44] LABS: BLOOD UREA NITROGEN 18.7 mg/dL (7-18)
[2021-12-18 08:47] LABS: CREATININE 1.4 mg/dL (0.55-1.3)
[2021-12-18] MEDS: LISINOPRIL 5 MG TABLET PO SCH (09:54)
[2021-12-18] MEDS: PANTOPRAZOLE 40 MG TABLET PO SCH (09:54)
[2021-12-18] MEDS: HEPARIN NA (PORCINE) 5,000 UNITS/ML 1ML VIAL IVPUSH PRN (19:25)
[2021-12-18] MEDS: ROSUVASTATIN CA 20 MG TABLET PO SCH (21:00)
[2021-12-19] MEDS: HEPARIN - 25,000 UNIT in SODIUM CHLORIDE 495 ML IV SCH (00:05)
[2021-12-19 09:04] LABS: BLOOD UREA NITROGEN 19.9 mg/dL (7-18)
[2021-12-19 09:10] LABS: CREATININE 1.5 mg/dL (0.55-1.3)
[2021-12-19] MEDS: PANTOPRAZOLE 40 MG TABLET PO SCH (09:10)
[2021-12-19] MEDS: LISINOPRIL 5 MG TABLET PO SCH (09:10)
[2021-12-19] MEDS ORDERED: ONDANSETRON 4 MG/2 ML VIAL IVPUSH PRN (09:28)
[2021-12-19] MEDS ORDERED: SUCCINYLCHOLINE CHLORIDE 200 MG/10 ML SYRINGE ONE (09:30)
[2021-12-19] MEDS ORDERED: PROPOFOL 20 ML ONE ×2 (09:30)
[2021-12-19] MEDS ORDERED: MIDAZOLAM HCL 2 MG/2 ML SINGLE DOSE VIAL ONE (10:15)
[2021-12-19] MEDS ORDERED: ceFAZolin SODIUM 1 GM VIAL IVPB ONE (10:20)
[2021-12-19] MEDS ORDERED: LIDOCAINE HCL 2% JELLY 10 ML CARTRIDGE ONE (10:31)
[2021-12-19] MEDS ORDERED: LIDOCAINE HCL 2% JELLY 10 ML CARTRIDGE TP ONE (10:41)
[2021-12-19 13:59] LABS: BASO % 0.4 % (0-2.0); EOS % 0.6 % (0-4.5); HEMATOCRIT 36.6 % (35.4-49); HEMOGLOBIN 12.2 GM/dL (11.7-16.9); MCH 29.6 pg (25.7-33.7); MCHC 33.4 g/dl (32.0-35.9); MEAN CELL VOLUME 88.6 fl (80-96); MEAN PLT VOLUME 8.3 fl (7.5-11.1); MONO % 8.6 % (3.8-10.2); NEUT % 80.4 % (42.8-82.8); PLATELET COUNT 256 10^3/uL (134-434); RBC 4.13 M/mm3 (4.00-5.60); RDW 14.8 % (11.9-15.9)
[2021-12-19] MEDS: ROSUVASTATIN CA 20 MG TABLET PO SCH (22:21)
[2021-12-19] MEDS: RIVAROXABAN 20 MG TABLET PO SCH (22:22)
[2021-12-20 08:12] LABS: HEMATOCRIT 38.2 % (35.4-49); HEMOGLOBIN 12.9 GM/dL (11.7-16.9); MCH 29.9 pg (25.7-33.7); MCHC 33.7 g/dl (32.0-35.9); MEAN CELL VOLUME 88.6 fl (80-96); MEAN PLT VOLUME 8.2 fl (7.5-11.1); PLATELET COUNT 257 10^3/uL (134-434); RBC 4.31 M/mm3 (4.00-5.60); WHITE BLOOD COUNT 5.9 K/mm3 (4.0-10.0)
[2021-12-20] MEDS: TAMSULOSIN HCL 0.4 MG CAP PO SCH (08:15)
[2021-12-20] MEDS ORDERED: DEXTROSE 5%-WATER - 50 ML IVPB ONE (10:06)
[2021-12-20] MEDS ORDERED: cefTRIAXone SODIUM 1 GM VIAL ONE (10:06)
[2021-12-20] MEDS: CEFTRIAXONE 1 GM in DEXTROSE 5%-WATER - 50 ML IVPB SCH (10:14)
[2021-12-20] MEDS: RIVAROXABAN 20 MG TABLET PO SCH (10:15)
[2021-12-20] MEDS: LISINOPRIL 5 MG TABLET PO SCH (10:15)
[2021-12-20] MEDS: PANTOPRAZOLE 40 MG TABLET PO SCH (10:15)
[2021-12-20] MEDS: ROSUVASTATIN CA 20 MG TABLET PO SCH (21:12)
[2021-12-21] MEDS: ONDANSETRON 4 MG/2 ML VIAL IVPUSH PRN ×3 (03:48→21:36)
[2021-12-21] MEDS ORDERED: DEXTROSE 5%-WATER - 50 ML IVPB ONE (09:06)
[2021-12-21] MEDS ORDERED: cefTRIAXone SODIUM 1 GM VIAL ONE (09:06)
[2021-12-21] MEDS: TAMSULOSIN HCL 0.4 MG CAP PO SCH (09:20)
[2021-12-21] MEDS: PANTOPRAZOLE 40 MG TABLET PO SCH (09:42)
[2021-12-21] MEDS: CEFTRIAXONE 1 GM in DEXTROSE 5%-WATER - 50 ML IVPB SCH (09:42)
[2021-12-21] MEDS: LISINOPRIL 5 MG TABLET PO SCH (09:42)
[2021-12-21] MEDS ORDERED: FUROSEMIDE 20 MG TABLET (FP) PO ONE (10:30)
[2021-12-21] MEDS: SPIRONOLACTONE 25 MG TABLET PO SCH (10:45)
[2021-12-21] MEDS: ROSUVASTATIN CA 20 MG TABLET PO SCH (21:34)
[2021-12-22 07:58] LABS: BASO % 0.8 % (0-2.0); EOS % 2.9 % (0-4.5); HEMATOCRIT 35.3 % (35.4-49); MEAN CELL VOLUME 88.4 fl (80-96); MEAN PLT VOLUME 8.2 fl (7.5-11.1); MONO % 12.2 % (3.8-10.2); NEUT % 61.1 % (42.8-82.8); PLATELET COUNT 267 10^3/uL (134-434); RDW 14.8 % (11.9-15.9); WHITE BLOOD COUNT 4.5 K/mm3 (4.0-10.0)
[2021-12-22 08:26] LABS: CALCIUM 8.8 mg/dL (8.5-10.1)
[2021-12-22 08:27] LABS: ALBUMIN 2.9 g/dl (3.4-5.0); BLOOD UREA NITROGEN 28.9 mg/dL (7-18)
[2021-12-22 08:28] LABS: CREATININE 1.9 mg/dL (0.55-1.3)
[2021-12-22 08:30] LABS: BILIRUBIN,TOTAL 0.5 mg/dL (0.2-1)
[2021-12-22 08:31] LABS: TOT PROT 5.9 g/dl (6.4-8.2)
[2021-12-22] MEDS ORDERED: DEXTROSE 5%-WATER - 50 ML IVPB ONE (09:18)
[2021-12-22] MEDS ORDERED: cefTRIAXone SODIUM 1 GM VIAL ONE (09:18)
[2021-12-22] MEDS: CEFTRIAXONE 1 GM in DEXTROSE 5%-WATER - 50 ML IVPB SCH (09:21)
[2021-12-22] MEDS: LISINOPRIL 5 MG TABLET PO SCH (09:22)
[2021-12-22] MEDS: TAMSULOSIN HCL 0.4 MG CAP PO SCH (09:22)
[2021-12-22] MEDS: SPIRONOLACTONE 25 MG TABLET PO SCH (09:22)
[2021-12-22] MEDS: PANTOPRAZOLE 40 MG TABLET PO SCH (09:22)
[2021-12-22] MEDS ORDERED: MIDAZOLAM HCL 2 MG/2 ML SINGLE DOSE VIAL ONE (10:50)
[2021-12-22] MEDS ORDERED: ONDANSETRON 4 MG/2 ML VIAL IVPUSH ONE (11:05)
[2021-12-22] MEDS: MIDAZOLAM HCL 2 MG/2 ML SINGLE DOSE VIAL IVPB SCH ×2 (11:06→11:22)
[2021-12-22] MEDS: ROSUVASTATIN CA 20 MG TABLET PO SCH (21:52)
[2021-12-22 22:48] VITALS: RESP 18
[2021-12-23 08:16] LABS: ALBUMIN 2.8 g/dl (3.4-5.0); BLOOD UREA NITROGEN 30.4 mg/dL (7-18); CALCIUM 9.2 mg/dL (8.5-10.1)
[2021-12-23 08:19] LABS: CREATININE 1.9 mg/dL (0.55-1.3)
[2021-12-23 08:20] LABS: BILIRUBIN,TOTAL 0.5 mg/dL (0.2-1)
[2021-12-23] MEDS ORDERED: cefTRIAXone SODIUM 1 GM VIAL ONE (09:12)
[2021-12-23] MEDS ORDERED: DEXTROSE 5%-WATER - 50 ML IVPB ONE (09:13)
[2021-12-23] MEDS: TAMSULOSIN HCL 0.4 MG CAP PO SCH (09:24)
[2021-12-23] MEDS: PANTOPRAZOLE 40 MG TABLET PO SCH (09:24)
[2021-12-23] MEDS: SPIRONOLACTONE 25 MG TABLET PO SCH (09:24)
[2021-12-23] MEDS: CEFTRIAXONE 1 GM in DEXTROSE 5%-WATER - 50 ML IVPB SCH (09:26)
[2021-12-23 12:52] VITALS: BP 106/69; PULSE 114; TEMP 97.8
== END 2021-12-23 12:55 | disposition home or self-care (01) | DRG 988 ==
LOC: JER 15:29 → INTOOBSV 22:54 → JERBED 22:54 → UNDOADMOB 22:54 → JERBED 22:56 → J4S 12-16 02:54 → OBSVTOIN 12-16 13:47
PROVIDERS: ADMIT Family Medicine; ATTEND Family Medicine
PROC: 0TBB8ZX Excision of Bladder, Via Natural or Artificial Opening Endoscopic, Diagnostic (ICD-10-PCS; 2021-12-19)
PROC: 0T9780Z Drainage of Left Ureter with Drainage Device, Via Natural or Artificial Opening Endoscopic (ICD-10-PCS; principal; 2021-12-19 10:00)
PROC: 0JH63XZ Insertion of Tunneled Vascular Access Device into Chest Subcutaneous Tissue and Fascia, Percutaneous Approach (ICD-10-PCS; 2021-12-22)
PROC: 05HM33Z Insertion of Infusion Device into Right Internal Jugular Vein, Percutaneous Approach (ICD-10-PCS; 2021-12-22)
PROC: B513ZZA Fluoroscopy of Right Jugular Veins, Guidance (ICD-10-PCS; 2021-12-22)
DX: I82.621 Acute embolism and thrombosis of deep veins of right upper extremity (principal); N17.9 Acute kidney failure, unspecified; J90 Pleural effusion, not elsewhere classified; R18.8 Other ascites; N13.30 Unspecified hydronephrosis; C18.1 Malignant neoplasm of appendix; C79.51 Secondary malignant neoplasm of bone; C17.0 Malignant neoplasm of duodenum; E78.5 Hyperlipidemia, unspecified; R09.02 Hypoxemia; R59.0 Localized enlarged lymph nodes; D35.00 Benign neoplasm of unspecified adrenal gland; M54.50 Low back pain, unspecified; I12.9 Hypertensive chronic kidney disease with stage 1 through stage 4 chronic kidney disease, or unspecified chronic kidney disease; N18.9 Chronic kidney disease, unspecified; N32.9 Bladder disorder, unspecified
CPT/HCPCS: 0241U-QW; 36415; 36561; 71045-TC-FY; 71275-TC; 76000-TC-FY; 76700-TC; 80048; 80053; 83880; 84484; 85025; 85027; 85610; 85730; 86850; 86900; 86901; 88305-TC; 88341-TC; 93005; 93010; 94760; 99285-25; G0378; J1644; Q9967

== ENCOUNTER 2021-12-23 09:30 | Day surgery (SDC) | payer BC ==
[2021-12-23] MEDS ORDERED: SODIUM CHLORIDE 250 ML IV ONE (12:30)
[2021-12-23] MEDS ORDERED: ATROPINE SO4 0.4 MG/1 ML VIAL IVPUSH ONE (13:00)
[2021-12-23] MEDS ORDERED: DEXAMETHASONE SODIUM PHOSPHATE 10 MG in SODIUM CHLORIDE 50 ML IVPB ONE (13:00)
[2021-12-23] MEDS ORDERED: PALONOSETRON HCL 0.25 MG/5 ML VIAL IVPUSH ONE (13:00)
[2021-12-23] MEDS ORDERED: DEXTROSE 5% IVPB ONE ×2 (13:30)
[2021-12-23] MEDS ORDERED: WATER IVPB ONE ×2 (13:30)
[2021-12-23] MEDS ORDERED: LEUCOVORIN IVPB ONE (13:30)
[2021-12-23] MEDS ORDERED: IRINOTECAN HCL IVPB ONE (13:30)
[2021-12-23] MEDS ORDERED: FLUOROURACIL 2,500 MG/50 ML VIAL IVPUSH ONE (15:00)
[2021-12-23] MEDS ORDERED: SODIUM CHLORIDE IVPB ONE (15:15)
[2021-12-23] MEDS ORDERED: BEVACIZUMAB AWWB IVPB ONE (15:15)
[2021-12-23] MEDS ORDERED: SODIUM CHLORIDE CP ONE (16:45)
[2021-12-23] MEDS ORDERED: FLUOROURACIL CP ONE (16:45)
[2021-12-23 16:46] VITALS: RESP 16; TEMP 98.2
[2021-12-23 16:51] VITALS: BP 110/68; PULSE 98
== END 2021-12-23 17:34 | disposition home or self-care (01) ==
LOC: JONCCHEMO 09:30
PROVIDERS: ATTEND Internal Medicine Hematology & Oncology
DX: Z51.11 Encounter for antineoplastic chemotherapy (principal); C17.0 Malignant neoplasm of duodenum
CPT/HCPCS: 96375; 96411; 96413; 96417; G0498; J2469; J9206

== ENCOUNTER 2021-12-25 06:33 | Day surgery (SDC) | payer BC ==
[2021-12-25] MEDS ORDERED: MAGNESIUM SULFATE IN WATER 2 GM/50 ML IVPB IVPB ONE (10:00)
[2021-12-25] MEDS ORDERED: D5-1/2NS+40 MEQ KCL - 20 MEQ/500 ML INFUS.BAG IV ONE (10:00)
[2021-12-25] MEDS ORDERED: ONDANSETRON 4 MG/2 ML VIAL IVPB ONE (13:54)
[2021-12-25 14:07] LABS: BASO % 0.6 % (0-2.0); EOS % 1.6 % (0-4.5); HEMOGLOBIN 12.7 GM/dL (11.7-16.9); LYMPH % 14.5 % (8-40); MCH 29.4 pg (25.7-33.7); MCHC 33.4 g/dl (32.0-35.9); MEAN CELL VOLUME 87.8 fl (80-96); MEAN PLT VOLUME 8.1 fl (7.5-11.1); MONO % 6.9 % (3.8-10.2); NEUT % 76.4 % (42.8-82.8); PLATELET COUNT 371 10^3/uL (134-434); RBC 4.33 M/mm3 (4.00-5.60); RDW 14.7 % (11.9-15.9); WHITE BLOOD COUNT 8.1 K/mm3 (4.0-10.0)
[2021-12-25] MEDS ORDERED: MAGNESIUM 1GM/D5W - 1 GM/100 ML IVPB IVPB ONE (14:15)
[2021-12-25] MEDS ORDERED: APIXABAN 5 MG TABLET PO ONE (14:15)
[2021-12-25] MEDS ORDERED: PANTOPRAZOLE 40 MG TABLET PO SCH (14:30)
[2021-12-25 14:40] LABS: CALCIUM 9.3 mg/dL (8.5-10.1)
[2021-12-25 14:41] LABS: BLOOD UREA NITROGEN 33.1 mg/dL (7-18)
[2021-12-25 14:44] LABS: CREATININE 2.1 mg/dL (0.55-1.3)
[2021-12-25 14:46] LABS: BILIRUBIN,TOTAL 0.9 mg/dL (0.2-1); TOT PROT 6.4 g/dl (6.4-8.2)
[2021-12-25 17:38] VITALS: BP 141/90; PULSE 125; RESP 20; TEMP 98.2
[2021-12-25] MEDS ORDERED: PORTA CATH FLUSH 10 ML IVPUSH PRN (17:38)
[2021-12-25] MEDS ORDERED: APIXABAN 5 MG TABLET PO SCH (22:00)
[2021-12-26] MEDS ORDERED: PANTOPRAZOLE 40 MG TABLET PO SCH (10:00)
== END 2021-12-25 17:30 | disposition home or self-care (01) ==
LOC: JONCCHEMO 06:33
PROVIDERS: ATTEND Internal Medicine Hematology & Oncology
PROC: 3E043GC Introduction of Other Therapeutic Substance into Central Vein, Percutaneous Approach (ICD-10-PCS; principal; 2021-12-25)
DX: C18.1 Malignant neoplasm of appendix (principal); Z76.89 Persons encountering health services in other specified circumstances
CPT/HCPCS: 36415; 80053; 85025; 96365; 96375

== ENCOUNTER 2021-12-25 17:42 | Inpatient (IN) | payer BC ==
[2021-12-25] MEDS ORDERED: SODIUM CHLORIDE 0.9% 500 ML INFUS.BAG IV ONE (21:22)
[2021-12-25 21:46] LABS: EPI CELLS >36 /uL (0-25.1); HYALINE CASTS 3 /uL (0-3.1); PH,URINE 5.5 (5.0-8.0); URINE APPEARANCE TURBID; URINE BACTERIA 5 /uL (0-1359); URINE BILIRUBIN NEGATIVE (NEGATIVE); URINE COLOR ORANGE; URINE GLUCOSE (UA) NEGATIVE (NEGATIVE); URINE KETONE NEGATIVE (NEGATIVE); URINE LEUK ESTERASE TRACE (NEGATIVE); URINE NITRITE NEGATIVE (NEGATIVE); URINE PROTEIN 2+ (NEGATIVE); URINE RBC 6937 /uL (0-23.9); URINE WBC 53 /uL (0-25.8)
[2021-12-25] MEDS ORDERED: APIXABAN 5 MG TABLET PO ONE (22:00)
[2021-12-25 22:01] LABS: URINE CRYSTALS URIC ACID /hpf
[2021-12-26] MEDS ORDERED: APIXABAN 5 MG TABLET ONE (01:17)
[2021-12-26] MEDS ORDERED: ONDANSETRON 4 MG/2 ML VIAL IVPB PRN ×3 (07:33→10:55)
[2021-12-26] MEDS ORDERED: ONDANSETRON 4 MG/2 ML VIAL ONE (08:49)
[2021-12-26] MEDS: ROSUVASTATIN CA 20 MG TABLET PO SCH (10:19)
[2021-12-26] MEDS: APIXABAN 5 MG TABLET PO SCH ×2 (10:20→22:03)
[2021-12-26] MEDS ORDERED: ONDANSETRON *ODT* 4 MG TABLET SL PRN (10:20)
[2021-12-26] MEDS ORDERED: FUROSEMIDE 40 MG/4 ML INJECTABLE VIAL IVPUSH ONE ×3 (10:21→18:45)
[2021-12-26] MEDS ORDERED: PROCHLORPERAZINE INJECTION 10 MG/2 ML VIAL IVPB PRN (10:54)
[2021-12-26] MEDS ORDERED: DEXAMETHASONE SOD PHOSPHATE 10 MG/1 ML VIAL IVPB ONE (10:56)
[2021-12-26] MEDS: PANTOPRAZOLE SODIUM 40 MG VIAL IVPUSH SCH (11:03)
[2021-12-26] MEDS ORDERED: ACETAMINOPHEN 1000 MG/100 ML BAG IVPB PRN (13:44)
[2021-12-26] MEDS ORDERED: ACETAMINOPHEN 1000 MG/100 ML BAG IVPB ONE (13:45)
[2021-12-26] MEDS ORDERED: SODIUM CHLORIDE 1,000 ML IV SCH (14:00)
[2021-12-27 08:50] LABS: BASO % 0.8 % (0-2.0); EOS % 0.7 % (0-4.5); HEMATOCRIT 35.7 % (35.4-49); HEMOGLOBIN 12.3 GM/dL (11.7-16.9); LYMPH % 18.7 % (8-40); MCHC 34.5 g/dl (32.0-35.9); MEAN CELL VOLUME 87.1 fl (80-96); MEAN PLT VOLUME 8.1 fl (7.5-11.1); MONO % 2.2 % (3.8-10.2); NEUT % 77.6 % (42.8-82.8); PLATELET COUNT 276 10^3/uL (134-434); RDW 14.6 % (11.9-15.9); WHITE BLOOD COUNT 4.9 K/mm3 (4.0-10.0)
[2021-12-27 09:14] LABS: ALBUMIN 3.1 g/dl (3.4-5.0); BLOOD UREA NITROGEN 37.4 mg/dL (7-18); CALCIUM 8.9 mg/dL (8.5-10.1)
[2021-12-27 09:17] LABS: CREATININE 2.4 mg/dL (0.55-1.3)
[2021-12-27 09:19] LABS: BILIRUBIN,TOTAL 0.7 mg/dL (0.2-1); TOT PROT 6.4 g/dl (6.4-8.2)
[2021-12-27] MEDS: PANTOPRAZOLE SODIUM 40 MG VIAL IVPUSH SCH (09:19)
[2021-12-27] MEDS: APIXABAN 5 MG TABLET PO SCH ×2 (09:21→21:34)
[2021-12-27] MEDS: ROSUVASTATIN CA 20 MG TABLET PO SCH (09:22)
[2021-12-27] MEDS: FUROSEMIDE 40 MG/4 ML INJECTABLE VIAL IVPUSH SCH (12:28)
[2021-12-28 09:14] LABS: BLOOD UREA NITROGEN 39.5 mg/dL (7-18); CALCIUM 8.7 mg/dL (8.5-10.1)
[2021-12-28] MEDS: APIXABAN 5 MG TABLET PO SCH ×2 (10:10→21:21)
[2021-12-28] MEDS: FUROSEMIDE 40 MG/4 ML INJECTABLE VIAL IVPUSH SCH (10:10)
[2021-12-28] MEDS: PANTOPRAZOLE SODIUM 40 MG VIAL IVPUSH SCH (10:10)
[2021-12-28] MEDS: ROSUVASTATIN CA 20 MG TABLET PO SCH (10:10)
[2021-12-28] MEDS ORDERED: TRIMETHOBENZAMIDE HCL 200MG/2ML INJ IM PRN (14:27)
[2021-12-29 08:47] LABS: ALBUMIN 2.9 g/dl (3.4-5.0); CALCIUM 8.8 mg/dL (8.5-10.1)
[2021-12-29 08:48] LABS: BLOOD UREA NITROGEN 35.5 mg/dL (7-18)
[2021-12-29 08:50] LABS: CREATININE 1.8 mg/dL (0.55-1.3)
[2021-12-29 08:52] LABS: BILIRUBIN,TOTAL 0.6 mg/dL (0.2-1); TOT PROT 5.9 g/dl (6.4-8.2)
[2021-12-29] MEDS ORDERED: MINERAL OIL ENEMA 133 ML ENEMA RC ONE ×2 (09:40→10:00)
[2021-12-29] MEDS: APIXABAN 5 MG TABLET PO SCH ×2 (10:05→21:04)
[2021-12-29] MEDS: PANTOPRAZOLE SODIUM 40 MG VIAL IVPUSH SCH (10:05)
[2021-12-29] MEDS: FUROSEMIDE 40 MG/4 ML INJECTABLE VIAL IVPUSH SCH (10:06)
[2021-12-29] MEDS: ROSUVASTATIN CA 20 MG TABLET PO SCH (10:06)
[2021-12-29] MEDS: METOCLOPRAMIDE HCL INJECTION 10 MG/2 ML VIAL IVPB SCH ×2 (10:34→18:51)
[2021-12-29] MEDS: POLYETHYLENE GLYCOL (HEALTHYLAX) 3350 17 GM PACKET PO SCH ×2 (10:34→21:04)
[2021-12-29] MEDS ORDERED: ONDANSETRON 4 MG/2 ML VIAL IVPB SCH (12:00)
[2021-12-29] MEDS: ONDANSETRON 4 MG/2 ML VIAL IVPB SCH ×2 (12:33→16:48)
[2021-12-29] MEDS ORDERED: ACETAMINOPHEN 325 MG TABLET (FP) PO PRN (14:23)
[2021-12-30] MEDS: METOCLOPRAMIDE HCL INJECTION 10 MG/2 ML VIAL IVPB SCH ×3 (01:49→17:51)
[2021-12-30] MEDS: PANTOPRAZOLE SODIUM 40 MG VIAL IVPUSH SCH (10:59)
[2021-12-30] MEDS: POLYETHYLENE GLYCOL (HEALTHYLAX) 3350 17 GM PACKET PO SCH (11:00)
[2021-12-30] MEDS: FUROSEMIDE 40 MG/4 ML INJECTABLE VIAL IVPUSH SCH (11:00)
[2021-12-30] MEDS: ROSUVASTATIN CA 20 MG TABLET PO SCH (11:01)
[2021-12-30] MEDS: APIXABAN 5 MG TABLET PO SCH ×2 (11:01→21:43)
[2021-12-30 14:22] LABS: BASO % 0.7 % (0-2.0); EOS % 2.4 % (0-4.5); HEMATOCRIT 36.5 % (35.4-49); HEMOGLOBIN 12.6 GM/dL (11.7-16.9); LYMPH % 16.4 % (8-40); MCH 29.8 pg (25.7-33.7); MCHC 34.4 g/dl (32.0-35.9); MEAN CELL VOLUME 86.8 fl (80-96); NEUT % 77.5 % (42.8-82.8); PLATELET COUNT 285 10^3/uL (134-434); RBC 4.21 M/mm3 (4.00-5.60); RDW 14.1 % (11.9-15.9); WHITE BLOOD COUNT 4.6 K/mm3 (4.0-10.0)
[2021-12-30 14:25] LABS: CALCIUM 8.7 mg/dL (8.5-10.1)
[2021-12-30 14:26] LABS: BLOOD UREA NITROGEN 37.8 mg/dL (7-18)
[2021-12-30] MEDS ORDERED: SENNOSIDES 8.6MG TABLET (FP) PO PRN (20:34)
[2021-12-30] MEDS: DOCUSATE SODIUM 100 MG CAPSULE (FP) PO SCH (21:43)
[2021-12-31] MEDS: METOCLOPRAMIDE HCL INJECTION 10 MG/2 ML VIAL IVPB SCH (02:27)
[2021-12-31] MEDS: ONDANSETRON 4 MG/2 ML VIAL IVPB PRN ×2 (07:54→13:05)
[2021-12-31] MEDS: DOCUSATE SODIUM 100 MG CAPSULE (FP) PO SCH (11:36)
[2021-12-31] MEDS: APIXABAN 5 MG TABLET PO SCH (11:36)
[2021-12-31] MEDS: ROSUVASTATIN CA 20 MG TABLET PO SCH (11:36)
[2021-12-31 11:37] LABS: CALCIUM 8.6 mg/dL (8.5-10.1)
[2021-12-31 11:38] LABS: BLOOD UREA NITROGEN 36.9 mg/dL (7-18)
[2021-12-31 11:41] LABS: CREATININE 1.7 mg/dL (0.55-1.3)
[2021-12-31 11:53] VITALS: BMI 35.2
[2021-12-31 15:23] VITALS: BP 134/88; PULSE 96; RESP 20; TEMP 98.7
[2022-01-01] MEDS ORDERED: FUROSEMIDE 20 MG TABLET (FP) PO SCH (10:00)
== END 2021-12-31 19:08 | disposition home or self-care (01) | DRG 844 ==
LOC: JER 17:42 → JERBED 23:49 → J8W 12-26 09:24 → OBSVTOIN 12-27 17:40
PROVIDERS: ADMIT Internal Medicine; ATTEND Internal Medicine
DX: C79.89 Secondary malignant neoplasm of other specified sites (principal); R18.0 Malignant ascites; J90 Pleural effusion, not elsewhere classified; N17.9 Acute kidney failure, unspecified; J98.11 Atelectasis; I31.3 Pericardial effusion (noninflammatory); C25.7 Malignant neoplasm of other parts of pancreas; N43.2 Other hydrocele; E66.9 Obesity, unspecified; Z68.35 Body mass index [BMI] 35.0-35.9, adult; E78.5 Hyperlipidemia, unspecified; R11.2 Nausea with vomiting, unspecified; K56.41 Fecal impaction; N50.89 Other specified disorders of the male genital organs; I12.9 Hypertensive chronic kidney disease with stage 1 through stage 4 chronic kidney disease, or unspecified chronic kidney disease; N18.9 Chronic kidney disease, unspecified; D35.00 Benign neoplasm of unspecified adrenal gland
CPT/HCPCS: 0241U-QW; 36415; 71250-TC; 74019-TC-FY; 74220-TC-FY; 74240-TC-FY; 76775-TC; 76870-TC; 80048; 80053; 81003; 82570; 84300; 84484; 85025; 85379; 86038; 86160; 87086; 93005; 93010; 93306-TC; 93970-TC; 99285-25; G0378; J1100

== ENCOUNTER 2022-01-05 06:26 | Day surgery (SDC) | payer BC ==
[2022-01-05] MEDS ORDERED: SODIUM CHLORIDE 250 ML IV ONE (09:30)
[2022-01-05] MEDS ORDERED: ATROPINE SO4 0.4 MG/1 ML VIAL SQ ONE (10:00)
[2022-01-05] MEDS ORDERED: DEXAMETHASONE SODIUM PHOSPHATE 8 MG in SODIUM CHLORIDE 50 ML IVPB ONE (10:00)
[2022-01-05] MEDS ORDERED: DEXTROSE 5% IVPB ONE ×2 (10:30→11:00)
[2022-01-05] MEDS ORDERED: WATER IVPB ONE ×2 (10:30→11:00)
[2022-01-05] MEDS ORDERED: LEUCOVORIN IVPB ONE (10:30)
[2022-01-05 10:59] LABS: BASO % 0.6 % (0-2.0); EOS % 2.5 % (0-4.5); HEMATOCRIT 35.5 % (35.4-49); LYMPH % 25.2 % (8-40); MCH 29.4 pg (25.7-33.7); MCHC 33.8 g/dl (32.0-35.9); MEAN CELL VOLUME 87.1 fl (80-96); MEAN PLT VOLUME 7.7 fl (7.5-11.1); MONO % 10.8 % (3.8-10.2); NEUT % 60.9 % (42.8-82.8); PLATELET COUNT 319 10^3/uL (134-434); RBC 4.08 M/mm3 (4.00-5.60); RDW 14.2 % (11.9-15.9)
[2022-01-05] MEDS ORDERED: IRINOTECAN HCL IVPB ONE (11:00)
[2022-01-05 11:19] LABS: BLOOD UREA NITROGEN 22.6 mg/dL (7-18); CALCIUM 8.9 mg/dL (8.5-10.1); MAGNESIUM 1.9 mg/dL (1.8-2.4)
[2022-01-05 11:22] LABS: BILIRUBIN,DIRECT 0.2 mg/dL (0.0-0.2); CREATININE 1.8 mg/dL (0.55-1.3)
[2022-01-05 11:24] LABS: TOT PROT 6.1 g/dl (6.4-8.2)
[2022-01-05] MEDS: PALONOSETRON HCL 0.25 MG/5 ML VIAL IVPUSH ONE ×2 (11:59→12:05)
[2022-01-05] MEDS ORDERED: ONDANSETRON INJECTION 8 MG in SODIUM CHLORIDE 50 ML IVPB ONE (12:30)
[2022-01-05] MEDS ORDERED: FLUOROURACIL 2,500 MG/50 ML VIAL IVPUSH ONE (12:30)
[2022-01-05] MEDS ORDERED: SODIUM CHLORIDE CP ONE (12:45)
[2022-01-05] MEDS ORDERED: FLUOROURACIL CP ONE (12:45)
[2022-01-05 18:03] VITALS: RESP 20; TEMP 98.8
[2022-01-05 18:26] VITALS: BP 119/88; PULSE 91
== END 2022-01-05 16:00 | disposition home or self-care (01) ==
LOC: JONCCHEMO 06:26
PROVIDERS: ATTEND Internal Medicine Hematology & Oncology
DX: Z51.11 Encounter for antineoplastic chemotherapy (principal); C18.1 Malignant neoplasm of appendix
CPT/HCPCS: 36415; 80048; 80076; 83735; 84156; 85025; 96366; 96367; 96375; 96411; 96413; G0498; J2469; J9206

== ENCOUNTER 2022-01-07 06:59 | Day surgery (SDC) | payer BC ==
[2022-01-07] MEDS ORDERED: MAGNESIUM 1GM/D5W - 1 GM/100 ML IVPB IVPB ONE (10:00)
[2022-01-07] MEDS ORDERED: D5-1/2NS+40 MEQ KCL - 20 MEQ/500 ML INFUS.BAG IV ONE (10:00)
[2022-01-07 14:25] VITALS: TEMP 97.8
[2022-01-07] MEDS ORDERED: PORTA CATH FLUSH 10 ML IVPUSH PRN (16:15)
[2022-01-07 17:07] VITALS: BP 116/88; PULSE 94; RESP 18
== END 2022-01-07 14:30 | disposition home or self-care (01) ==
LOC: JONCCHEMO 06:59
PROVIDERS: ATTEND Internal Medicine Hematology & Oncology
PROC: 3E043GC Introduction of Other Therapeutic Substance into Central Vein, Percutaneous Approach (ICD-10-PCS; principal; 2022-01-07)
DX: C18.1 Malignant neoplasm of appendix (principal); Z76.89 Persons encountering health services in other specified circumstances
CPT/HCPCS: 96365

== ENCOUNTER 2022-01-19 08:15 | Day surgery (SDC) | payer BC ==
[2022-01-19] MEDS ORDERED: SODIUM CHLORIDE 250 ML IV ONE (09:30)
[2022-01-19] MEDS ORDERED: DEXAMETHASONE SODIUM PHOSPHATE 8 MG in SODIUM CHLORIDE 50 ML IVPB ONE (10:00)
[2022-01-19] MEDS ORDERED: ATROPINE SO4 0.4 MG/1 ML VIAL SQ ONE (10:00)
[2022-01-19] MEDS ORDERED: PALONOSETRON HCL 0.25 MG/5 ML VIAL IVPUSH ONE (10:00)
[2022-01-19] MEDS ORDERED: WATER IVPB ONE ×2 (10:30→11:00)
[2022-01-19] MEDS ORDERED: LEUCOVORIN IVPB ONE (10:30)
[2022-01-19] MEDS ORDERED: DEXTROSE 5% IVPB ONE ×2 (10:30→11:00)
[2022-01-19] MEDS ORDERED: IRINOTECAN HCL IVPB ONE (11:00)
[2022-01-19 12:11] VITALS: BP 131/72; PULSE 99; RESP 20; TEMP 98.3
[2022-01-19] MEDS ORDERED: FLUOROURACIL 2,500 MG/50 ML VIAL IVPUSH ONE (12:30)
[2022-01-19 12:58] LABS: BASO % 0.6 % (0-2.0); EOS % 1.4 % (0-4.5); HEMATOCRIT 34.3 % (35.4-49); HEMOGLOBIN 12.1 GM/dL (11.7-16.9); LYMPH % 31.5 % (8-40); MCH 30.9 pg (25.7-33.7); MCHC 35.2 g/dl (32.0-35.9); MEAN CELL VOLUME 87.8 fl (80-96); MEAN PLT VOLUME 6.9 fl (7.5-11.1); MONO % 18.5 % (3.8-10.2); PLATELET COUNT 391 10^3/uL (134-434); RDW 14.3 % (11.9-15.9); WHITE BLOOD COUNT 2.7 K/mm3 (4.0-10.0)
[2022-01-19] MEDS ORDERED: SODIUM CHLORIDE CP ONE (13:00)
[2022-01-19] MEDS ORDERED: FLUOROURACIL CP ONE (13:00)
[2022-01-19] MEDS ORDERED: TBO-FILGRASTIM 480 MCG/0.8 ML DISP.SYRIN SQ ONE (13:11)
[2022-01-19 13:14] LABS: CALCIUM 8.9 mg/dL (8.5-10.1)
[2022-01-19 13:15] LABS: ALBUMIN 3.2 g/dl (3.4-5.0); BLOOD UREA NITROGEN 26.3 mg/dL (7-18); MAGNESIUM 2.2 mg/dL (1.8-2.4)
[2022-01-19 13:17] LABS: BILIRUBIN,DIRECT 0.2 mg/dL (0.0-0.2)
[2022-01-19 13:18] LABS: CREATININE 2.3 mg/dL (0.55-1.3)
[2022-01-19 13:19] LABS: BILIRUBIN,TOTAL 0.9 mg/dL (0.2-1); TOT PROT 6.4 g/dl (6.4-8.2)
[2022-01-19] MEDS ORDERED: POTASSIUM CHLORIDE TABS 20 MEQ TABLET.ER (FP) PO ONE (13:37)
[2022-01-19] MEDS ORDERED: PORTA CATH FLUSH 10 ML IVPUSH PRN (14:45)
== END 2022-01-19 15:45 | disposition home or self-care (01) ==
LOC: JONCCHEMO 08:15
PROVIDERS: ATTEND Internal Medicine Hematology & Oncology
PROC: 3E013GC Introduction of Other Therapeutic Substance into Subcutaneous Tissue, Percutaneous Approach (ICD-10-PCS; principal; 2022-01-19)
PROC: 3E0437Z Introduction of Electrolytic and Water Balance Substance into Central Vein, Percutaneous Approach (ICD-10-PCS; 2022-01-19)
DX: C18.1 Malignant neoplasm of appendix (principal); Z76.89 Persons encountering health services in other specified circumstances
CPT/HCPCS: 36415; 80048; 80076; 83735; 85025; 96360; 96372; J1447

== ENCOUNTER 2022-01-20 07:00 | Day surgery (SDC) | payer BC ==
[2022-01-20] MEDS ORDERED: TBO-FILGRASTIM 480 MCG/0.8 ML DISP.SYRIN SQ ONE (08:00)
[2022-01-20 15:26] VITALS: BP 107/85; PULSE 104; RESP 18; TEMP 97.8
== END 2022-01-20 10:20 | disposition home or self-care (01) ==
LOC: JONCCHEMO 07:00
PROVIDERS: ATTEND Internal Medicine Hematology & Oncology
PROC: 3E013GC Introduction of Other Therapeutic Substance into Subcutaneous Tissue, Percutaneous Approach (ICD-10-PCS; principal; 2022-01-20)
DX: C18.1 Malignant neoplasm of appendix (principal); Z76.89 Persons encountering health services in other specified circumstances
CPT/HCPCS: 96372; J1447

== ENCOUNTER 2022-01-25 07:23 | Day surgery (SDC) | payer BC ==
[2022-01-25] MEDS ORDERED: SODIUM CHLORIDE 250 ML IV ONE (09:00)
[2022-01-25] MEDS ORDERED: DEXAMETHASONE SODIUM PHOSPHATE 8 MG in SODIUM CHLORIDE 50 ML IVPB ONE (09:30)
[2022-01-25] MEDS ORDERED: PALONOSETRON HCL 0.25 MG/5 ML VIAL IVPUSH ONE (09:30)
[2022-01-25] MEDS ORDERED: ATROPINE SO4 0.4 MG/1 ML VIAL SQ ONE (09:30)
[2022-01-25] MEDS ORDERED: DEXTROSE 5% IVPB ONE ×2 (10:00)
[2022-01-25] MEDS ORDERED: WATER IVPB ONE ×2 (10:00)
[2022-01-25] MEDS ORDERED: IRINOTECAN HCL IVPB ONE (10:00)
[2022-01-25] MEDS ORDERED: LEUCOVORIN IVPB ONE (10:00)
[2022-01-25 11:22] VITALS: PULSE 93; RESP 20; TEMP 98.3
[2022-01-25 11:22] LABS: BASO % 0.6 % (0-2.0); EOS % 0.9 % (0-4.5); HEMATOCRIT 36.5 % (35.4-49); HEMOGLOBIN 12.4 GM/dL (11.7-16.9); LYMPH % 18.6 % (8-40); MCH 30.4 pg (25.7-33.7); MEAN CELL VOLUME 89.4 fl (80-96); MEAN PLT VOLUME 7.3 fl (7.5-11.1); MONO % 12.8 % (3.8-10.2); NEUT % 67.1 % (42.8-82.8); PLATELET COUNT 379 10^3/uL (134-434); RBC 4.08 M/mm3 (4.00-5.60); RDW 16.1 % (11.9-15.9); WHITE BLOOD COUNT 8.3 K/mm3 (4.0-10.0)
[2022-01-25] MEDS ORDERED: FLUOROURACIL 2,500 MG/50 ML VIAL IVPUSH ONE (11:30)
[2022-01-25 11:37] LABS: CHLORIDE 101 mmol/L (98-107); SODIUM 141 mmol/L (136-145)
[2022-01-25 11:41] LABS: ALBUMIN 3.1 g/dl (3.4-5.0); BLOOD UREA NITROGEN 24.2 mg/dL (7-18); CALCIUM 8.9 mg/dL (8.5-10.1); CO2 30 mmol/L (21-32)
[2022-01-25 11:42] LABS: GLUCOSE,RANDOM 104 mg/dL (74-106)
[2022-01-25 11:43] LABS: BILIRUBIN,DIRECT 0.2 mg/dL (0.0-0.2); CREATININE 2.2 mg/dL (0.55-1.3); SGOT/AST 17 U/L (15-37); SGPT/ALT 16 U/L (13-61)
[2022-01-25 11:45] LABS: BILIRUBIN,TOTAL 0.8 mg/dL (0.2-1); TOT PROT 6.2 g/dl (6.4-8.2)
[2022-01-25] MEDS ORDERED: FLUOROURACIL CP ONE (11:45)
[2022-01-25] MEDS ORDERED: SODIUM CHLORIDE CP ONE (11:45)
[2022-01-25 11:47] LABS: ALK PHOS 181 U/L (45-117)
[2022-01-25 11:53] LABS: ANION GAP 10 MMOL/L (8-16)
[2022-01-25] MEDS ORDERED: PORTA CATH FLUSH 10 ML IVPUSH PRN (11:58)
[2022-01-25] MEDS ORDERED: POTASSIUM CHLORIDE TABS 20 MEQ TABLET.ER (FP) PO ONE ×2 (12:05→12:06)
[2022-01-25 15:57] VITALS: BP 115/81
== END 2022-01-25 16:00 | disposition home or self-care (01) ==
LOC: JONCCHEMO 07:23
PROVIDERS: ATTEND Internal Medicine Hematology & Oncology
PROC: 3E04305 Introduction of Other Antineoplastic into Central Vein, Percutaneous Approach (ICD-10-PCS; principal; 2022-01-25)
PROC: 3E013GC Introduction of Other Therapeutic Substance into Subcutaneous Tissue, Percutaneous Approach (ICD-10-PCS; 2022-01-25)
DX: Z51.11 Encounter for antineoplastic chemotherapy (principal); C18.1 Malignant neoplasm of appendix
CPT/HCPCS: 36415; 80048; 80076; 82378; 83735; 85025; 96366; 96367; 96372; 96375; 96411; 96413; G0498; J2469; J9206

== ENCOUNTER 2022-01-27 06:32 | Day surgery (SDC) | payer BC ==
[2022-01-27] MEDS ORDERED: D5-1/2NS+40 MEQ KCL - 20 MEQ/500 ML INFUS.BAG IV ONE (10:00)
[2022-01-27] MEDS ORDERED: MAGNESIUM 1GM/D5W - 1 GM/100 ML IVPB IVPB ONE (10:00)
[2022-01-27 16:26] VITALS: BP 129/84; PULSE 104; RESP 18; TEMP 98.3
[2022-01-27] MEDS ORDERED: PORTA CATH FLUSH 10 ML IVPUSH PRN (16:26)
== END 2022-01-27 16:43 | disposition home or self-care (01) ==
LOC: JONCCHEMO 06:32
PROVIDERS: ATTEND Internal Medicine Hematology & Oncology
PROC: 3E033GC Introduction of Other Therapeutic Substance into Peripheral Vein, Percutaneous Approach (ICD-10-PCS; principal; 2022-01-27)
PROC: 3E0337Z Introduction of Electrolytic and Water Balance Substance into Peripheral Vein, Percutaneous Approach (ICD-10-PCS; 2022-01-27)
DX: Z76.89 Persons encountering health services in other specified circumstances (principal); C18.1 Malignant neoplasm of appendix
CPT/HCPCS: 96365; 96366; 96368